=== PATIENT | male | born 1970 | race Caucasian/White ===

== ENCOUNTER 2016-06-19 17:59 | Inpatient (IN) | payer OTHER ==
[~2016-06-19] VITALS: Ht 188 cm; Wt 123.0 kg
[2016-06-19] MEDS ORDERED: METF750T2 PO (19:15)
[2016-06-19] MEDS ORDERED: LISI10TA2 PO (19:15)
[2016-06-19] MEDS ORDERED: INSU200I SQ (19:15)
[2016-06-19] MEDS ORDERED: SULF1TAB35 PO (19:15)
[2016-06-19] MEDS ORDERED: ATOR20TA66 PO (19:15)
[2016-06-19] MEDS ORDERED: CLIN300C11 PO (19:15)
[2016-06-19] MEDS ORDERED: MULT-35 PO (19:15)
[2016-06-19] MEDS ORDERED: HYDROcodone/APAP 7.5 MG/325 MG (LORTAB, LORCET PLUS) TABLET PO STA (19:33)
--- NOTE | 2016-06-19 19:41 | ED Lower Extremity ---
General Chief Complaint: Lower Extremity Stated Complaint: RT FOOT SWELLING,PAIN Nursing Triage Note: PT REPORTS HE SAW DR MCDONALD LAST , STARTED ON CLINDAMYCIN FOR RIGHT GREAT TOE ABSCESS. PAIN, REDNESS, SWELLING WORSENING. ADD'L ABX TODAY, BACTRIM. PT REPORTS PAIN IS UNBEARABLE. APPT WITH WOUND CARE SE[facility]. Nursing Sepsis Screen: Possible Sepsis Risk History of Present Illness Time seen by provider: 19:25 Initial Comments concerns about skin ulcer right great toe, started with blister to medial aspect at IP joint 2 weeks ago[address] Tre[address] by Dr. Mcdonald, starting with Clindamycin. Was told the culture grew 2-3 different bacteria. Called clinic today for increased pain, was not evaluated, started on Bactrim. Here for uncontrolled pain. Saw his Surveillance Manager 2 weeks ago, wound was not this progressed at that time. Patient went into DKA October 2015, no longer able to take Invokana. Has appt in wound care tomorrow. Severity: moderate (7/10) Pain/Injury Location: right 1st toe Method of Injury: other (Ulcer) Modifying Factors: Improves With Rest Allergies and Home Medications Allergies Coded Allergies: canagliflozin (Unverified Adverse Reaction, Unknown, 06/19/16) Home Medications Atorvastatin Calcium 20 Mg Tablet #30 20 MG PO DAILY (Reported) Clindamycin HCl 300 Mg Capsule #21 300 MG PO TID (Reported) Insulin Lispro 200 Unit/1 Ml Insuln.pen #12 42-46 UNITS SC TID (Reported) Lisinopril 10 Mg Tablet #30 10 MG PO DAILY (Reported) Metformin HCl 750 Mg Tab.er.24h #30 750 MG PO DAILY (Reported) Multivitamin 1 Each Tablet 1 EACH PO DAILY (Reported) Sulfamethoxazole/Trimethoprim 1 Each Tablet 1 EACH PO BID (Reported) Constitutional: no symptoms reported see HPI EENTM: no symptoms reported see HPI Respiratory: no symptoms reported see HPI Cardiovascular: no symptoms reported see HPI Gastrointestinal: no symptoms reported see HPI Genitourinary: no symptoms reported see HPI Musculoskeletal: see HPI joint pain (Right great toe) joint swelling muscle pain Skin: see HPI change in color (Right foot and great toe) lesions (Ulcer right great toe, IP joint laterally) Psychiatric/Neurological: No Symptoms Reported See HPI All Other Systems Reviewed Negative Unless Noted: Yes Past Bujvbxr-Csbmpo-Oediaj Hx Patient Social History Alcohol Use: Denies Use Recreational Drug Use: No Smoking Status: Never a Smoker Recent Foreign Travel: No Contact w/Someone Who Travel: No Recent Infectious Disease Expo: No Recent Hopitalizations: No (10/2015 DKA ([facility])) Physical Abuse Screen: No Sexual Abuse: No Seasonal Allergies Seasonal Allergies: No Surgeries HX Surgeries: Yes (LEFT FOOT BONE BIOPSY) Respiratory Hx Respiratory Disorders: No Cardiovascular Hx Cardiac Disorders: No Neurological Hx Neurological Disorders: No Genitourinary Hx Genitourinary Disorders: No Endocrine Hx Endocrine Disorders: Yes Endocrine Disorders: Diabetes, Non-Insulin dep Reviewed Nursing Assessment Reviewed/Agree w Nursing PMH: Yes Physical Exam Vital Signs Vital Sign - Last 12Hours 06/19/16 19:04 Temp 99.1 Pulse 114 Resp 20 B/P 175/85 Capillary Refill : Less Than 3 Seconds General Appearance: WD/WN HEENT: PERRL/EOMI normal ENT inspection TMs normal pharynx normal Neck: non-tender full range of motion supple Cardiovascular: normal peripheral pulses regular rate, rhythm no edema no murmur Respiratory: chest non-tender lungs clear normal breath sounds no respiratory distress no accessory muscle use Gastrointestinal: normal bowel sounds non tender soft Hips: bilateral hip non-tender, bilateral hip normal inspection, bilateral hip normal range of motion Knees: bilateral knee non-tender, bilateral knee normal inspection, bilateral knee normal range of motion, bilateral knee no evidence of injury Ankles: bilateral ankle non-tender, bilateral ankle normal inspection, bilateral ankle normal range of motion, bilateral ankle no evidence of injury Feet: left foot non-tender, left foot normal inspection, left foot normal range of motion, left foot no evidence of injury, right foot abrasions/ lacerations, right foot bone tenderness, right foot deformity, right foot infection, bilateral foot limited range of motion, right foot pain, right foot soft tissue tenderness, right foot swelling Reflexes: 2+ knee (R), 2+ knee (L), 2+ ankle (R), 2+ ankle (L) Neurologic/Tendon: normal sensation normal motor functions normal tendon functions Neurologic/Psychiatric: no motor/sensory deficits alert normal mood/affect oriented x 3 Skin: normal color warm/dry Lymphatic: No inguinal node tender (R), No inguinal node tender (L) Comments Right foot, erythema midfoot over 1st and 2nd metatarsals to MTP joints. Great toe, hung in color from MTP distally. Unable to shahbaz. Cap refill < 3 sec to 2nd-5th toes. Stage 2 ulcer to lateral aspect of IP joint with eschar noted, serosanguineous drainage noted. Progress/Results/Core Measures Results/Orders Lab Results Laboratory Tests Test 06/19/16 19:49 06/19/16 20:16 06/19/16 21:00 06/19/16 21:14 Range/Units Alanine Aminotransferase (ALT/SGPT) 12 0-55 U/L Albumin 3.9 3.2-4.5 G/DL Alkaline Phosphatase 92 40-136 U/L Anion Gap 12 5-14 MMOL/L Aspartate Amino Transf (AST/SGOT) 14 5-34 U/L BUN/Creatinine Ratio 18 Band Neutrophils 22 % Basophils # (Auto) 0.0 0.0-0.1 10^3/uL Basophils % (Manual) 0 % Basophils (%) (Auto) 0 0-10 % Blood Morphology Comment NORMAL Blood Urea Nitrogen 17 7-18 MG/DL C-Reactive Protein High Sensitivity 15.15 H 0.00-0.50 MG/DL Calcium Level 9.4 8.5-10.1 MG/DL Carbon Dioxide Level 19 L 21-32 MMOL/L Chloride Level 98 98-107 MMOL/L Creatinine 0.93 0.60-1.30 MG/DL Eosinophils # (Auto) 0.0 0.0-0.3 10^3/uL Eosinophils % (Manual) 0 % Eosinophils (%) (Auto) 0 0-10 % Erythrocyte Sedimentation Rate 7 0-15 MM/HR Estimat Glomerular Filtration Rate > 60 Glucose Level 266 H 70-105 MG/DL Hematocrit 39 L 40-54 % Hemoglobin 13.7 13.3-17.7 G/DL Lymphocytes # (Auto) 1.1 1.0-4.0 X 10^3 Lymphocytes % (Manual) 18 % Lymphocytes (%) (Auto) 7 L 12-44 % Mean Corpuscular Hemoglobin 31 25-34 PG Mean Corpuscular Hemoglobin Concent 35 32-36 G/DL Mean Corpuscular Volume 87 80-99 FL Mean Platelet Volume 9.7 7.4-10.4 FL Monocytes # (Auto) 1.9 H 0.0-1.0 X 10^3 Monocytes % (Manual) 7 % Monocytes (%) (Auto) 13 H 0-12 % Neutrophils # (Auto) 11.6 H 1.8-7.8 X 10^3 Neutrophils % (Manual) 53 % Neutrophils (%) (Auto) 80 H 42-75 % Platelet Count 280 130-400 10^3/uL Potassium Level 4.2 3.6-5.0 MMOL/L Red Blood Count 4.47 4.35-5.85 10^6/uL Red Cell Distribution Width 11.7 10.0-14.5 % Sodium Level 129 L 135-145 MMOL/L Total Bilirubin 1.1 H 0.1-1.0 MG/DL Total Protein 7.7 6.4-8.2 G/DL White Blood Count 14.6 H 4.3-11.0 10^3/uL Lactic Acid Level 1.0 1.3 0.5-2.0 MMOL/L Urine Bacteria NONE /HPF Urine Bilirubin NEGATIVE NEGATIVE Urine Casts NONE /LPF Urine Clarity CLEAR Urine Color YELLOW Urine Crystals NONE /LPF Urine Culture Indicated NO Urine Glucose (UA) 4+ H NEGATIVE Urine Ketones 4+ H NEGATIVE Urine Leukocyte Esterase NEGATIVE NEGATIVE Urine Mucus NEGATIVE /LPF Urine Nitrite NEGATIVE NEGATIVE Urine Protein 2+ H NEGATIVE Urine RBC 0-2 /HPF Urine RBC (Auto) 1+ H NEGATIVE Urine Specific [place] 1.015 L 1.016-1.022 Urine Squamous Epithelial Cells 2-5 /HPF Urine Urobilinogen 4 H NORMAL MG/DL Urine WBC NONE /HPF Urine pH 6 5-9 My Orders Orders-RAJIV MOREIRA Cbc With Automated Diff (06/19/16 19:33) Comprehensive Metabolic Panel (06/19/16 19:33) Hs C Reactive Protein (06/19/16 19:33) Erythrocyte Sedimentation Rate (06/19/16 19:33) Lactic Acid Analyzer (06/19/16 19:33) Ua Culture If Indicated (06/19/16 19:33) Foot, Right, 3 View (06/19/16 19:33) Hydrocodone/Apap 7.5/325 Tab (Lortab 7. (06/19/16 19:33) Saline Lock/Iv-Start (06/19/16 19:35) Manual Differential (06/19/16 19:49) Saline Lock/Iv-Start (06/19/16 20:44) Ns Iv 1000 Ml (Sodium Chloride 0.9%) (06/19/16 20:44) Ns Iv 1000 Ml (Sodium Chloride 0.9%) (06/19/16 20:39) Blood Culture (06/19/16 20:51) Lactic Acid Analyzer (06/19/16 20:51) Ibuprofen Tablet (Motrin Tablet) (06/19/16 21:38) Medications Given in ED Current Medications Medications Dose Ordered Sig/Elida Route Start Time Stop Time Status Last Admin Dose Admin Sodium Chloride 1,000 ml @ 0 mls/hr Q0M ONCE IV 06/19/16 20:44 06/19/16 20:45 DC 06/19/16 20:30 1,000 MLS/HR Vital Signs/I&O Vital Sign - Last 12Hours 06/19/16 19:04 Temp 99.1 Pulse 114 Resp 20 B/P 175/85 Blood Pressure Mean: 115 Progress Note : Time: 19:25 Progress Note Initial evaluation completed. Concerns over osteomyelitis. From MTP distally, on right great toe, the skin is nonblanchable and hung. Labs, x-rays and analgesics ordered. 1999 Reviewed x-ray findings with patient, concerns of osteomyelitis to distal phalanx right great toe. 2029 WBC 14.6; Lactic Acid 1.0; ESR 7, CRP 15.15; Na 129, Glucose 266. IV 1Liter NS started. [address] Barton, will admit for observation, start Vancomycin 1 gram IV in ED, Insulin [address] Chang will adjust the antibiotic orders tomorrow, based on cultures Dr. Mcdonald obtained last week. Admission bridge orders completed. Diagnostic Imaging Diagonstic Imaging: Xray Plain Films/CT/US/NM/MRI: other (right foot) Comments NAME: STEVEN CARBAJAL [facility] REC#: [id number] PT STATUS: REG ER : 1970 PHYSICIAN: RAJIV MOREIRA ADMIT DATE: 06/19/16/ER Draft Date of Exam:06/19/16 FOOT, RIGHT, 3 VIEW INDICATION: Blister along the medial side of the great toe for approximately 3-4 weeks. Blister has popped, now with swelling and discoloration to the toe radiating into the right toes. TECHNIQUE: 3 views of the right foot CORRELATION STUDY: None FINDINGS: There is a large amount of soft tissue gas over the region of the great toe and interposed between the first and second digits. There is fracture or destructive type change involving the of base of the distal phalanx of the great toe, extending into the interphalangeal joint. The proximal phalanx has a more normal appearance. The remaining osseous structures overall appear to be intact. Mild degenerative changes with mild osteophyte formation at the first MTP joint. Vascular calcifications are present. Prominent calcaneal spurring. IMPRESSION: 1. Soft tissue gas collections and swelling centered at the level of the great toe and interposed between the first and second digits. 2. There is a multipart fracture or perhaps destructive changes involving the base of the distal phalanx of the great toe. Given history, the possibility of osteomyelitis is not excluded. This could also be perhaps posttraumatic. Dictated on workstation # [id number] Dict: 06/19/161945 Trans: 06/19/161956 [facility] [id number] Interpreted by: CARLY BLISS DO Electronically signed by: Reviewed: Reviewed by Me Departure Impression Impression: Primary Impression: Ulcer Additional Impression: Osteomyelitis of ankle or foot, right, acute Disposition: 09 ADMITTED INPATIENT Condition: Stable Decision to Admit Reason: Admit from ER (General) Time/Decision to Admit Time: 21:30 Departure-Patient Inst. Referrals: JANUARY MCDONALD MD (PCP/Family) Primary Care Physician Copy Copies To 1: JANUARY MCDONALD MD Copies To 2: TITA SOTELO MD, AMY ARNP Jun 19, 2016 19:41 Copy Copies To 1: JANUARY MCDONALD MD Copies To 2: TITA SOTELO MD, AMY ARNP Jun 19, 2016 19:41
--- NOTE | 2016-06-19 19:57 | Diagnostic Imaging Report ---
INDICATION: Blister along the medial side of the great toe for approximately 3-4 weeks. Blister has popped, now with swelling and discoloration to the toe radiating into the right toes. TECHNIQUE: 3 views of the right foot CORRELATION STUDY: None FINDINGS: There is a large amount of soft tissue gas over the region of the great toe and interposed between the first and second digits. There is fracture or destructive type change involving the of base of the distal phalanx of the great toe, extending into the interphalangeal joint. The proximal phalanx has a more normal appearance. The remaining osseous structures overall appear to be intact. Mild degenerative changes with mild osteophyte formation at the first MTP joint. Vascular calcifications are present. Prominent calcaneal spurring. IMPRESSION: 1. Soft tissue gas collections and swelling centered at the level of the great toe and interposed between the first and second digits. 2. There is a multipart fracture or perhaps destructive changes involving the base of the distal phalanx of the great toe. Given history, the possibility of osteomyelitis is not excluded. This could also be perhaps posttraumatic. Dictated by: Dictated on workstation # [id number]
[2016-06-19 20:02] LABS: BASOPHILS % (AUTO) 0 % (0-10); EOSINOPHILS % (AUTO) 0 % (0-10); LYMPHOCYTES # (AUTO) 1.1 X 10^3 (1.0-4.0); LYMPHOCYTES % (AUTO) 7 % (12-44); MEAN CORPUSCULAR HEMOGLOBIN 31 PG (25-34); MEAN CORPUSCULAR HGB CONC 35 G/DL (32-36); MEAN CORPUSCULAR VOLUME 87 FL (80-99); MEAN PLATELET VOLUME 9.7 FL (7.4-10.4); MONOCYTES # (AUTO) 1.9 X 10^3 (0.0-1.0); MONOCYTES % (AUTO) 13 % (0-12); NEUTROPHILS # (AUTO) 11.6 X 10^3 (1.8-7.8); NEUTROPHILS % (AUTO) 80 % (42-75); PLATELET COUNT 280 10^3/uL (130-400); RED BLOOD COUNT 4.47 10^6/uL (4.35-5.85); RED CELL DISTRIBUTION WIDTH 11.7 % (10.0-14.5); WHITE BLOOD COUNT 14.6 10^3/uL (4.3-11.0)
[2016-06-19 20:17] LABS: BAND NEUTROPHILS 22 %; BASOPHILS % (MANUAL) 0 %; EOSINOPHILS % (MANUAL) 0 %; LYMPHOCYTES % (MANUAL) 18 %; NEUTROPHILS % (MANUAL) 53 %
[2016-06-19 20:23] LABS: ALANINE AMINOTRANSFERASE 12 U/L (0-55); ALBUMIN 3.9 G/DL (3.2-4.5); ANION GAP 12 MMOL/L (5-14); ASPARTATE AMINO TRANSFERASE 14 U/L (5-34); BILIRUBIN,TOTAL 1.1 MG/DL (0.1-1.0); BLOOD UREA NITROGEN 17 MG/DL (7-18); BUN/CREATININE RATIO 18; CALCIUM 9.4 MG/DL (8.5-10.1); CARBON DIOXIDE 19 MMOL/L (21-32); CHLORIDE 98 MMOL/L (98-107); CREATININE SERUM 0.93 MG/DL (0.60-1.30); GFR ESTIMATED > 60; GLUCOSE 266 MG/DL (70-105); POTASSIUM 4.2 MMOL/L (3.6-5.0); SODIUM 129 MMOL/L (135-145); TOTAL PROTEIN 7.7 G/DL (6.4-8.2); hs C REACTIVE PROTEIN 15.15 MG/DL (0.00-0.50)
[2016-06-19 20:27] LABS: ERYTHROCYTE SEDIMENTATION RATE 7 MM/HR (0-15)
[2016-06-19] MEDS ORDERED: NS IV 1000 ML 1,000 ML ONE (20:39)
[2016-06-19] MEDS ORDERED: NS IV 1000 ML 1,000 ML IV ONE (20:44)
[2016-06-19 21:07] LABS: BILIRUBIN,URINE NEGATIVE (NEGATIVE); KETONES,URINE 4+ (NEGATIVE); LEUKOCYTE ESTERASE ,URINE NEGATIVE (NEGATIVE); NITRITE,URINE NEGATIVE (NEGATIVE); PH,URINE 6 (5-9); PROTEIN,URINE 2+ (NEGATIVE); UROBILINOGEN,URINE 4 MG/DL (NORMAL)
[2016-06-19] MEDS ORDERED: IBUPROFEN 800 MG (MOTRIN) TAB PO STA (21:38)
[2016-06-19] MEDS ORDERED: inSUlin (REGULAR) HUMAN 1 UNIT/0.01 ML (CHARGE PER UNIT) SC STA (21:53)
[2016-06-19] MEDS ORDERED: SODIUM CHLORIDE (ADD-VANTAGE) 250 ML ONE (21:57)
[2016-06-19] MEDS ORDERED: VANCOMYCIN 1 GM ADD-VANTAGE VIAL IV ONE (21:57)
[2016-06-19] MEDS ORDERED: VANCOMYCIN IV ADD-VANTAGE 1,000 MG in SODIUM CHLORIDE (ADD-VANTAGE) 250 ML IV ONE (22:00)
[2016-06-19 22:45] VITALS: BP 140/78
[2016-06-19] MEDS ORDERED: IBUPROFEN 800 MG (MOTRIN) TAB PO PRN (23:30)
[2016-06-19] MEDS ORDERED: ONDANSETRON 4 MG/2 ML (SDV) Z0FRAN IV PRN (23:30)
[2016-06-19] MEDS ORDERED: HYDROcodone/APAP 5 MG/325 MG (LORTAB) TAB PO PRN (23:30)
[2016-06-20] VITALS: BP 128/65
[2016-06-20] MEDS ORDERED: NS IV 1000 ML 1,000 ML ONE (00:32)
[2016-06-20] MEDS: NS IV 1000 ML 1,000 ML IV SCH (00:53)
[2016-06-20 04:00] VITALS: BP 150/80
[2016-06-20 05:35] LABS: BASOPHILS % (AUTO) 0 % (0-10); EOSINOPHILS # (AUTO) 0.1 10^3/uL (0.0-0.3); EOSINOPHILS % (AUTO) 1 % (0-10); LYMPHOCYTES # (AUTO) 1.4 X 10^3 (1.0-4.0); LYMPHOCYTES % (AUTO) 13 % (12-44); MEAN CORPUSCULAR HEMOGLOBIN 30 PG (25-34); MEAN CORPUSCULAR HGB CONC 34 G/DL (32-36); MEAN CORPUSCULAR VOLUME 88 FL (80-99); MEAN PLATELET VOLUME 9.7 FL (7.4-10.4); MONOCYTES # (AUTO) 1.4 X 10^3 (0.0-1.0); MONOCYTES % (AUTO) 13 % (0-12); NEUTROPHILS # (AUTO) 7.8 X 10^3 (1.8-7.8); NEUTROPHILS % (AUTO) 74 % (42-75); PLATELET COUNT 226 10^3/uL (130-400); RED BLOOD COUNT 4.04 10^6/uL (4.35-5.85); RED CELL DISTRIBUTION WIDTH 11.8 % (10.0-14.5); WHITE BLOOD COUNT 10.6 10^3/uL (4.3-11.0)
[2016-06-20] MEDS: inSUlin (REGULAR) HUMAN 1 UNIT/0.01 ML (CHARGE PER UNIT) SC SCH ×4 (05:52→21:31)
[2016-06-20 05:54] LABS: ALANINE AMINOTRANSFERASE 10 U/L (0-55); ALBUMIN 3.2 G/DL (3.2-4.5); ANION GAP 11 MMOL/L (5-14); ASPARTATE AMINO TRANSFERASE 11 U/L (5-34); BILIRUBIN,TOTAL 0.9 MG/DL (0.1-1.0); BLOOD UREA NITROGEN 14 MG/DL (7-18); BUN/CREATININE RATIO 16; CALCIUM 8.6 MG/DL (8.5-10.1); CARBON DIOXIDE 18 MMOL/L (21-32); CHLORIDE 104 MMOL/L (98-107); CREATININE SERUM 0.85 MG/DL (0.60-1.30); GFR ESTIMATED > 60; GLUCOSE 300 MG/DL (70-105); POTASSIUM 4.5 MMOL/L (3.6-5.0); SODIUM 133 MMOL/L (135-145); TOTAL PROTEIN 6.3 G/DL (6.4-8.2)
[2016-06-20 08:00] VITALS: BP 167/90
[2016-06-20] MEDS ORDERED: INSU100V6 SC (08:08)
[2016-06-20] MEDS ORDERED: IBUP-30 PO (08:11)
[2016-06-20] MEDS ORDERED: FLU TRIvalent (5 YOA+) 2016-17 (AFLURIA) 0.5 ML IM ONE (10:00)
[2016-06-20 12:00] VITALS: BP 128/76
[2016-06-20] MEDS ORDERED: IBUPROFEN TABLET 200 MG TAB PO PRN (12:00)
[2016-06-20] MEDS ORDERED: VANCOMYCIN INJECTION 0.1 MG in NS (IVPB) 250 ML IV SCH (12:00)
[2016-06-20] MEDS ORDERED: VANCOMYCIN 2000 MG/NS 500 ML IVPB IV NR ×2 (12:00)
[2016-06-20] MEDS: lisINopril 10 MG (PRINIVIL) TAB PO SCH (13:05)
[2016-06-20] MEDS: ATORVASTATIN 20 MG (LIPITOR) TABLET PO SCH (13:06)
[2016-06-20] MEDS: inSUlin ASPART (NovoLOG) 1 UNIT/0.01 ML (CHARGE PER UNIT) SC SCH ×2 (13:42→19:13)
[2016-06-20 16:00] VITALS: BP 155/84
[2016-06-20] MEDS ORDERED: inSUlin ASPART (NovoLOG) 1 UNIT/0.01 ML (CHARGE PER UNIT) SC SCH (16:00)
--- NOTE | 2016-06-20 17:56 | Wound Care Progress Note ---
Subjective Subjective Subjective/Events-last exam 45 year old male diabetic with poor control of glucoe levels and history of blister of great toe for ~ two weeks. Admitted with cellulitis. On exam, the patient noted to have gangrene of toe. Surgical consultation recommended, accepted and called. Review of Systems General: Chills Fatigue HEENT: Head Aches Pulmonary: No Dyspnea Cardiovascular: No: Chest Pain Gastrointestinal: : Nausea Neurological: : Numbness Objective Exam Last Set of Vital Signs Vital Signs Date Time Temp Pulse Resp B/P Pulse Ox O2 Delivery O2 Flow Rate FiO2 06/20/16 16:00 98.9 109 20 155/84 98 Room Air Capillary Refill : Less Than 3 Seconds I&O Bad tableGeneral: Mild Distress HEENT: Atraumatic Lungs: Normal Air Movement Extremities: Other (Red streaking of ankle.) Skin: Other (R great toe, 11.0 x 10.0 x 0.3 cm, 25% eschar, 75% cyanotic mottled skin, periwound erythema.) Results Lab Laboratory Tests 06/19/16 19:49: Alanine Aminotransferase (ALT/SGPT) 12, Albumin 3.9, Alkaline Phosphatase 92, Anion Gap 12, Aspartate Amino Transf (AST/SGOT) 14, BUN/Creatinine Ratio 18, Band Neutrophils 22, Basophils # (Auto) 0.0, Basophils % (Manual) 0, Basophils ( %) (Auto) 0, Blood Morphology Comment NORMAL, Blood Urea Nitrogen 17, C- Reactive Protein High Sensitivity 15.15H, Calcium Level 9.4, Carbon Dioxide Level 19L, Chloride Level 98, Creatinine 0.93, Eosinophils # (Auto) 0.0, Eosinophils % (Manual) 0, Eosinophils (%) (Auto) 0, Erythrocyte Sedimentation Rate 7, Estimat Glomerular Filtration Rate > 60, Glucose Level 266H, Hematocrit 39L, Hemoglobin 13.7, Lymphocytes # (Auto) 1.1, Lymphocytes % (Manual) 18, Lymphocytes (%) (Auto) 7L, Mean Corpuscular Hemoglobin 31, Mean Corpuscular Hemoglobin Concent 35, Mean Corpuscular Volume 87, Mean Platelet Volume 9.7, Monocytes # (Auto) 1.9H, Monocytes % (Manual) 7, Monocytes (%) (Auto) 13H, Neutrophils # (Auto) 11.6H, Neutrophils % (Manual) 53, Neutrophils (%) (Auto) 80H, Platelet Count 280, Potassium Level 4.2, Red Blood Count 4.47, Red Cell Distribution Width 11.7, Sodium Level 129L, Total Bilirubin 1.1H, Total Protein 7.7, White Blood Count 14.6H 06/19/16 20:16: Lactic Acid Level 1.0 06/19/16 21:00: Urine Bacteria NONE, Urine Bilirubin NEGATIVE, Urine Casts NONE, Urine Clarity CLEAR, Urine Color YELLOW, Urine Crystals NONE, Urine Culture Indicated NO, Urine Glucose (UA) 4+H, Urine Ketones 4+H, Urine Leukocyte Esterase NEGATIVE, Urine Mucus NEGATIVE, Urine Nitrite NEGATIVE, Urine Protein 2+H, Urine RBC 0-2, Urine RBC (Auto) 1+H, Urine Specific [place] 1.015L, Urine Squamous Epithelial Cells 2-5, Urine Urobilinogen 4H, Urine WBC NONE, Urine pH 6 06/19/16 21:14: Lactic Acid Level 1.3 06/20/16 05:20: Alanine Aminotransferase (ALT/SGPT) 10, Albumin 3.2, Alkaline Phosphatase 75, Anion Gap 11, Aspartate Amino Transf (AST/SGOT) 11, BUN/Creatinine Ratio 16, Basophils # (Auto) 0.0, Basophils (%) (Auto) 0, Blood Urea Nitrogen 14, Calcium Level 8.6, Carbon Dioxide Level 18L, Chloride Level 104, Creatinine 0.85, Eosinophils # (Auto) 0.1, Eosinophils (%) (Auto) 1, Estimat Glomerular Filtration Rate > 60, Glucose Level 300H, Hematocrit 36L, Hemoglobin 12.2L, Lymphocytes # (Auto) 1.4, Lymphocytes (%) (Auto) 13, Mean Corpuscular Hemoglobin 30, Mean Corpuscular Hemoglobin Concent 34, Mean Corpuscular Volume 88, Mean Platelet Volume 9.7, Monocytes # (Auto) 1.4H, Monocytes (%) (Auto) 13H , Neutrophils # (Auto) 7.8, Neutrophils (%) (Auto) 74, Platelet Count 226, Potassium Level 4.5, Red Blood Count 4.04L, Red Cell Distribution Width 11.8, Sodium Level 133L, Total Bilirubin 0.9, Total Protein 6.3L, White Blood Count 10.6 06/20/16 05:41: Glucometer 277H 06/20/16 09:32: Glucometer 301H 06/20/16 11:22: Glucometer 296H Microbiology 06/19/16 Blood Culture - Preliminary, Resulted No growth 06/19/16 Gram Stain - Final, Resulted 06/19/16 Anaerobic Culture, Resulted Pending 06/19/16 Wound Culture - Preliminary, Resulted Escherichia Coli Probable Enterococcus Species Assessment/Plan Assessment/Plan Assessment/Plan 1. Diabetic ulcer, R great toe, Grade 4. 2. Cellulitis of R foot. Plan: Podiatric consultation. TITA SOTELO MD Jun 20, 2016 17:56
--- NOTE | 2016-06-20 17:58 | History & Physicial ([facility]) ---
HPI History of Present Illness: 45 yo M with IDDM that noticed a blister on his R foot a couple weeks ago. Seen in clinic and started on clindamycin. Yesterday called the clinic with increased pain and drainage and was started on Bactrim. Patient then went to ER because the pain increased. He has had similar wound on his other foot. Other then the pain he has been feeling well. No recent trauma to food. Source: patient, RN/MD, old records Exam Limitations: no limitations Date seen by provider: Jun 20, 2016 Attending Physician Nay Barton MD PCP Anjel Mcdonald MD Consult Date of Admission Jun 19, 2016 at 21:50 Home Medications Home Medications Reviewed patient Home Medication Reconciliation Form Allergies Coded Allergies: canagliflozin (Unverified Adverse Reaction, Unknown, 06/19/16) APE-Dogdbw-Opurep Hx Patient Social History Living Status: Lives with Alcohol Use: Denies Use Recreational Drug Use: No Smoking Status: Never a Smoker Recent Foreign Travel: No Contact w/other who traveled: No Recent Hopitalizations: No (10/2015 DKA ([facility])) Recent Infectious Disease Expo: No Physical Abuse Screen: No Sexual Abuse: No Past Medical History IDDM II HTN Family Medical History Family History: Diabetes mellitus 19 FATHER G8 SISTER FH: pulmonary embolism 19 FATHER Myocardial infarction 19 FATHER Review of Systems ([facility]) Constitutional: no symptoms reportedNo chills, No fever, No malaise, No weakness EENTM: no symptoms reported Respiratory: no symptoms reportedNo cough, No dyspnea on exertion, No short of breath Cardiovascular: no symptoms reportedNo chest pain, No edema Gastrointestinal: no symptoms reportedNo constipation, No diarrhea, No nausea , No vomiting Genitourinary: no symptoms reportedNo dysuria, No frequency, No hematuria Musculoskeletal: joint pain (right foot) Skin: other (No other ulcers present) Psychiatric/Neurological: No Symptoms Reported Reviewed Test Results Reviewed Test Results Lab Laboratory Tests Test 06/19/16 19:49 06/19/16 20:16 06/19/16 21:00 06/19/16 21:14 Range/Units Alanine Aminotransferase (ALT/SGPT) 12 0-55 U/L Albumin 3.9 3.2-4.5 G/DL Alkaline Phosphatase 92 40-136 U/L Anion Gap 12 5-14 MMOL/L Aspartate Amino Transf (AST/SGOT) 14 5-34 U/L BUN/Creatinine Ratio 18 Band Neutrophils 22 % Basophils # (Auto) 0.0 0.0-0.1 10^3/uL Basophils % (Manual) 0 % Basophils (%) (Auto) 0 0-10 % Blood Morphology Comment NORMAL Blood Urea Nitrogen 17 7-18 MG/DL C-Reactive Protein High Sensitivity 15.15 H 0.00-0.50 MG/DL Calcium Level 9.4 8.5-10.1 MG/DL Carbon Dioxide Level 19 L 21-32 MMOL/L Chloride Level 98 98-107 MMOL/L Creatinine 0.93 0.60-1.30 MG/DL Eosinophils # (Auto) 0.0 0.0-0.3 10^3/uL Eosinophils % (Manual) 0 % Eosinophils (%) (Auto) 0 0-10 % Erythrocyte Sedimentation Rate 7 0-15 MM/HR Estimat Glomerular Filtration Rate > 60 Glucose Level 266 H 70-105 MG/DL Hematocrit 39 L 40-54 % Hemoglobin 13.7 13.3-17.7 G/DL Lymphocytes # (Auto) 1.1 1.0-4.0 X 10^3 Lymphocytes % (Manual) 18 % Lymphocytes (%) (Auto) 7 L 12-44 % Mean Corpuscular Hemoglobin 31 25-34 PG Mean Corpuscular Hemoglobin Concent 35 32-36 G/DL Mean Corpuscular Volume 87 80-99 FL Mean Platelet Volume 9.7 7.4-10.4 FL Monocytes # (Auto) 1.9 H 0.0-1.0 X 10^3 Monocytes % (Manual) 7 % Monocytes (%) (Auto) 13 H 0-12 % Neutrophils # (Auto) 11.6 H 1.8-7.8 X 10^3 Neutrophils % (Manual) 53 % Neutrophils (%) (Auto) 80 H 42-75 % Platelet Count 280 130-400 10^3/uL Potassium Level 4.2 3.6-5.0 MMOL/L Red Blood Count 4.47 4.35-5.85 10^6/uL Red Cell Distribution Width 11.7 10.0-14.5 % Sodium Level 129 L 135-145 MMOL/L Total Bilirubin 1.1 H 0.1-1.0 MG/DL Total Protein 7.7 6.4-8.2 G/DL White Blood Count 14.6 H 4.3-11.0 10^3/uL Lactic Acid Level 1.0 1.3 0.5-2.0 MMOL/L Urine Bacteria NONE /HPF Urine Bilirubin NEGATIVE NEGATIVE Urine Casts NONE /LPF Urine Clarity CLEAR Urine Color YELLOW Urine Crystals NONE /LPF Urine Culture Indicated NO Urine Glucose (UA) 4+ H NEGATIVE Urine Ketones 4+ H NEGATIVE Urine Leukocyte Esterase NEGATIVE NEGATIVE Urine Mucus NEGATIVE /LPF Urine Nitrite NEGATIVE NEGATIVE Urine Protein 2+ H NEGATIVE Urine RBC 0-2 /HPF Urine RBC (Auto) 1+ H NEGATIVE Urine Specific [place] 1.015 L 1.016-1.022 Urine Squamous Epithelial Cells 2-5 /HPF Urine Urobilinogen 4 H NORMAL MG/DL Urine WBC NONE /HPF Urine pH 6 5-9 Test 06/20/16 05:20 06/20/16 05:41 06/20/16 09:32 06/20/16 11:22 Range/Units Alanine Aminotransferase (ALT/SGPT) 10 0-55 U/L Albumin 3.2 3.2-4.5 G/DL Alkaline Phosphatase 75 40-136 U/L Anion Gap 11 5-14 MMOL/L Aspartate Amino Transf (AST/SGOT) 11 5-34 U/L BUN/Creatinine Ratio 16 Basophils # (Auto) 0.0 0.0-0.1 10^3/uL Basophils (%) (Auto) 0 0-10 % Blood Urea Nitrogen 14 7-18 MG/DL Calcium Level 8.6 8.5-10.1 MG/DL Carbon Dioxide Level 18 L 21-32 MMOL/L Chloride Level 104 98-107 MMOL/L Creatinine 0.85 0.60-1.30 MG/DL Eosinophils # (Auto) 0.1 0.0-0.3 10^3/uL Eosinophils (%) (Auto) 1 0-10 % Estimat Glomerular Filtration Rate > 60 Glucose Level 300 H 70-105 MG/DL Hematocrit 36 L 40-54 % Hemoglobin 12.2 L 13.3-17.7 G/DL Lymphocytes # (Auto) 1.4 1.0-4.0 X 10^3 Lymphocytes (%) (Auto) 13 12-44 % Mean Corpuscular Hemoglobin 30 25-34 PG Mean Corpuscular Hemoglobin Concent 34 32-36 G/DL Mean Corpuscular Volume 88 80-99 FL Mean Platelet Volume 9.7 7.4-10.4 FL Monocytes # (Auto) 1.4 H 0.0-1.0 X 10^3 Monocytes (%) (Auto) 13 H 0-12 % Neutrophils # (Auto) 7.8 1.8-7.8 X 10^3 Neutrophils (%) (Auto) 74 42-75 % Platelet Count 226 130-400 10^3/uL Potassium Level 4.5 3.6-5.0 MMOL/L Red Blood Count 4.04 L 4.35-5.85 10^6/uL Red Cell Distribution Width 11.8 10.0-14.5 % Sodium Level 133 L 135-145 MMOL/L Total Bilirubin 0.9 0.1-1.0 MG/DL Total Protein 6.3 L 6.4-8.2 G/DL White Blood Count 10.6 4.3-11.0 10^3/uL Glucometer 277 H 301 H 296 H 70-110 MG/DL Radiology Date of Exam:06/19/16 FOOT, RIGHT, 3 VIEW INDICATION: Blister along the medial side of the great toe for approximately 3-4 weeks. Blister has popped, now with swelling and discoloration to the toe radiating into the right toes. TECHNIQUE: 3 views of the right foot CORRELATION STUDY: None FINDINGS: There is a large amount of soft tissue gas over the region of the great toe and interposed between the first and second digits. There is fracture or destructive type change involving the of base of the distal phalanx of the great toe, extending into the interphalangeal joint. The proximal phalanx has a more normal appearance. The remaining osseous structures overall appear to be intact. Mild degenerative changes with mild osteophyte formation at the first MTP joint. Vascular calcifications are present. Prominent calcaneal spurring. IMPRESSION: 1. Soft tissue gas collections and swelling centered at the level of the great toe and interposed between the first and second digits. 2. There is a multipart fracture or perhaps destructive changes involving the base of the distal phalanx of the great toe. Given history, the possibility of osteomyelitis is not excluded. This could also be perhaps posttraumatic. Physical Exam-([facility]) Physical Exam Vital Signs VS - Last 72 Hours, by Label 06/19/16 06/19/16 06/19/16 06/19/16 19:04 22:34 22:45 23:00 Temp 99.1 100.5 97.8 Pulse 114 119 117 Resp 20 20 18 B/P 175/85 140/78 Pulse Ox 99 96 O2 Delivery Room Air Room Air Room Air 06/19/16 06/20/16 06/20/16 06/20/16 23:09 00:00 04:00 08:00 Temp 97.5 96.0 99.3 Pulse 110 104 114 Resp 18 18 20 B/P 128/65 150/80 167/90 Pulse Ox 96 97 98 99 O2 Delivery Room Air Room Air Room Air 06/20/16 06/20/16 12:00 16:00 Temp 97.4 98.9 Pulse 112 109 Resp 20 20 B/P 128/76 155/84 Pulse Ox 97 98 O2 Delivery Room Air Room Air Capillary Refill : Less Than 3 Seconds General Appearance: WD/WN no apparent distress HEENT: PERRL/EOMI Neck: non-tender full range of motion supple normal inspection Respiratory: chest non-tender lungs clear normal breath sounds no respiratory distress no accessory muscle use Cardiovascular: regular rate, rhythm no edema no gallop no JVD no murmur Gastrointestinal: normal bowel sounds non tender soft no organomegaly no pulsatile mass Back: normal inspection no CVA tenderness no vertebral tenderness Extremities: no calf tenderness other (Ulcer present on Right great toe. Erythema on top of foot (marked with marker), seems to have receeded some with the antibiotics, Purulent drainage, probe to bone) Neurologic/Psychiatric: sales technician II-XII nml as tested alert normal mood/affect oriented x 3 sensory deficit (present on feet bilaterally) Assessment/Plan Assessment/Plan Admission Dx Diabetic foot ulcer Osteomyelitis Insulin Dependent DM II HTN Plan 45 yo M with known IDDM II admitted for Right foot wound Diabetic foot ulcer Right great toe - Dr Benavidez consulted for wound care and management - Cultures pending, Currently on Vancomycin - Concerned for need of amputation Osteomyelitis: See above Insulin Dependent DM II - Will start home insulin - A1c pending HTN: Controlled, continue home medications Dispo: Likely home tomorrow if surgery is not going to happen during this admission DVT PPX: Lovenox FEN: CHO diet Diagnosis/Problems: Clinical Quality Measures DVT/VTE Risk/Contraindication: Risk Factor Score Per Nursin RFS Level Per Nursing on Admit: 4+=Very High Copy Copies To 1: ANJEL MCDONALD MD, HOLLY R MD Jun 20, 2016 17:58
[2016-06-20] MEDS: IBUPROFEN 600 MG (MOTRIN) TAB PO PRN (19:15)
[2016-06-20 20:00] VITALS: BP 145/77
[2016-06-20] MEDS: VANCOMYCIN 1500 MG/NS 500 ML IVPB IV SCH ×2 (20:09)
[2016-06-20] MEDS ORDERED: IBUPROFEN 800 MG (MOTRIN) TAB PO PRN (23:30)
[2016-06-21] VITALS: BP 115/67
[2016-06-21] MEDS: NS IV 1000 ML 1,000 ML IV SCH ×2 (01:54→18:33)
[2016-06-21] MEDS: VANCOMYCIN 1500 MG/NS 500 ML IVPB IV SCH ×6 (04:57→21:08)
[2016-06-21 05:21] LABS: BASOPHILS % (AUTO) 0 % (0-10); EOSINOPHILS # (AUTO) 0.1 10^3/uL (0.0-0.3); EOSINOPHILS % (AUTO) 0 % (0-10); LYMPHOCYTES # (AUTO) 1.4 X 10^3 (1.0-4.0); LYMPHOCYTES % (AUTO) 12 % (12-44); MEAN CORPUSCULAR HEMOGLOBIN 31 PG (25-34); MEAN CORPUSCULAR HGB CONC 34 G/DL (32-36); MEAN CORPUSCULAR VOLUME 89 FL (80-99); MONOCYTES % (AUTO) 8 % (0-12); NEUTROPHILS # (AUTO) 9.8 X 10^3 (1.8-7.8); NEUTROPHILS % (AUTO) 80 % (42-75); PLATELET COUNT 269 10^3/uL (130-400); RED BLOOD COUNT 4.13 10^6/uL (4.35-5.85); RED CELL DISTRIBUTION WIDTH 11.8 % (10.0-14.5); WHITE BLOOD COUNT 12.4 10^3/uL (4.3-11.0)
[2016-06-21 05:39] LABS: ANION GAP 14 MMOL/L (5-14); BLOOD UREA NITROGEN 10 MG/DL (7-18); BUN/CREATININE RATIO 14; CALCIUM 8.7 MG/DL (8.5-10.1); CARBON DIOXIDE 15 MMOL/L (21-32); CHLORIDE 104 MMOL/L (98-107); CREATININE SERUM 0.74 MG/DL (0.60-1.30); GFR ESTIMATED > 60; GLUCOSE 242 MG/DL (70-105); POTASSIUM 4.2 MMOL/L (3.6-5.0); SODIUM 133 MMOL/L (135-145)
[2016-06-21] MEDS ORDERED: PIPERACILLIN SODIUM/TAZOBACTAM 4.5 GM in NS (BAXTER MINI) 100 ML IV NR (08:01)
[2016-06-21 08:20] VITALS: BP 118/56
[2016-06-21] MEDS ORDERED: lisINopril 10 MG (PRINIVIL) TAB PO SCH (09:00)
[2016-06-21] MEDS ORDERED: ATORVASTATIN 20 MG (LIPITOR) TABLET PO SCH (09:00)
[2016-06-21] MEDS ORDERED: LACTATED RINGERS 1,000 ML IV PRN (09:35)
--- NOTE | 2016-06-21 09:48 | CONSULTATION REPORT ---
DATE OF CONSULTATION: 06/21/2016 REFERRING PHYSICIAN: REASON FOR CONSULT: Diabetic foot ulceration. The patient developed a blister to the right great toe a little over week ago and was subsequently admitted through the ER, I believe a couple of days ago. The wound was evaluated by Dr. Cagle who suspected a deep abscess or osteomyelitis and consulted me for potential surgical intervention. The patient has had increased pain and discomfort with the toe over the last few days. He denies any trauma. He reports that it developed as a blister and then got progressively worse. PAST MEDICAL HISTORY: Includes: 1. IDDM type 2. 2. Hypertension. 3. He also has a recent hospitalization for DKA this last year at [place]. ALLERGIES: Canagliflozin. CURRENT MEDICATIONS: Listed on the patient's chart which includes: Vancomycin. SOCIAL HISTORY: The patient denies tobacco or alcohol or illicit drug use. He recently lost his employment. PHYSICAL EXAM: This is a well-developed male in no apparent distress. Current temperature is 99.2. White blood cell count is currently 12.4. The patient has palpable pedal pulses bilaterally. Capillary refill time is approximately 3 seconds to the left hallux. There is dusky discoloration to the right hallux with serous sanguinous drainage from the medial and dorsal aspect of the digit with edema present. There is proximal streaking demarcated previously with a pen which does not extend beyond the line of the medial aspect of the foot or the pen line. X-rays were reviewed which demonstrates gas within the right hallux and some fracture or disruption of bone to bone osteomyelitis. ASSESSMENT: Diabetic ulceration with cellulitis and likely osteomyelitis right hallux. PLAN: Various treatment options were discussed with the patient. We consented the patient for incision and drainage of the right hallux as well as a possible amputation of the digit today. He is to remain n.p.o. His antibiotics were changed to include Zosyn, as well as the vancomycin he is currently under. Job ID: [id number] Dictated Date: 06/21/2016 08:11:49 Sales Outfitter Date: 06/21/2016 09:20:18/jaki ROSENBAUM
[2016-06-21] MEDS: lisINopril 10 MG (PRINIVIL) TAB PO SCH ×2 (10:38→15:05)
[2016-06-21] MEDS: inSUlin (REGULAR) HUMAN 1 UNIT/0.01 ML (CHARGE PER UNIT) SC SCH ×4 (10:38→22:46)
[2016-06-21] MEDS: ATORVASTATIN 20 MG (LIPITOR) TABLET PO SCH ×2 (10:38→15:05)
[2016-06-21] MEDS: inSUlin ASPART (NovoLOG) 1 UNIT/0.01 ML (CHARGE PER UNIT) SC SCH ×3 (10:38→16:24)
[2016-06-21] MEDS ORDERED: FAMOTIDINE 20MG/2ML IV (PEPCID) ONE (11:24)
[2016-06-21] MEDS ORDERED: MIDAZOLAM 2 MG/2 ML (VERSED) VIAL ONE (11:24)
[2016-06-21] MEDS ORDERED: fentaNYL INJECTION 100 MCG/2 ML AMP ONE (11:24)
[2016-06-21] MEDS ORDERED: LACTATED RINGERS 1,000 ML IV ONE (11:24)
[2016-06-21] MEDS ORDERED: ONDANSETRON 4 MG/2 ML (SDV) Z0FRAN ONE ×3 (11:24→13:27)
[2016-06-21] MEDS ORDERED: SEVOFLURANE (ULTANE) 15 ML INHAL SOLN ONE ×3 (11:24→12:57)
[2016-06-21] MEDS ORDERED: LIDOCAINE PF 2% 10 ML (XYLOCAINE) AMP ONE (11:24)
[2016-06-21] MEDS ORDERED: proPOfol 200 MG/20 ML (DIPRIVAN) VIAL IV ONE (11:24)
[2016-06-21] MEDS: LACTATED RINGERS 1,000 ML IV SCH (12:38)
[2016-06-21] MEDS ORDERED: morphine INJ 10 MG/ML 1ML (SYR OR VIAL) ONE (12:46)
--- NOTE | 2016-06-21 12:50 | Progress Note-Pre Operative ---
Pre-Operative Progress Note H&P Reviewed The H&P was reviewed, patient examined and no changes noted. Date H&P Reviewed: Jun 21, 2016 Time H&P Reviewed: 11:58 Pre-Operative Diagnosis: Cellulitis, osteomyelitis, right hallux DALI MIRZA DPM Jun 21, 2016 12:49 pm
--- NOTE | 2016-06-21 12:51 | Progress Note-Post Operative ---
Post-Operative Progess Note Pre-Operative Diagnosis Cellulitis, osteomyelitis, right hallux Post-Operative Diagnosis Same Post-Op Procedure Note Date of Procedure: Jun 21, 2016 Name of Procedure: Amputation of the right hallux with incision and drainage of deep abscess Anesthesia Type General Estimated blood loss (mL): Minimal Packing: Iodoform Specimen(s) collected Right hallux DALI MIRZA DPM Jun 21, 2016 12:51 pm
[2016-06-21] MEDS ORDERED: TROUGH ORDER-PHARMACY XX NR (13:00)
[2016-06-21] MEDS ORDERED: HYDROcodone/APAP 5 MG/325 MG (LORTAB) TAB PO PRN (13:00)
[2016-06-21] MEDS ORDERED: ONDANSETRON 4 MG/2 ML (SDV) Z0FRAN IVP PRN ×2 (13:00→13:15)
[2016-06-21] MEDS ORDERED: HYDROmorphone (DILAUDID) 2 MG/ML VIAL IVP PRN (13:15)
[2016-06-21] MEDS ORDERED: morphine INJ 10 MG/ML 1ML (SYR OR VIAL) IVP PRN (13:15)
[2016-06-21] MEDS ORDERED: fentaNYL INJECTION 100 MCG/2 ML AMP IVP PRN (13:15)
[2016-06-21 14:24] VITALS: BP 138/83
--- NOTE | 2016-06-21 15:21 | Progress Note (SOAP) ---
Subjective Subjective/Events-last exam Saw patient after his operation. Patient had amputation of Right great toe. States that his pain is under control. Denies any N/V since surgery. Date seen by provider: Jun 21, 2016 Objective Exam Last Set of Vital Signs Vital Signs Date Time Temp Pulse Resp B/P Pulse Ox O2 Delivery O2 Flow Rate FiO2 06/21/16 14:24 97.9 106 22 138/83 93 2.00 06/21/16 08:20 Room Air Capillary Refill : Less Than 3 Seconds I&O Intake and Output 06/21/16 00:00 Intake Total 4391 ml Output Total 5250 ml Balance -859 ml Intake Oral 3106 ml IV Total 1285 ml Output Urine Total 5250 ml General: Alert, Oriented X3, Cooperative, No Acute Distress (sleepy) Lungs: Clear to Auscultation, Normal Air Movement Heart: Regular Rate, Normal S1, Normal S2, No Murmurs Abdomen: Normal Bowel Sounds, Soft, No Tenderness, No Hepatosplenomegaly, No Masses Extremities: Other (Right foot in bandage: mild swelling at the ankle level) Neuro: Normal Speech Psych/Mental Status: Mental Status NL, Mood NL Results/Procedures Lab Laboratory Tests 06/20/16 21:26: Glucometer 236H 06/21/16 05:00: Anion Gap 14, BUN/Creatinine Ratio 14, Basophils # (Auto) 0.0, Basophils (%) ( Auto) 0, Blood Urea Nitrogen 10, Calcium Level 8.7, Carbon Dioxide Level 15L, Chloride Level 104, Creatinine 0.74, Eosinophils # (Auto) 0.1, Eosinophils (%) ( Auto) 0, Estimat Glomerular Filtration Rate > 60, Glucose Level 242H, Hematocrit 37L, Hemoglobin 12.6L, Hemoglobin A1c 10.5H, Lymphocytes # (Auto) 1.4 , Lymphocytes (%) (Auto) 12, Mean Corpuscular Hemoglobin 31, Mean Corpuscular Hemoglobin Concent 34, Mean Corpuscular Volume 89, Mean Platelet Volume 10.0, Monocytes # (Auto) 1.0, Monocytes (%) (Auto) 8, Neutrophils # (Auto) 9.8H, Neutrophils (%) (Auto) 80H, Platelet Count 269, Potassium Level 4.2, Red Blood Count 4.13L, Red Cell Distribution Width 11.8, Sodium Level 133L, White Blood Count 12.4H 06/21/16 10:34: Glucometer 245H 06/21/16 13:51: Glucometer 247H 06/21/16 14:05: Vancomycin Level Trough 11.0 Microbiology 06/19/16 Blood Culture - Preliminary, Resulted No growth 06/19/16 Gram Stain - Final, Resulted 06/19/16 Anaerobic Culture - Preliminary, Resulted 06/19/16 Wound Culture - Preliminary, Resulted Escherichia Coli Enterococcus Faecalis Radiology Date of Exam:06/19/16 FOOT, RIGHT, 3 VIEW INDICATION: Blister along the medial side of the great toe for approximately 3-4 weeks. Blister has popped, now with swelling and discoloration to the toe radiating into the right toes. TECHNIQUE: 3 views of the right foot CORRELATION STUDY: None FINDINGS: There is a large amount of soft tissue gas over the region of the great toe and interposed between the first and second digits. There is fracture or destructive type change involving the of base of the distal phalanx of the great toe, extending into the interphalangeal joint. The proximal phalanx has a more normal appearance. The remaining osseous structures overall appear to be intact. Mild degenerative changes with mild osteophyte formation at the first MTP joint. Vascular calcifications are present. Prominent calcaneal spurring. IMPRESSION: 1. Soft tissue gas collections and swelling centered at the level of the great toe and interposed between the first and second digits. 2. There is a multipart fracture or perhaps destructive changes involving the base of the distal phalanx of the great toe. Given history, the possibility of osteomyelitis is not excluded. This could also be perhaps posttraumatic. Procedures Right Great toe amputation performed today but surgeon Assessment/Plan Assessment/Plan Admission Dx Diabetic foot ulcer Osteomyelitis Insulin Dependent DM II HTN Plan 45 yo M with known IDDM II admitted for Right foot wound Diabetic foot ulcer Right great toe s/p amputation POD #0 - Pain and wound management per surgery - Currently on Vancomycin/Zosyn D3 - PT to start tomorrow, weight bearing status per surgery Osteomyelitis: See above Insulin Dependent DM II: Uncontrolled - Will start home insulin - A1c 10.5, will need strict blood sugar control for wound healing - Will order DM education HTN: Controlled, continue home medications Dispo: continue admission for IV Antibiotics DVT PPX: Lovenox tomorrow if ok with surgery FEN: CHO diet Diagnosis/Problems: Clinical Quality Measures DVT/VTE Risk/Contraindication: Risk Factor Score Per Nursin RFS Level Per Nursing on Admit: 4+=Very High RUBIA PARRISH MD Jun 21, 2016 15:21
[2016-06-21] MEDS: PIPERACILLIN SODIUM/TAZOBACTAM 4.5 GM in NORMAL SALINE (BAXTER MINI) 100 ML IV SCH ×2 (15:23→22:46)
--- NOTE | 2016-06-21 15:35 | Physical Therapy Evaluation ---
PT Evaluation-General Medical Diagnosis Admission Date Jun 19, 2016 at 22:40 Medical Diagnosis: right great toe amputation Onset Date: Jun 21, 2016 Therapy Diagnosis Therapy Diagnosis: impaired mobility, balance, endurance Height/Weight Height (Feet): 6 Height (Inches): 2.00 Weight (Pounds): 271 Weight (Ounces): 1.0 Precautions Precautions/Isolations: Standard Precautions Weight Bear Status Weight Bearing Restriction: Non Weight Bearing Location Restriction: RT FOOT Referral Physician: Thierno Garcia DPM Reason for Referral: Evaluation/Treatment Medical History Pertinent Medical History: DM, HTN Current History Patient had a blister on his right foot and eventually went to ER. Social History Home: Single Level Current Living Status: Spouse Entry Into Home: Stairs With Railing PT Steps Into Home: 5 Prior/Core FIM Prior Level of Function Functional [place] Measure 0=Not Assessed/NA 4=Minimal Assistance 1=Total Assistance 5=Supervision or Setup 2=Maximal Assistance 6=Modified [place] 3=Moderate Assistance 7=Complete [place] Bed Mobility: 7 Transfers (B,C,W/C) (FIM): 7 Gait: 7 PT Evaluation-Current Subjective Patient in bed pre tx, agrees to PT but is still groggy. Would like to use crutches. Pain Numeric Pain Scale: 3 Location: Right Location Body Site: Foot Pt/Family Goals to be independent at home Objective Patient Orientation: Normal For Age Attachments: IV ROM/Strength ROM Lower Extremities WNL except for surgery site Strenght Lower Extremities 5/5 gross bilateral lower extremities, ankle not tested Integumentary/Posture Bowel Incontinence: No Bladder Incontinence: No Neuromuscular (Tone, Coordination, Reflexes) WNL Sensory Vision: Functional Hearing: Functional Sensation Right Lower Extremit: Intact Sensation Left Lower Extremity: Intact Transfers Functional [place] Measure 0=Not Assessed/NA 4=Minimal Assistance 1=Total Assistance 5=Supervision or Setup 2=Maximal Assistance 6=Modified [place] 3=Moderate Assistance 7=Complete [place] Transfers (B, C, W/C) (FIM): 4 Scootin Rollin Supine to/from Sit: 4 Sit to/from Stand: 4 Patient needed min assist for supine to sit and for sit to stand. He was fairly unsteady when standing and still groggy but no dizziness. Needs cues for safety and hand placement. Gait Mode of Locomotion: Walk Anticipated Mode of Locomotion: Walk Gait (FIM): 1 Distance: 10'x2 Gait Level of Assist: 4 Gait Persons Needed: 1 Gait Assistive Device: Crutches Comments/Gait Description Patient needs careful guarding due to unsteadiness. He became light headed and needed to sit but recovered quickly and went back to his bed. Balance Sitting Static: Normal Sitting Dynamic: Normal Standing Static: Fair Standing Dynamic: Fair Treatment RLE exercises x 20 (AP, QS, LAQ) Assessment/Needs Patient has impaired mobility, balance, and endurance. Rehab Potential: Fair PT Station Installation Supervisor Goals Station Installation Supervisor Goals PT Station Installation Supervisor Goals Time Frame: Jun 28, 2016 Transfers (B,C,W/C) (FIM): 5 Gait (FIM): 5 Distance: 150' Gait Level of Assist: 5 Gait Assistive Device: Crutches Stairs (FIM): 2 # of Steps: 4 Stairs Level Of Assist: 4 (CGA) PT Plan Problem List Problem List: Activity Tolerance, Functional Strength, Safety, Balance, Gait, Transfer, Bed Mobility Treatment/Plan Treatment Plan: Continue Plan of Care Treatment Plan: Bed Mobility, Education, Functional Activity Fritz, Functional Strength, Gait, Safety, Therapeutic Exercise, Transfers Treatment Duration: Jun 28, 2016 # of days/week 5-6 Visits Per Week: 10-11 Minutes/Day (M-F): 15-30 Minutes/Day (Sat/Chu): 15-30 Pt/Family Agrees w/Plan: Yes Safety Risks/Education Patient Education: Gait Training, Transfer Techniques, Safety Issues Teaching Recipient: Patient Teaching Methods: Demonstration, Discussion Response to Teaching: Reinforcement Needed Discharge Recommendations Plan Patient will perform bed mobility and transfer training, balance and endurance training, functional strengthening, stair training, gait training, education, to improve functional mobility and independence at home. Therapy D/C Recommendations: Home w/ Family Support Time/GCodes Time In: 1515 Time Out: 1530 Total Billed Treatment Time: 15 Total Billed Treatment 1 visit EVL 15 min JEFFREY CARTER PT Jun 21, 2016 15:35
[2016-06-21 16:00] VITALS: BP 121/77
[2016-06-21] MEDS: IBUPROFEN 600 MG (MOTRIN) TAB PO PRN (16:23)
[2016-06-22] VITALS: BP 138/81
[2016-06-22] MEDS: IBUPROFEN 600 MG (MOTRIN) TAB PO PRN ×2 (03:27→20:18)
[2016-06-22 04:00] VITALS: BP 154/93
[2016-06-22] MEDS: VANCOMYCIN 1500 MG/NS 500 ML IVPB IV SCH ×6 (05:04→22:08)
[2016-06-22] MEDS: PIPERACILLIN SODIUM/TAZOBACTAM 4.5 GM in NORMAL SALINE (BAXTER MINI) 100 ML IV SCH ×3 (06:40→22:08)
[2016-06-22] MEDS ORDERED: CATHETER FLUSH 10 ML SYR IV PRN (07:45)
[2016-06-22] MEDS: inSUlin (REGULAR) HUMAN 1 UNIT/0.01 ML (CHARGE PER UNIT) SC SCH ×3 (07:49→21:48)
[2016-06-22] MEDS: inSUlin ASPART (NovoLOG) 1 UNIT/0.01 ML (CHARGE PER UNIT) SC SCH ×3 (07:50→18:56)
[2016-06-22 08:00] VITALS: BP 146/84
[2016-06-22 09:20] LABS: BASOPHILS % (AUTO) 0 % (0-10); EOSINOPHILS # (AUTO) 0.1 10^3/uL (0.0-0.3); EOSINOPHILS % (AUTO) 1 % (0-10); LYMPHOCYTES # (AUTO) 1.3 X 10^3 (1.0-4.0); LYMPHOCYTES % (AUTO) 15 % (12-44); MEAN CORPUSCULAR HEMOGLOBIN 31 PG (25-34); MEAN CORPUSCULAR HGB CONC 34 G/DL (32-36); MEAN CORPUSCULAR VOLUME 90 FL (80-99); MEAN PLATELET VOLUME 9.6 FL (7.4-10.4); MONOCYTES # (AUTO) 0.5 X 10^3 (0.0-1.0); MONOCYTES % (AUTO) 6 % (0-12); NEUTROPHILS # (AUTO) 6.9 X 10^3 (1.8-7.8); NEUTROPHILS % (AUTO) 78 % (42-75); PLATELET COUNT 280 10^3/uL (130-400); RED BLOOD COUNT 3.97 10^6/uL (4.35-5.85); RED CELL DISTRIBUTION WIDTH 11.8 % (10.0-14.5); WHITE BLOOD COUNT 8.8 10^3/uL (4.3-11.0)
[2016-06-22 09:32] LABS: ANION GAP 10 MMOL/L (5-14); BLOOD UREA NITROGEN 10 MG/DL (7-18); BUN/CREATININE RATIO 12; CALCIUM 8.7 MG/DL (8.5-10.1); CARBON DIOXIDE 19 MMOL/L (21-32); CHLORIDE 107 MMOL/L (98-107); CREATININE SERUM 0.81 MG/DL (0.60-1.30); GFR ESTIMATED > 60; GLUCOSE 262 MG/DL (70-105); POTASSIUM 3.8 MMOL/L (3.6-5.0); SODIUM 136 MMOL/L (135-145)
--- NOTE | 2016-06-22 09:34 | Anesthesia-General Post-Op ---
General Patient Condition Mental Status/LOC: Same as Preop Cardiovascular: Satisfactory Nausea/Vomiting: Absent Respiratory: Satisfactory Pain: Controlled Complications: Absent Post Op Complications Complications None Follow Up Care/Instructions Patient Instructions None needed. Anesthesia/Patient Condition Patient Condition Patient is doing well, no complaints, stable vital signs, no apparent adverse anesthesia problems. No complications reported per nursing. LALI DENNIS CRNA Jun 22, 2016 09:34
[2016-06-22] MEDS: lisINopril 10 MG (PRINIVIL) TAB PO SCH (10:04)
[2016-06-22] MEDS: ATORVASTATIN 20 MG (LIPITOR) TABLET PO SCH (10:04)
--- NOTE | 2016-06-22 10:15 | Physical Therapy Daily Note ---
PT Daily Note-Current Subjective Patient is in bed and agrees to PT. Pain Numeric Pain Scale: 5-Moderate Pain Location: Right Location Body Site: Foot Pain Description: Acute Mental Status Patient Orientation: Normal For Age Attachments: IV Transfers Functional [place] Measure 0=Not Assessed/NA 4=Minimal Assistance 1=Total Assistance 5=Supervision or Setup 2=Maximal Assistance 6=Modified [place] 3=Moderate Assistance 7=Complete IndependenceIRFPAI Quality Coding Scale 6 Independent with activity with or without an assistive device 5 Patient requires set up or clean up by helper. Patient completes activity by themselves 4 Supervision or touching assist (CGA). [place] provide cues , steadying assist 3 The helper provides less than half the effort to complete the activity 2 The helper provides more than half the effort to complete the activity 1 Dependent. The helper does all the effort to complete an activity 7 Patient refused to complete or attempt activity 9 The patient did not perform the activity before the current illness or injury 88 Not attempted due to Medical conditions or safety concerns Transfers (B, C, W/C) (FIM): 6 Scootin Rollin Supine to/from Sit: 6 Sit to/from Stand: 6 Weight Bearing Weight Bearing Restriction: Non Weight Bearing Location Restriction: RT FOOT Gait Training Gait (FIM): 4 Distance (FIM): 3=150 ft Distance: 150' Gait Level of Assist: 4 Gait Persons Needed: 1 Gait Assistive Device: Crutches NWB right foot Assessment Patient educated on gait training with crutches. PT addressed knee scooter possibility for home use. Patient improve mobility. PT Skilled Nursing Goals Skilled Nursing Goals PT Swimming Pool Maintenance Supervisor Goals Time Frame: Jun 28, 2016 Transfers (B,C,W/C) (FIM): 5 Gait (FIM): 5 Distance: 150' Gait Level of Assist: 5 Gait Assistive Device: Crutches Stairs (FIM): 2 # of Steps: 4 Stairs Level Of Assist: 4 (CGA) PT Plan Treatment/Plan Treatment Plan: Continue Plan of Care Treatment Plan: Bed Mobility, Education, Functional Activity Fritz, Functional Strength, Gait, Safety, Therapeutic Exercise, Transfers Treatment Duration: Jun 28, 2016 Visits Per Week: 10-11 Minutes/Day (M-F): 15-30 Minutes/Day (Sat/Chu): 15-30 Safety Risks/Education Patient Education: Gait Training Teaching Recipient: Patient Teaching Methods: Demonstration, Discussion Response to Teaching: Verbalize Understanding, Return Demonstration Time/GCodes Time In: 925 Time Out: 940 Total Billed Treatment Time: 15 Total Billed Treatment 1 visit GT 15 min ARDEN ZAPIEN PT Jun 22, 2016 10:15
--- NOTE | 2016-06-22 11:28 | Podiatry Progress Note ---
Standard Progress Note Progress Notes/Assess & Plan Progress/Assessment & Plan Post op day #1. The patient reports some pain, no F/C/N/V. He "feels much better". Vital Signs Date Time Temp Pulse Resp B/P Pulse Ox O2 Delivery O2 Flow Rate FiO2 06/22/16 08:00 98.0 95 20 146/84 95 Room Air 06/22/16 04:00 97.5 97 20 154/93 96 Room Air 06/22/16 00:00 98.4 100 20 138/81 97 Room Air 06/21/16 19:30 95 Room Air 06/21/16 16:00 99.2 104 20 121/77 93 Room Air 06/21/16 14:24 97.9 106 22 138/83 93 2.00 I & O 06/22/16 07:00 Intake Total 4325 ml Output Total 3750 ml Balance 575 ml The wound to the right foot is improved with an increase of granular tissue. There is no necrosis of the wound or skin edges. No mal-odor, with decreased erythema to the dorsum of the right foot. A/P: S/P amputation of the right hallux with I&D of deep abscess Sterile dressing change to the right foot with dilute betadine wet-to-dry dressing. Continue with IV antibiotics. Will evaluate tomorrow morning and will likely perform delayed primary closure to the right foot tomorrow afternoon. NPO after midnight. He will likely go home 06-24-2016 on PO antibiotics and he is to follow up in the [facility] clinic on Jun 30 at 9am Final Diagnosis Osteomyelitis, cellulitis right foot DALI MIRZA DPM Jun 22, 2016 11:28
--- NOTE | 2016-06-22 12:29 | OPERATIVE REPORT ---
PROCEDURE PHYSICIAN: YELITZA MIRZA DATE OF PROCEDURE: 06/21/2016 SURGEON: Yelitza Mirza DPM. PREOPERATIVE DIAGNOSIS: Cellulitis and osteomyelitis of the right hallux. POSTOPERATIVE DIAGNOSIS: Cellulitis and osteomyelitis of the right hallux with deep abscess, right foot PROCEDURE: Amputation of right hallux with incision and drainage of deep abscess. WOUND CLASS: Contaminated. ANESTHESIA: General. HEMOSTASIS: Pneumatic thigh tourniquet at 300 mmHg. INDICATION: This 45-year-old male was admitted through the ER for care of the cellulitic right great toe. X-rays were taken which demonstrated degeneration of the bones of the right hallux. There are dusky progressive changes to the right great toe over the last several days. There is also an odor coming from the toes. X-rays also demonstrated gas in the soft tissues. Conservative and surgical options were discussed with the patient and it is evident to me that this certainly needed surgical debridement as soon as possible which the patient was consented for. He understands that that there may need to be further procedures and amputations if necessary. No guarantees were extended to the patient and informed consent was explained and signed. PROCEDURE: The patient was brought back to the operative table, placed in secure, supine position. General anesthetic was then induced. Appropriate timeout was performed. A thigh tourniquet was placed on the right lower extremity over several layers of padding. The right foot was then prepped and draped in a normal sterile manner. The right foot was then elevated, allowed to exsanguinate after which the tourniquet was inflated to 300 mmHg. Attention was then directed to the right hallux where a dark dusky discoloration was noted to the distal aspect of the toe. At the medial aspect of the interphalangeal joint of the hallux there is a full thickness wound which when probed with the 15 blade, extended directly down to bone where there was significant deterioration to the integrity of the adjacent bone consistent with osteomyelitis. A rongeur was used to retrieve some of this bone was sent for cultures and sensitivities. It was then decided that the hallux amputation would be appropriate for this patient and a racquet-type incision was made starting from the medial aspect of the first metatarsophalangeal joint, extending distally in a circumference fashion around the diaphysis of the proximal phalanx area. This also was consistent with dusky area of the right hallux. There is a disarticulation performed at the metatarsophalangeal joint and the hallux was then sent for gross and microscopic evaluation. The dark necrotic tissue was then debrided from the plantar and lateral aspect of the first metatarsal head. There was probing of purulent pocket to the first intermetatarsal space that extended approximately 3 cm. Once this was flushed, no other deep abscess was identified to the intermetatarsal space. The extensor tendon was identified to have a purulent tissue, which was explored dorsally. A dorsal incision was then created following the path of the deep abscess along the extensor hallucis longus tendon which extended approximately 2.5 cm. After all purulent and gangrenous tissue was removed, the wound had a swab culture taken of the deep abscess in the first intermetatarsal space after which pulse lavage was performed with 3 liters of normal saline. The tourniquet was released and no active bleeders were identified at this time. The wound was then was packed with half-inch Iodoform to the deep abscess and then Betadine wet to dry dressing with sterile gauze, Kerlix, and Coban wrap. The patient tolerated the anesthesia and procedure well and was transported to recovery with vital signs stable and vascular status intact to the remaining digits of the right foot. Postoperative instructions were given to stay nonweightbearing on the right foot. He will continue with Piperacillin as well as the vancomycin at this point IV and we will plan for a delayed primary closure once the wound is stabilized Job ID: [id number] Dictated Date: 06/21/2016 13:11:15 Order Takers Supervisor Date: 06/22/2016 12:17:43 / gamaliel
[2016-06-22] MEDS ORDERED: NORMAL SALINE (BAXTER MINI) 0 ML IV ONE (14:24)
[2016-06-22] MEDS ORDERED: PIPERACILLIN/TAZO 4.5 GM VIAL (ZOSYN) IV ONE (14:24)
[2016-06-22] MEDS: CATHETER FLUSH 10 ML SYR IV SCH ×2 (14:28→22:08)
--- NOTE | 2016-06-22 14:46 | Physical Therapy Daily Note ---
PT Daily Note-Current Subjective Patient just complete with shower and agrees to PT. Pain Numeric Pain Scale: 0-No Pain Location: No Pain Reported Mental Status Patient Orientation: Normal For Age Transfers Functional [place] Measure 0=Not Assessed/NA 4=Minimal Assistance 1=Total Assistance 5=Supervision or Setup 2=Maximal Assistance 6=Modified [place] 3=Moderate Assistance 7=Complete IndependenceIRFPAI Quality Coding Scale 6 Independent with activity with or without an assistive device 5 Patient requires set up or clean up by helper. Patient completes activity by themselves 4 Supervision or touching assist (CGA). [place] provide cues , steadying assist 3 The helper provides less than half the effort to complete the activity 2 The helper provides more than half the effort to complete the activity 1 Dependent. The helper does all the effort to complete an activity 7 Patient refused to complete or attempt activity 9 The patient did not perform the activity before the current illness or injury 88 Not attempted due to Medical conditions or safety concerns Transfers (B, C, W/C) (FIM): 5 Scootin Sit to/from Stand: 5 Weight Bearing Weight Bearing Restriction: Non Weight Bearing Location Restriction: RT FOOT Gait Training Gait (FIM): 4 Distance (FIM): 3=150 ft Distance: 150' x 2 Gait Level of Assist: 4 Gait Persons Needed: 1 Gait Assistive Device: Crutches requires 4 standing rest breaks due to fatigue Stair Training Stairs (FIM): 2 #of Steps: 3 Stairs: Pattern: Hops Level of Assist: 4 with crutches Assessment Patient tolerated treatment well. Patient is up in chair with needs met. PT Usp Goals Brass Reclaimer Goals PT Usp Goals Time Frame: Jun 28, 2016 Transfers (B,C,W/C) (FIM): 5 Gait (FIM): 5 Distance: 150' Gait Level of Assist: 5 Gait Assistive Device: Crutches Stairs (FIM): 2 # of Steps: 4 Stairs Level Of Assist: 4 (CGA) PT Plan Treatment/Plan Treatment Plan: Continue Plan of Care Treatment Plan: Bed Mobility, Education, Functional Activity Fritz, Functional Strength, Gait, Safety, Therapeutic Exercise, Transfers Treatment Duration: Jun 28, 2016 Visits Per Week: 10-11 Minutes/Day (M-F): 15-30 Minutes/Day (Sat/Chu): 15-30 Time/GCodes Time In: 1400 Time Out: 1425 Total Billed Treatment Time: 25 Total Billed Treatment 1 visit GT 15 min FA 10 min ARDEN ZAPIEN PT Jun 22, 2016 14:46
--- NOTE | 2016-06-22 15:47 | Progress Note (SOAP) ---
Subjective Subjective/Events-last exam Patient states that pain is well controlled. Comfortable today. BM x 2 in the last 24 hrs. Tolerating PO. Date seen by provider: Jun 22, 2016 Objective Exam Last Set of Vital Signs Vital Signs Date Time Temp Pulse Resp B/P Pulse Ox O2 Delivery O2 Flow Rate FiO2 06/22/16 11:38 98 06/22/16 08:00 98.0 95 20 146/84 Room Air 06/21/16 14:24 2.00 Capillary Refill : Less Than 3 SecondsLess Than 3 Seconds I&O Intake and Output 06/22/16 00:00 Intake Total 5020 ml Output Total 4450 ml Balance 570 ml Intake Oral 840 ml IV Total 4180 ml Output Urine Total 4450 ml # Bowel Movements 1 General: Alert, Oriented X3, Cooperative, No Acute Distress Lungs: Clear to Auscultation, Normal Air Movement Heart: Regular Rate, Normal S1, Normal S2, No Murmurs Abdomen: Normal Bowel Sounds, Soft, No Tenderness, No Hepatosplenomegaly, No Masses Extremities: Other (Bandage on R foot, min swelling) Neuro: Strength at 5/5 X4 Ext, Cranial Nerves 3-12 NL Psych/Mental Status: Mental Status NL, Mood NL Results/Procedures Lab Laboratory Tests 06/21/16 16:11: Glucometer 261H 06/21/16 19:32: Glucometer 164H 06/21/16 22:06: Glucometer 256H 06/22/16 04:59: Glucometer 207H 06/22/16 09:09: Anion Gap 10, BUN/Creatinine Ratio 12, Basophils # (Auto) 0.0, Basophils (%) ( Auto) 0, Blood Urea Nitrogen 10, Calcium Level 8.7, Carbon Dioxide Level 19L, Chloride Level 107, Creatinine 0.81, Eosinophils # (Auto) 0.1, Eosinophils (%) ( Auto) 1, Estimat Glomerular Filtration Rate > 60, Glucose Level 262H, Hematocrit 36L, Hemoglobin 12.1L, Lymphocytes # (Auto) 1.3, Lymphocytes (%) ( Auto) 15, Mean Corpuscular Hemoglobin 31, Mean Corpuscular Hemoglobin Concent 34 , Mean Corpuscular Volume 90, Mean Platelet Volume 9.6, Monocytes # (Auto) 0.5, Monocytes (%) (Auto) 6, Neutrophils # (Auto) 6.9, Neutrophils (%) (Auto) 78H, Platelet Count 280, Potassium Level 3.8, Red Blood Count 3.97L, Red Cell Distribution Width 11.8, Sodium Level 136, White Blood Count 8.8 06/22/16 11:53: Glucometer 254H Microbiology 06/19/16 Blood Culture - Preliminary, Resulted No growth 06/21/16 MRSA Screen - Final, Complete MRSA not isolated 06/21/16 Gram Stain - Final, Resulted 06/21/16 Anaerobic Culture, Resulted Pending 06/21/16 Surgical Culture - Preliminary, Resulted Enterococcus Species Escherichia Coli Radiology Date of Exam:06/19/16 FOOT, RIGHT, 3 VIEW INDICATION: Blister along the medial side of the great toe for approximately 3-4 weeks. Blister has popped, now with swelling and discoloration to the toe radiating into the right toes. TECHNIQUE: 3 views of the right foot CORRELATION STUDY: None FINDINGS: There is a large amount of soft tissue gas over the region of the great toe and interposed between the first and second digits. There is fracture or destructive type change involving the of base of the distal phalanx of the great toe, extending into the interphalangeal joint. The proximal phalanx has a more normal appearance. The remaining osseous structures overall appear to be intact. Mild degenerative changes with mild osteophyte formation at the first MTP joint. Vascular calcifications are present. Prominent calcaneal spurring. IMPRESSION: 1. Soft tissue gas collections and swelling centered at the level of the great toe and interposed between the first and second digits. 2. There is a multipart fracture or perhaps destructive changes involving the base of the distal phalanx of the great toe. Given history, the possibility of osteomyelitis is not excluded. This could also be perhaps posttraumatic. Procedures Right Great toe amputation performed Assessment/Plan Assessment/Plan Admission Dx Diabetic foot ulcer Osteomyelitis Insulin Dependent DM II HTN Plan 45 yo M with known IDDM II admitted for Right foot wound Diabetic foot ulcer Right great toe s/p amputation POD #1 - Pain and wound management per surgery - Currently on Vancomycin/Zosyn D4, will transition to PO at discharge - PT to started, non weight bearing Osteomyelitis: See above Insulin Dependent DM II: Uncontrolled - Will start home insulin - A1c 10.5, will need strict blood sugar control for wound healing - Will order DM education - Discussed the need to add long acting insulin HTN: Elevated - Increased lisinopril to 20 mg daily, continue to monitor Dispo: continue admission for IV Antibiotics, plan for surgery tomorrow for delayed closure, d/c sat DVT PPX: SCDs, hold lovenox for surgery tomorrow FEN: CHO diet, NPO at midnight Diagnosis/Problems: Clinical Quality Measures DVT/VTE Risk/Contraindication: Risk Factor Score Per Nursin RFS Level Per Nursing on Admit: 4+=Very High RUBIA PARRISH MD Jun 22, 2016 15:47
[2016-06-22 16:27] VITALS: BP 134/85
[2016-06-22 20:30] VITALS: BP 131/72
[2016-06-23] VITALS: BP 147/88
[2016-06-23] MEDS: CATHETER FLUSH 10 ML SYR IV SCH ×3 (05:37→22:05)
[2016-06-23] MEDS: VANCOMYCIN 1500 MG/NS 500 ML IVPB IV SCH ×6 (05:37→22:03)
[2016-06-23] MEDS: PIPERACILLIN SODIUM/TAZOBACTAM 4.5 GM in NORMAL SALINE (BAXTER MINI) 100 ML IV SCH ×3 (05:37→22:03)
[2016-06-23] MEDS: inSUlin (REGULAR) HUMAN 1 UNIT/0.01 ML (CHARGE PER UNIT) SC SCH ×4 (05:42→22:11)
[2016-06-23] MEDS: inSUlin ASPART (NovoLOG) 1 UNIT/0.01 ML (CHARGE PER UNIT) SC SCH ×4 (05:42→19:15)
[2016-06-23 06:37] LABS: BASOPHILS # (AUTO) 0.1 10^3/uL (0.0-0.1); BASOPHILS % (AUTO) 1 % (0-10); EOSINOPHILS # (AUTO) 0.2 10^3/uL (0.0-0.3); EOSINOPHILS % (AUTO) 3 % (0-10); LYMPHOCYTES # (AUTO) 1.7 X 10^3 (1.0-4.0); LYMPHOCYTES % (AUTO) 22 % (12-44); MEAN CORPUSCULAR HEMOGLOBIN 31 PG (25-34); MEAN CORPUSCULAR HGB CONC 33 G/DL (32-36); MEAN CORPUSCULAR VOLUME 94 FL (80-99); MEAN PLATELET VOLUME 9.9 FL (7.4-10.4); MONOCYTES # (AUTO) 0.7 X 10^3 (0.0-1.0); MONOCYTES % (AUTO) 9 % (0-12); NEUTROPHILS # (AUTO) 4.7 X 10^3 (1.8-7.8); NEUTROPHILS % (AUTO) 64 % (42-75); PLATELET COUNT 272 10^3/uL (130-400); RED BLOOD COUNT 4.01 10^6/uL (4.35-5.85); WHITE BLOOD COUNT 7.4 10^3/uL (4.3-11.0)
[2016-06-23 07:05] LABS: ANION GAP 12 MMOL/L (5-14); BLOOD UREA NITROGEN 12 MG/DL (7-18); BUN/CREATININE RATIO 16; CALCIUM 8.7 MG/DL (8.5-10.1); CARBON DIOXIDE 20 MMOL/L (21-32); CHLORIDE 106 MMOL/L (98-107); CREATININE SERUM 0.77 MG/DL (0.60-1.30); GFR ESTIMATED > 60; GLUCOSE 222 MG/DL (70-105); POTASSIUM 4.1 MMOL/L (3.6-5.0); SODIUM 138 MMOL/L (135-145)
--- NOTE | 2016-06-23 07:55 | Podiatry Progress Note ---
Standard Progress Note Progress Notes/Assess & Plan Progress/Assessment & Plan Post op day #2. The patient continues to improve, no F/C/N/V. Vital Signs Date Time Temp Pulse Resp B/P Pulse Ox O2 Delivery O2 Flow Rate FiO2 06/22/16 08:00 98.0 95 20 146/84 95 Room Air 06/22/16 04:00 97.5 97 20 154/93 96 Room Air 06/22/16 00:00 98.4 100 20 138/81 97 Room Air 06/21/16 19:30 95 Room Air 06/21/16 16:00 99.2 104 20 121/77 93 Room Air 06/21/16 14:24 97.9 106 22 138/83 93 2.00 I & O 06/22/16 07:00 Intake Total 4325 ml Output Total 3750 ml Balance 575 ml The wound to the right foot has increase granular tissue. There is no necrosis of the wound or skin edges. No mal-odor with no erythema to the dorsum of the right foot. A/P: S/P amputation of the right hallux with I&D of deep abscess Sterile dressing change to the right foot with wet-to-dry dressing. Continue with IV antibiotics. Consent for reduction of bone delayed primary closure to the right foot today. He will likely go home 06-24-2016 on PO antibiotics and he is to follow up in the [facility] clinic on Jun 30 at 9am Final Diagnosis Osteomyelitis right foot with I&D DALI MIRZA DPM Jun 23, 2016 07:55
[2016-06-23 08:15] VITALS: BP 161/85
[2016-06-23] MEDS: lisINopril 20 MG (ZESTRIL) TAB PO SCH (08:36)
[2016-06-23] MEDS: ATORVASTATIN 20 MG (LIPITOR) TABLET PO SCH (08:36)
[2016-06-23] MEDS ORDERED: lisINopril 10 MG (PRINIVIL) TAB PO SCH (09:00)
--- NOTE | 2016-06-23 09:44 | Physical Therapy Progress Note ---
Therapy Progress Note Patient states he is up ad radha with crutches and feels comfortable with all mobility. Patient to dismiss to home tomorrow. PT to dismiss patient from services on this date. ARDEN ZAPIEN PT Jun 23, 2016 09:44
[2016-06-23 09:47] VITALS: BP 147/86
--- NOTE | 2016-06-23 10:58 | Progress Note (SOAP) ---
Subjective Subjective/Events-last exam Patient doing well today. States that he is alittle depressed today because he looked at his foot this AM during the bandage change. States that his pain is well controlled. He is getting stressed out about going home tomorrow. States that he has good family support. Back to OR this afternoon for delayed closure Date seen by provider: Jun 23, 2016 Objective Exam Last Set of Vital Signs Vital Signs Date Time Temp Pulse Resp B/P Pulse Ox O2 Delivery O2 Flow Rate FiO2 06/23/16 09:47 99 147/86 06/23/16 09:13 97 Room Air 06/23/16 00:00 98.6 20 06/21/16 14:24 2.00 Capillary Refill : Less Than 3 SecondsLess Than 3 Seconds I&O Intake and Output 06/23/16 00:00 Intake Total 3940 ml Output Total 3451 ml Balance 489 ml Intake Oral 2710 ml IV Total 1230 ml Output Urine Total 3450 ml Stool Total 1 ml General: Alert, Oriented X3, Cooperative, No Acute Distress Lungs: Clear to Auscultation, Normal Air Movement Heart: Regular Rate, Normal S1, Normal S2, No Murmurs Abdomen: Normal Bowel Sounds, Soft, No Tenderness, No Hepatosplenomegaly, No Masses Extremities: Other (Bandage present on R foot) Psych/Mental Status: Mental Status NL, Other (Depressed mood) Results/Procedures Lab Laboratory Tests 06/22/16 11:53: Glucometer 254H 06/22/16 21:44: Glucometer 142H 06/23/16 06:31: Anion Gap 12, BUN/Creatinine Ratio 16, Basophils # (Auto) 0.1, Basophils (%) ( Auto) 1, Blood Urea Nitrogen 12, Calcium Level 8.7, Carbon Dioxide Level 20L, Chloride Level 106, Creatinine 0.77, Eosinophils # (Auto) 0.2, Eosinophils (%) ( Auto) 3, Estimat Glomerular Filtration Rate > 60, Glucose Level 222H, Hematocrit 38L, Hemoglobin 12.4L, Lymphocytes # (Auto) 1.7, Lymphocytes (%) ( Auto) 22, Mean Corpuscular Hemoglobin 31, Mean Corpuscular Hemoglobin Concent 33 , Mean Corpuscular Volume 94, Mean Platelet Volume 9.9, Monocytes # (Auto) 0.7, Monocytes (%) (Auto) 9, Neutrophils # (Auto) 4.7, Neutrophils (%) (Auto) 64, Platelet Count 272, Potassium Level 4.1, Red Blood Count 4.01L, Red Cell Distribution Width 12.0, Sodium Level 138, White Blood Count 7.4 06/23/16 09:41: Glucometer 252H Microbiology 06/19/16 Blood Culture - Preliminary, Resulted No growth 06/21/16 MRSA Screen - Final, Complete MRSA not isolated 06/21/16 Gram Stain - Final, Resulted 06/21/16 Anaerobic Culture - Preliminary, Resulted Anaerobic Gram Negative Cipriano 06/21/16 Surgical Culture - Preliminary, Resulted Enterococcus Species Gram Negative Cipriano Radiology Date of Exam:06/19/16 FOOT, RIGHT, 3 VIEW INDICATION: Blister along the medial side of the great toe for approximately 3-4 weeks. Blister has popped, now with swelling and discoloration to the toe radiating into the right toes. TECHNIQUE: 3 views of the right foot CORRELATION STUDY: None FINDINGS: There is a large amount of soft tissue gas over the region of the great toe and interposed between the first and second digits. There is fracture or destructive type change involving the of base of the distal phalanx of the great toe, extending into the interphalangeal joint. The proximal phalanx has a more normal appearance. The remaining osseous structures overall appear to be intact. Mild degenerative changes with mild osteophyte formation at the first MTP joint. Vascular calcifications are present. Prominent calcaneal spurring. IMPRESSION: 1. Soft tissue gas collections and swelling centered at the level of the great toe and interposed between the first and second digits. 2. There is a multipart fracture or perhaps destructive changes involving the base of the distal phalanx of the great toe. Given history, the possibility of osteomyelitis is not excluded. This could also be perhaps posttraumatic. Procedures Right Great toe amputation performed Assessment/Plan Assessment/Plan Admission Dx Diabetic foot ulcer Osteomyelitis Insulin Dependent DM II HTN Plan 45 yo M with known IDDM II admitted for Right foot wound Diabetic foot ulcer Right great toe s/p amputation POD #2 - Pain and wound management per surgery - Currently on Vancomycin/Zosyn D5, will transition to PO at discharge - Continue PT with crutches, non weight bearing Osteomyelitis: See above Insulin Dependent DM II: Uncontrolled - Will start home insulin - A1c 10.5, will need strict blood sugar control for wound healing - Will order DM education - Discussed the need to add long acting insulin HTN: Elevated - Continue lisinopril to 20 mg daily, continue to monitor Dispo: OR today for closure, plan for home tomorrow morning DVT PPX: SCDs FEN: Advance to CHO diet after surgery Diagnosis/Problems: Clinical Quality Measures DVT/VTE Risk/Contraindication: Risk Factor Score Per Nursin RFS Level Per Nursing on Admit: 4+=Very High RUBIA PARRISH MD Jun 23, 2016 10:58
[2016-06-23] MEDS ORDERED: LIDOCAINE 1% INJ 20 ML (XYLOCAINE) VIAL ONE (11:08)
[2016-06-23] MEDS ORDERED: BUPIVACAINE 0.5% 30 ML (SENSORCAINE) VIAL ONE (11:08)
[2016-06-23] MEDS ORDERED: LACTATED RINGERS 0 ML IV ONE (11:10)
[2016-06-23] MEDS ORDERED: LIDOCAINE PF 2% 10 ML (XYLOCAINE) AMP ONE (11:10)
[2016-06-23] MEDS ORDERED: proPOfol 200 MG/20 ML (DIPRIVAN) VIAL IV ONE (11:10)
[2016-06-23] MEDS ORDERED: SEVOFLURANE (ULTANE) 15 ML INHAL SOLN ONE (11:10)
[2016-06-23] MEDS ORDERED: MIDAZOLAM 2 MG/2 ML (VERSED) VIAL ONE (11:11)
[2016-06-23] MEDS ORDERED: fentaNYL INJECTION 100 MCG/2 ML AMP ONE (11:11)
[2016-06-23] MEDS ORDERED: FAMOTIDINE 20MG/2ML IV (PEPCID) ONE (11:31)
[2016-06-23] MEDS: LACTATED RINGERS 1,000 ML IV SCH ×4 (11:35→22:11)
--- NOTE | 2016-06-23 11:53 | Progress Note-Pre Operative ---
Pre-Operative Progress Note H&P Reviewed The H&P was reviewed, patient examined and no changes noted. Date H&P Reviewed: Jun 21, 2016 Time H&P Reviewed: 11:58 Pre-Operative Diagnosis: History of Osteomyelitis right hallux DALI MIRZA DPTania Jun 23, 2016 11:53
[2016-06-23] MEDS ORDERED: VANCOMYCIN 1000 MG/VIAL ONE (11:57)
--- NOTE | 2016-06-23 12:57 | Progress Note-Post Operative ---
Post-Operative Progess Note Pre-Operative Diagnosis History of Osteomyelitis right hallux Post-Operative Diagnosis Same Post-Op Procedure Note Date of Procedure: Jun 23, 2016 Name of Procedure: Sharp debridement of right foot ulceration with delayed primary closure Estimated blood loss (mL): Minimal Packing: None Specimen(s) collected right 1st metatarsal head DALI MIRZA DPM Jun 23, 2016 12:57 pm
[2016-06-23] MEDS ORDERED: HYDROcodone/APAP 5 MG/325 MG (LORTAB) TAB PO PRN (13:00)
[2016-06-23 14:36] VITALS: BP 143/84
--- NOTE | 2016-06-23 15:02 | Diagnostic Imaging Report ---
Indication: Postop delayed wound closure. Comparison: 06/19/2015. Findings: Status post grade 2 amputation and partial amputation of the distal first metatarsal. There is mild ill-definition of the distal aspect of the first metatarsal stump, which is only seen on the AP projection. The remainder of the osseous structures demonstrate normal bone mineral density without cortical destruction. Impression: Status post great toe amputation. Subtle hypodensity and ill-definition of the medial margin of the first metatarsal stump on the AP view is likely projectional. However, if there is high clinical suspicion for persistent osteomyelitis, it may also have this appearance. Dictated by: Dictated on workstation # [id number]
[2016-06-23 16:15] VITALS: BP 95/66
[2016-06-23 19:55] VITALS: BP 148/82
[2016-06-23] MEDS: IBUPROFEN 600 MG (MOTRIN) TAB PO PRN (22:05)
[2016-06-24] VITALS: BP 132/76
[2016-06-24] MEDS: LACTATED RINGERS 1,000 ML IV SCH (04:16)
[2016-06-24 05:33] LABS: BASOPHILS % (AUTO) 0 % (0-10); EOSINOPHILS # (AUTO) 0.2 10^3/uL (0.0-0.3); EOSINOPHILS % (AUTO) 2 % (0-10); LYMPHOCYTES # (AUTO) 1.9 X 10^3 (1.0-4.0); LYMPHOCYTES % (AUTO) 25 % (12-44); MEAN CORPUSCULAR HEMOGLOBIN 31 PG (25-34); MEAN CORPUSCULAR HGB CONC 34 G/DL (32-36); MEAN CORPUSCULAR VOLUME 91 FL (80-99); MEAN PLATELET VOLUME 9.7 FL (7.4-10.4); MONOCYTES # (AUTO) 0.6 X 10^3 (0.0-1.0); MONOCYTES % (AUTO) 8 % (0-12); NEUTROPHILS # (AUTO) 4.9 X 10^3 (1.8-7.8); NEUTROPHILS % (AUTO) 65 % (42-75); PLATELET COUNT 288 10^3/uL (130-400); RED BLOOD COUNT 3.83 10^6/uL (4.35-5.85); RED CELL DISTRIBUTION WIDTH 11.7 % (10.0-14.5); WHITE BLOOD COUNT 7.5 10^3/uL (4.3-11.0)
[2016-06-24 05:48] LABS: ANION GAP 12 MMOL/L (5-14); BLOOD UREA NITROGEN 12 MG/DL (7-18); BUN/CREATININE RATIO 17; CALCIUM 8.6 MG/DL (8.5-10.1); CARBON DIOXIDE 19 MMOL/L (21-32); CHLORIDE 108 MMOL/L (98-107); GFR ESTIMATED > 60; GLUCOSE 159 MG/DL (70-105); POTASSIUM 4.1 MMOL/L (3.6-5.0); SODIUM 139 MMOL/L (135-145)
[2016-06-24] MEDS ORDERED: VANCOMYCIN 750 MG ADD-VANTAGE VIAL IV ONE (05:48)
[2016-06-24] MEDS ORDERED: NS IV 500 ML 500 ML ONE (05:49)
[2016-06-24] MEDS: VANCOMYCIN 1500 MG/NS 500 ML IVPB IV SCH ×2 (06:19)
[2016-06-24] MEDS: PIPERACILLIN SODIUM/TAZOBACTAM 4.5 GM in NORMAL SALINE (BAXTER MINI) 100 ML IV SCH (06:19)
[2016-06-24] MEDS: CATHETER FLUSH 10 ML SYR IV SCH (06:26)
[2016-06-24 08:00] VITALS: BP 145/79
[2016-06-24] MEDS: lisINopril 20 MG (ZESTRIL) TAB PO SCH (09:06)
[2016-06-24] MEDS: ATORVASTATIN 20 MG (LIPITOR) TABLET PO SCH (09:06)
[2016-06-24] MEDS: inSUlin (REGULAR) HUMAN 1 UNIT/0.01 ML (CHARGE PER UNIT) SC SCH (09:07)
--- NOTE | 2016-06-24 09:13 | Anesthesia-General Post-Op ---
General Patient Condition Mental Status/LOC: Same as Preop Cardiovascular: Satisfactory Nausea/Vomiting: Absent Respiratory: Satisfactory Pain: Controlled Complications: Absent Post Op Complications Complications None Follow Up Care/Instructions Patient Instructions None needed. Anesthesia/Patient Condition Patient Condition Patient is doing well, no complaints, stable vital signs, no apparent adverse anesthesia problems. No complications reported per nursing. LALI DENNIS CRNA Jun 24, 2016 09:13
[2016-06-24] MEDS: inSUlin ASPART (NovoLOG) 1 UNIT/0.01 ML (CHARGE PER UNIT) SC SCH (09:21)
[2016-06-24] MEDS ORDERED: AMOX-358 PO (09:42)
[2016-06-24] MEDS ORDERED: CIPR-225 PO (09:42)
[2016-06-24] MEDS ORDERED: LISI-552 PO (09:42)
--- NOTE | 2016-06-24 09:45 | Discharge Instructions ---
Discharge [facility] Discharge Medications New, Converted or Re-Newed RX: Transmitted to Pharmacy ([facility]) New Medications: Amoxicillin/Potassium Clav (Augmentin 875-125 Tablet) 1 Each Tablet 1 EACH PO BID #20 TAB Ciprofloxacin HCl (Cipro) 500 Mg Tablet 500 MG PO BID #20 TAB Lisinopril (Lisinopril) 20 Mg Tablet 20 MG PO DAILY@0900 #30 TAB Continued Medications: Atorvastatin Calcium (Atorvastatin Calcium) 20 Mg Tablet 20 MG PO DAILY TAB Ibuprofen (Advil) 200 Mg Tablet 400 MG PO TID TAKES 2 (200MG) TABLETS PRN PAIN TAB Insulin Glargine,Hum.rec.anlog (Lantus) 100 Unit/1 Ml Vial 20 UNITS SC DAILY PRN BS EA Insulin Lispro (Humalog Kwikpen) 200 Unit/1 Ml Insuln.pen 43 UNITS SC AC EA Metformin HCl (Metformin HCl ER) 750 Mg Tab.er.24h 750 MG PO DAILY TAB Multivitamin (Daily Multiple Vitamin) 1 Each Tablet 1 TAB PO DAILY TAB Discontinued Medications: Lisinopril (Lisinopril) 10 Mg Tablet 10 MG PO DAILY TAB Patient Instructions Goal/Follow Up Appt: You have a follow up appt with Dr Barton at [facility] on Jul 05@1020 AM Make sure to keep your appts with Dr Garcia Patient Instructions: - Wound care per Dr Garcia - Non Weight bearing Status Return to The Hospital For: Fever Unable to tolerate antibioitics Chest pain Shortness of breath Activity & Diet Discharge Diet: ADA Diet Activity as Tolerated: Yes Orders-Post D/C & Referrals Pneu Vac Indicated: Yes Copy Copies To 1: RUBIA BARTON MD, HOLLY R MD Jun 24, 2016 9:45 am
--- NOTE | 2016-06-24 09:46 | Discharge Summary ---
Diagnosis/Chief Complaint Date of Admission Jun 19, 2016 at 10:40 pm Date of Discharge Jun 24, 2016 Admission Diagnosis Admission Diagnosis Diabetic foot ulcer Osteomyelitis Insulin Dependent DM II HTN Discharge Diagnosis See Above Chief Complaint/HPI Chief Complaint/HPI 45 yo M with IDDM that noticed a blister on his R foot a couple weeks ago. Seen in clinic and started on clindamycin. Yesterday called the clinic with increased pain and drainage and was started on Bactrim. Patient then went to ER because the pain increased. He has had similar wound on his other foot. Other then the pain he has been feeling well. No recent trauma to food. Discharge Summary-Simple/Stand Procedures Right Great toe amputation performed Consultations Podiatry Dr Garcia Discharge Physical Examination Allergies: Coded Allergies: canagliflozin (Unverified Adverse Reaction, Unknown, 06/19/16) Vitals & I&Os Vital Sign - Last 12Hours Date Time Temp Pulse Resp B/P Pulse Ox O2 Delivery O2 Flow Rate FiO2 06/24/16 08:00 98.2 86 16 145/79 98 Room Air 06/21/16 14:24 2.00 Intake and Output 06/24/16 00:00 Intake Total 2860 ml Output Total 3050 ml Balance -190 ml General Appearance: Alert, Oriented X3, Cooperative, No Acute Distress HEENT: Atraumatic, PERRLA, EOMI, Mucous Memb Moist/[place] Respiratory: Clear to Auscultation, Normal Air Movement Cardiovascular: Regular Rate, Normal S1, Normal S2, No Murmurs Abdominal: Normal Bowel Sounds, Soft, No Tenderness, No Masses Extremities: Other (R Bandage, mild edema on RLE) Neuro: Normal Speech, Strength at 5/5 X4 Ext, Cranial Nerves 3-12 NL Psych/Mental Status: Mental Status NL, Other (Depressed Mood) Hospital Course See final discharge diagnosis. Labs A1c: 12.0 Radiology Reviewed Date of Exam:06/19/16 FOOT, RIGHT, 3 VIEW INDICATION: Blister along the medial side of the great toe for approximately 3-4 weeks. Blister has popped, now with swelling and discoloration to the toe radiating into the right toes. TECHNIQUE: 3 views of the right foot CORRELATION STUDY: None FINDINGS: There is a large amount of soft tissue gas over the region of the great toe and interposed between the first and second digits. There is fracture or destructive type change involving the of base of the distal phalanx of the great toe, extending into the interphalangeal joint. The proximal phalanx has a more normal appearance. The remaining osseous structures overall appear to be intact. Mild degenerative changes with mild osteophyte formation at the first MTP joint. Vascular calcifications are present. Prominent calcaneal spurring. IMPRESSION: 1. Soft tissue gas collections and swelling centered at the level of the great toe and interposed between the first and second digits. 2. There is a multipart fracture or perhaps destructive changes involving the base of the distal phalanx of the great toe. Given history, the possibility of osteomyelitis is not excluded. This could also be perhaps posttraumatic. Discussion & Recommendations 45 yo M with worsening of diabetic foot wound admitted with signs of osteomyelitis. Podiatry was consulted and recommended amputation of R great toe. Patient underwent delay primary closure of wound. Has close follow up with Dr Garcia for wound management. Diabetes is uncontrolled with A1c 12. Pain was well controlled at time of discharge. Patient is non weight bearing at discharge until released to do so per Dr Garcia. f/u needs - Maximization of DM management - appt with [facility] for DM education Discharge Condition at discharge stable Instructions to patient/family Please see electonic discharge instructions given to patient. Discharge Medications Reviewed and agree with Discharge Medication list on patient's Discharge Instruction sheet Clinical Quality Measures DVT/VTE Risk/Contraindication: Risk Factor Score Per Nursin RFS Level Per Nursing on Admit: 4+=Very High Copy Copies To 1: RUBIA PARRISH MD, HOLLY R MD Jun 24, 2016 09:46
[2016-06-24 11:40] VITALS: BP 145/79
--- NOTE | 2016-06-26 07:16 | OPERATIVE REPORT ---
PROCEDURE PHYSICIAN: YELITZA MIRZA DATE OF PROCEDURE: 06/23/2016 SURGEON: Yelitza Mirza DPM. PREOPERATIVE DIAGNOSIS: history of osteomyelitis, right hallux with I&D. POSTOPERATIVE DIAGNOSIS: History of osteomyelitis, right hallux with I&D. PROCEDURE: Revision of amputation, right first ray with delayed primary closure, right foot. WOUND CLASS: Contaminated. ANESTHESIA: General. HEMOSTASIS: Pneumatic thigh tourniquet at 300 mmHg. INDICATION: This 45-year-old male presents with an ulceration to the right foot with previous osteomyelitis to the hallux as well as deep abscess. The wound has improved over the last couple of days and I believe it is in the patient's best interest to have a delayed primary closure at this time. The patient is agreeable to this after risk and complications were discussed at length. No guarantees were extended to the patient and he is willing to proceed. PROCEDURE: The patient was brought back to the operative table, placed in a secure, supine position. Appropriate timeout was performed. A pneumatic thigh tourniquet was placed on the right lower extremity over several layers of padding. The right foot was then elevated and allowed to exsanguinate after which the tourniquet was inflated to 300 mmHg. Attention was then directed to the right first metatarsal where utilizing a power sagittal saw, the head of the first metatarsal was resected at an angle from distal dorsal to plantar proximal and there was removal of the sesamoidal apparatus as well. The flexor tendon was also identified and cut as proximally as possible. There is no purulent tissue. There is increasing granular tissue since his previous surgery couple days ago and minimal necrosis to the distal aspect of the previous surgical site adjacent to the second digit, which was resected sharply. Sharp debridement was performed to the first intermetatarsal area, as well as to the wound base after which it was power irrigated with 1 liter of normal saline with 1 gram of vancomycin. Once the wound was irrigated, a swab culture was taken. The wound was closed with 4-0 and 3-0 Prolene in a simple interrupted type stitch. The wound came together without significant tension to the proximal aspect of the incision but there was some tension noted to the distal aspect of closure just adjacent to the second digit. Postoperative injection consisted of 8 mL of 0.5% Marcaine followed by dressings of Betadine soaked Adaptic, sterile 4 x 4, sterile Kerlix, all secured with an Joey wrap. The patient is to be readmitted to the 4th floor for IV antibiotics and will likely be discharged tomorrow with p.o. antibiotics. He is to be absolutely nonweightbearing on the right foot with crutches. He is to follow-up in my office in 4 days period of time or sooner if necessary. Job ID: [id number] Dictated Date: 06/23/2016 13:11:59 Tractor Distributor Date: 06/26/2016 07:10:56 / jaki
== END 2016-06-24 11:40 | disposition home or self-care (01) | DRG 617 ==
LOC: UNDOADMOB → INTOOBSV → EDUNIT# 17:59 → ER 18:03 → OBSVTOIN 21:50 → 4TH 21:50 → UNDOADMOB 21:50 → 4TH 22:40 → OBSVTOIN 22:40 → INTOOBSV 22:40 → UNDOADMIN 22:40
PROVIDERS: ADMIT Family Medicine; ATTEND Family Medicine
PROC: 0Y6P0Z0 Detachment at Right 1st Toe, Complete, Open Approach (ICD-10-PCS; principal; 2016-06-21 11:46)
PROC: 0Y6M0Z9 Detachment at Right Foot, Partial 1st Ray, Open Approach (ICD-10-PCS; 2016-06-23)
DX: E11.621 Type 2 diabetes mellitus with foot ulcer (principal); L97.519 Non-pressure chronic ulcer of other part of right foot with unspecified severity; E11.69 Type 2 diabetes mellitus with other specified complication; M86.171 Other acute osteomyelitis, right ankle and foot; E11.65 Type 2 diabetes mellitus with hyperglycemia; I10 Essential (primary) hypertension; Z79.4 Long term (current) use of insulin
CPT/HCPCS: 36415; 73620; 73630; 80048; 80053; 80202; 81000; 82962; 83036; 83605; 85007; 85025; 85027; 85652; 86141; 87040; 87070; 87075; 87077; 87081; 87186; 87205; 94664; 94760; 96361; 96374

== ENCOUNTER → 2016-07-17 | Outpatient (CLI) | payer OTHER ==
[~2016-07-17] MED LIST: ACET-93 PO; AMOX-358 PO; ATOR20TA66 PO; CIPR-225 PO; CLIN300C11 PO; CLOP75TA28 PO; IBUP-30 PO; INSU100V6 SC; INSU200I SQ; LISI-552 PO; LISI10TA2 PO; METF1000 PO; METF750T2 PO; MULT-35 PO; SULF1TAB35 PO
--- OUTSIDE RECORDS SUMMARY | 2016-07-17 12:17 | XMS REPORT | Continuity of Care Document ---
Author Author [facility] Organization [facility] Address Unknown Phone Unavailable Care Team Providers Care Discount Clerk Name Role Phone JANUARY MCDONALD MD PCP [...] Converted or Re-Newed RX: Transmitted to Pharmacy ([facility]) Goal/Follow Up Appt: You have a follow up appt with Dr Parrish at [facility] on Jul 05@1020 AM Make sure to [...] follow up appt with Dr Parrish at [facility] on Jul 05@1020AMMake sure to keep your [...] Type Severity Reaction Status Last Updated deepak ([id number]) Adverse Reaction Unknown Active 06/19/16 Immunizations Name Given Type FLU TRIvalent 5 years - Adult 06/20/16 Administered Vital Signs Acute Vital Signs Vital Response Date/Time Temperature (Fahrenheit) 98.2 degrees F (97.6 - 99.5) 06/24/2016 11:40am Temperature (Calculated Celsius) 36.20085 degrees C (36.4 - 37.5) 06/24/2016 8:00am [...] 2.00 inches 06/19/2016 10:45pm Height (Calculated Centimeters) 187.219702 cm 06/19/2016 10:45pm Weight (Pounds) 271 pounds 06/19/2016 10:45pm Weight (Ounces) 1.0 oz 06/19/2016 10:45pm Weight (Calculated Grams) 261711.88 gm 06/19/2016 10:45pm Weight (Calculated Kilograms) 122.695307 kilograms 06/19/2016 10:45pm Calculated BMI 34.8 06/19/2016 [...] 5-9 06/19/2016 9:00pm 06/19/2016 9:14pm Urine Specific [place] 1.015 * 1.016-1.022 06/19/2016 9:00pm 2016 9:14pm [...] 06/19/2016 10:10pm 06/23/2016 7:32am STAPH, COAG NEG (POULTRY KILLER) 06/19/2016 10:10pm 06/23/2016 7:32am MRSA Screen Nasal [...] Discharge/Depart Date Attending Provider Admitted Inpatient [facility] 06/19/16 10:40pm RUBIA PARRISH MD Recent Diagnosis 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
--- NOTE | 2016-07-17 13:45 | Diagnostic Imaging Report ---
INDICATION: Nonhealing ulcer of the right foot. EXAMINATION: Three views of the right foot were obtained. FINDINGS: There are postop changes from amputation of the right toe. There is demineralization of the head of the first metatarsal, suspicious for osteomyelitis. IMPRESSION: Demineralization of the head of the first metatarsal, suspicious for osteomyelitis. Dictated by: Dictated on workstation # [id number]
== END ==
LOC: RAD 12:13
PROVIDERS: ATTEND Surgery
DX: E11.621 Type 2 diabetes mellitus with foot ulcer (principal); E11.52 Type 2 diabetes mellitus with diabetic peripheral angiopathy with gangrene; L97.513 Non-pressure chronic ulcer of other part of right foot with necrosis of muscle; I70.235 Atherosclerosis of native arteries of right leg with ulceration of other part of foot; T87.81 Dehiscence of amputation stump; Z89.411 Acquired absence of right great toe
CPT/HCPCS: 73630

== ENCOUNTER → 2016-07-19 | Outpatient (CLI) | payer OTHER ==
--- OUTSIDE RECORDS SUMMARY | 2016-07-19 16:07 | XMS REPORT | Continuity of Care Document ---
Author Author [facility] Organization [facility] Address Unknown Phone Unavailable Care Team Providers Care Parts Cataloguer Name Role Phone JANUARY MCDONALD MD PCP [...] 06/19/2016 11:00pm Recent Hopitalizations N 10/2015 DKA (DLEEON) 06/19/2016 11:00pm Query Response Start Date Stop Date Smoking Status Never a Smoker Hospital Discharge Instructions Patient Instructions Physician Instructions New, Converted or Re-Newed RX: Transmitted to Pharmacy ([email or web address]) Goal/Follow Up Appt: You have a follow up appt with Dr Parrish at [facility] on Jul 05@1020 AM Make sure [...] follow up appt with Dr Parrish at [facility] on Jul 05@1020AMMake sure to keep [...] Type Severity Reaction Status Last Updated deepak ([id number]) Adverse Reaction Unknown Active 06/19/16 Immunizations Name Given Type FLU TRIvalent 5 years - Adult 06/20/16 Administered Vital Signs Acute Vital Signs Vital Response Date/Time Temperature (Fahrenheit) 98.2 degrees F (97.6 - 99.5) 06/24/2016 11:40am Temperature (Calculated Celsius) 36.14723 degrees C (36.4 - 37.5) 06/24/2016 8:00am [...] 2.00 inches 06/19/2016 10:45pm Height (Calculated Centimeters) 187.610269 cm 06/19/2016 10:45pm Weight (Pounds) 271 pounds 06/19/2016 10:45pm Weight (Ounces) 1.0 oz 06/19/2016 10:45pm Weight (Calculated Grams) 358443.88 gm 06/19/2016 10:45pm Weight (Calculated Kilograms) 122.099204 kilograms 06/19/2016 10:45pm Calculated BMI 34.8 06/19/2016 [...] 5-9 06/19/2016 9:00pm 06/19/2016 9:14pm Urine Specific [place] 1.015 * 1.016-1.022 06/19/2016 9:00pm 2016 9:14pm [...] 06/19/2016 10:10pm 06/23/2016 7:32am STAPH, COAG NEG (DISPLAY MAKER) 06/19/2016 10:10pm 06/23/2016 7:32am MRSA Screen Nasal [...] Discharge/Depart Date Attending Provider Admitted Inpatient [facility] 06/19/16 10:40pm RUBIA PARRISH MD Recent Diagnosis 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
--- NOTE | 2016-07-19 16:53 | Diagnostic Imaging Report ---
CLINICAL INDICATION: Patient with no chest complaints. Patient has diabetic foot wound and osteomyelitis. EXAM: Chest x-ray PA and lateral views. COMPARISONS: Chest x-ray dated 03/04/2008. FINDINGS: Lungs/pleura: Lungs are clear. There is no pneumothorax. There is no pleural effusion. Mediastinum: Unremarkable. Pulmonary vasculature: Unremarkable. Heart: Unremarkable. Bones/extrathoracic soft tissue: There are mildly hypertrophic degenerative osteophytes scattered throughout the thoracic spine. Chronic compression deformity versus physiological wedging involving a lower thoracic vertebrae. IMPRESSION: There is no radiographic evidence of acute cardiopulmonary process. Dictated by: Dictated on workstation # [id number]
== END ==
LOC: RAD 16:02
PROVIDERS: ATTEND Surgery
DX: E11.621 Type 2 diabetes mellitus with foot ulcer (principal); E11.52 Type 2 diabetes mellitus with diabetic peripheral angiopathy with gangrene; L97.513 Non-pressure chronic ulcer of other part of right foot with necrosis of muscle; I70.235 Atherosclerosis of native arteries of right leg with ulceration of other part of foot; Z89.411 Acquired absence of right great toe; T87.81 Dehiscence of amputation stump
CPT/HCPCS: 71020

== ENCOUNTER → 2016-07-21 | Outpatient (CLI) | payer OTHER ==
--- OUTSIDE RECORDS SUMMARY | 2016-07-21 08:38 | XMS REPORT | Continuity of Care Document ---
Author Author [facility] Organization [facility] Address Unknown Phone Unavailable Care Team Providers Care Hitting Coach Name Role Phone JANUARY MCDONALD MD PCP [...] Converted or Re-Newed RX: Transmitted to Pharmacy ([email or web address]) Goal/Follow Up Appt: You have a follow up appt with Dr Parrish at [facility] on Jul 05@1020 AM Make sure to [...] follow up appt with Dr Parrish at [facility] on Jul 05@1020AMMake sure to keep your [...] Type Severity Reaction Status Last Updated deepak ([id number]) Adverse Reaction Unknown Active 06/19/16 Immunizations Name Given Type FLU TRIvalent 5 years - Adult 06/20/16 Administered Vital Signs Acute Vital Signs Vital Response Date/Time Temperature (Fahrenheit) 98.2 degrees F (97.6 - 99.5) 06/24/2016 11:40am Temperature (Calculated Celsius) 36.68068 degrees C (36.4 - 37.5) 06/24/2016 8:00am [...] 2.00 inches 06/19/2016 10:45pm Height (Calculated Centimeters) 187.701820 cm 06/19/2016 10:45pm Weight (Pounds) 271 pounds 06/19/2016 10:45pm Weight (Ounces) 1.0 oz 06/19/2016 10:45pm Weight (Calculated Grams) 793588.88 gm 06/19/2016 10:45pm Weight (Calculated Kilograms) 122.557428 kilograms 06/19/2016 10:45pm Calculated BMI 34.8 06/19/2016 [...] 5-9 06/19/2016 9:00pm 06/19/2016 9:14pm Urine Specific [place] 1.015 * 1.016-1.022 06/19/2016 9:00pm 2016 9:14pm [...] 06/19/2016 10:10pm 06/23/2016 7:32am STAPH, COAG NEG (BLOW TORCH OPERATOR) 06/19/2016 10:10pm 06/23/2016 7:32am MRSA Screen Nasal [...] Discharge/Depart Date Attending Provider Admitted Inpatient [facility] 06/19/16 10:40pm RUBIA PARRISH MD Recent Diagnosis 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
== END ==
LOC: CARD 08:35
PROVIDERS: ATTEND Surgery
DX: E11.621 Type 2 diabetes mellitus with foot ulcer (principal); E11.52 Type 2 diabetes mellitus with diabetic peripheral angiopathy with gangrene; L97.513 Non-pressure chronic ulcer of other part of right foot with necrosis of muscle; I70.235 Atherosclerosis of native arteries of right leg with ulceration of other part of foot; T87.81 Dehiscence of amputation stump; Z89.411 Acquired absence of right great toe
CPT/HCPCS: 93005

== ENCOUNTER 2016-07-24 12:34 | Day surgery (SDC) | payer OTHER ==
[2016-07-24] VITALS (12 sets, daily range): BP systolic 105–143; BP diastolic 75–96
[~2016-07-24] VITALS: Ht 188 cm; Wt 122.7 kg
[~2016-07-24 12:34] MED LIST changes: -ACET-93 PO; -CLOP75TA28 PO; -METF1000 PO
--- OUTSIDE RECORDS SUMMARY | 2016-07-24 12:38 | XMS REPORT | Continuity of Care Document ---
Author Author [facility] Organization [facility] Address Unknown Phone Unavailable Care Team Providers Care Copy Worker Name Role Phone JANUARY MCDONALD MD PCP [...] Converted or Re-Newed RX: Transmitted to Pharmacy ([email or web address]) Goal/Follow Up Appt: You have a follow up appt with Dr Parrish at [facility] on Jul 05@1020 AM Make sure [...] follow up appt with Dr Parrish at [facility] on Jul 05@1020AMMake sure to keep [...] Type Severity Reaction Status Last Updated deepak ([id number]) Adverse Reaction Unknown Active 06/19/16 Immunizations Name Given Type FLU TRIvalent 5 years - Adult 06/20/16 Administered Vital Signs Acute Vital Signs Vital Response Date/Time Temperature (Fahrenheit) 98.2 degrees F (97.6 - 99.5) 06/24/2016 11:40am Temperature (Calculated Celsius) 36.58948 degrees C (36.4 - 37.5) 06/24/2016 8:00am [...] 2.00 inches 06/19/2016 10:45pm Height (Calculated Centimeters) 187.453130 cm 06/19/2016 10:45pm Weight (Pounds) 271 pounds 06/19/2016 10:45pm Weight (Ounces) 1.0 oz 06/19/2016 10:45pm Weight (Calculated Grams) 789010.88 gm 06/19/2016 10:45pm Weight (Calculated Kilograms) 122.684672 kilograms 06/19/2016 10:45pm Calculated BMI 34.8 06/19/2016 [...] 5-9 06/19/2016 9:00pm 06/19/2016 9:14pm Urine Specific [place] 1.015 * 1.016-1.022 06/19/2016 9:00pm 2016 9:14pm [...] 06/19/2016 10:10pm 06/23/2016 7:32am STAPH, COAG NEG (SANDER OPERATOR) 06/19/2016 10:10pm 06/23/2016 7:32am MRSA Screen [...] Discharge/Depart Date Attending Provider Admitted Inpatient 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
--- OUTSIDE RECORDS SUMMARY | 2016-07-24 12:39 | XMS REPORT | Continuity of Care Document ---
Author Author [facility] Organization [facility] Address Unknown Phone Unavailable Care Team Providers Care Electrocardiograph Repairer Name Role Phone JANUARY MCDONALD MD PCP [...] Converted or Re-Newed RX: Transmitted to [facility]acy ([email or web address]) Goal/Follow Up Appt: You have a follow up appt with Dr Parrish at [facility] on Jul 05@1020 AM Make [...] follow up appt with Dr Parrish at [facility] on Jul 05@1020AMMake sure to [...] Type Severity Reaction Status Last Updated deepak ([id number]) Adverse Reaction Unknown Active 06/19/16 Immunizations Name Given Type FLU TRIvalent 5 years - Adult 06/20/16 Administered Vital Signs Acute Vital Signs Vital Response Date/Time Temperature (Fahrenheit) 98.2 degrees F (97.6 - 99.5) 06/24/2016 11:40am Temperature (Calculated Celsius) 36.54580 degrees C (36.4 - 37.5) 06/24/2016 8:00am [...] 2.00 inches 06/19/2016 10:45pm Height (Calculated Centimeters) 187.193138 cm 06/19/2016 10:45pm Weight (Pounds) 271 pounds 06/19/2016 10:45pm Weight (Ounces) 1.0 oz 06/19/2016 10:45pm Weight (Calculated Grams) 137262.88 gm 06/19/2016 10:45pm Weight (Calculated Kilograms) 122.200462 kilograms 06/19/2016 10:45pm Calculated BMI 34.8 06/19/2016 [...] 5-9 06/19/2016 9:00pm 06/19/2016 9:14pm Urine Specific [place] 1.015 * 1.016-1.022 06/19/2016 9:00pm 2016 9:14pm [...] 06/19/2016 10:10pm 06/23/2016 7:32am STAPH, COAG NEG ([employer]) 06/19/2016 10:10pm 06/23/2016 7:32am MRSA Screen Nasal [...] Discharge/Depart Date Attending Provider Admitted Inpatient [facility] 06/19/16 10:40pm RUBIA PARRISH MD Recent Diagnosis 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
[2016-07-24] MEDS ORDERED: HEParin (CATH LAB) 2,000 ML IV ONE (12:48)
[2016-07-24] MEDS ORDERED: NS IV 1000 ML 1,000 ML ONE (12:48)
[2016-07-24] MEDS ORDERED: LIDOCAINE 1% INJ 20 ML (XYLOCAINE) VIAL ONE (12:48)
[2016-07-24] MEDS ORDERED: NS IV 1000 ML 1,000 ML IV SCH (12:52)
[2016-07-24 13:22] LABS: MEAN PLATELET VOLUME 11.2 FL (7.4-10.4); RED BLOOD COUNT 4.85 10^6/uL (4.35-5.85); RED CELL DISTRIBUTION WIDTH 12.7 % (10.0-14.5); WHITE BLOOD COUNT 4.2 10^3/uL (4.3-11.0)
[2016-07-24 13:37] LABS: PROTHROMBIN TIME PATIENT 12.6 SEC (12.2-14.7)
[2016-07-24 13:42] LABS: ALANINE AMINOTRANSFERASE 24 U/L (0-55); ALBUMIN 4.2 G/DL (3.2-4.5); ANION GAP 9 MMOL/L (5-14); ASPARTATE AMINO TRANSFERASE 18 U/L (5-34); BILIRUBIN,TOTAL 1.6 MG/DL (0.1-1.0); BLOOD UREA NITROGEN 13 MG/DL (7-18); BUN/CREATININE RATIO 15; CARBON DIOXIDE 23 MMOL/L (21-32); CHLORIDE 105 MMOL/L (98-107); CREATININE SERUM 0.84 MG/DL (0.60-1.30); GFR ESTIMATED > 60; GLUCOSE 259 MG/DL (70-105); POTASSIUM 4.1 MMOL/L (3.6-5.0); SODIUM 137 MMOL/L (135-145); TOTAL PROTEIN 7.1 G/DL (6.4-8.2)
[2016-07-24] MEDS ORDERED: METF1000 PO (13:42)
[2016-07-24] MEDS ORDERED: ACET-93 PO (13:42)
[2016-07-24] MEDS ORDERED: LISI-552 PO (13:42)
[2016-07-24] MEDS ORDERED: CLOP75TA28 PO (13:42)
[2016-07-24] MEDS ORDERED: FLU TRIvalent (5 YOA+) 2016-17 (AFLURIA) 0.5 ML IM ONE (14:00)
[2016-07-24] MEDS ORDERED: MIDAZOLAM 5 MG/5 ML (VERSED) VIAL ONE ×2 (14:19→15:35)
[2016-07-24] MEDS ORDERED: fentaNYL INJECTION 100 MCG/2 ML AMP ONE ×2 (14:19→15:35)
[2016-07-24] MEDS ORDERED: HEParin 1000 UNIT/ML (10ML VIAL) FOR BOLUS ONE (15:35)
[2016-07-24] MEDS ORDERED: diphenhydrAMINE 50 MG/ML INJ (BENADRYL) ONE (15:55)
[2016-07-24] MEDS ORDERED: NS IV 1000 ML 0 ML ONE (16:29)
--- NOTE | 2016-07-24 17:56 | Cardiac Procedure Note-CS/ASA ---
Pre-Procedure Note Pre-Op Procedure Note H&P Reviewed The H&P was reviewed, patient examined and no changes noted. Date H&P Reviewed: Jul 24, 2016 Time H&P Reviewed: 15:00 Conscious Sedation Pre-Proced Time Reviewed: 15:00 ASA Class: 3 Airway Mallampati Classification: ([place] appropriate class) I. II. III, IV Lungs Heart ASA score ASA 1: a normal healthy patient ASA 2: a patient with a mild systemic disease (mid diabetes, controlled hypertension, obesity ASA 3: a patient with a severe systemic disease that limits activity (angina , COPD, prior Myocardial infarction) ASA 4: a patient with an incapacitating disease that is a constant threat to life (CHF, renal failure) ASA 5: a moribund patient not expected to survive 24 hrs. (ruptured aneurysm) ASA 6: a declared brain patient whose organs are being harvested. For emergent operations, add the letter E after the classification Grade 1 Sedation Plan: Analgesia, Amnesia, Plan communicated to team members, Discussed options with patient/fam, Discussed risks with patient/fam Note The patient is an appropriate candidate to undergo the planned procedure, sedation, and anesthesia. The patient immediately re-assessed prior to indication. Tania BANUELOS MD Jul 24, 2016 5:55 pm
--- NOTE | 2016-07-24 17:58 | Progress Note-Post Operative ---
Post-Operative Progess Note Pre-Operative Diagnosis Right lower extremity Critical limb ischemia Post-Operative Diagnosis Successful angioplasty to the right AT, TP trunk, Deep peroneal artery Post-Op Procedure Note Date of Procedure: Jul 24, 2016 Name of Procedure: Peripheral angiography and angioplasty Procedure Note/Findings Severe right AT, PT, Tibioperoneal trunk and deep peroneal stenosis. Right AT, TP trunk and DP artery treated successfully with balloon angioplasty. Anesthesia Type local anesthesia, conscious sedation. Estimated blood loss (mL): 20 cc Packing: none Specimen(s) collected none Tania BANUELOS MD Jul 24, 2016 5:58 pm
[2016-07-24] MEDS ORDERED: PATIENT MAY USE OWN MEDS, ALL PO SCH (18:00)
--- NOTE | 2016-07-24 18:00 | Discharge Inst-Post CATH ---
Discharge Inst-CATH Post Cardiac Cath D/C Inst Follow Up/Plan Dr Cagle. Dr Alcala in three-four weeks CARDIAC CATH DISCHARGE INSTRUCTIONS *Hold Metformin for 48 hours post heart cath. ACTIVITY * Go Home directly and rest. * Limit activity of the leg (or wrist if it was used) for 7 days including aerobics, swimming, jogging, bicycling, etc. * Restrict stair-climbing for 7 days if possible, if not, climb up with your non -cath leg, then bring together on the same step. * Avoid lifting, pushing, pulling or excessive movement of the affected extremity for 7 days. * Customary sexual activity may be resumed after 2 days-use caution not to use a position that strains or causes pain to the affected extremity. * No driving for 24 hours. * NO SMOKING. * Avoid straining for bowel movements for 7 days. * Gentle walking on level ground is allowed. * Returning to work will depend on the type of procedure and the results. Your doctor will discuss this with you. CALL YOUR DOCTOR FOR ANY OF THE FOLLOWING: *If bleeding from the puncture site occurs- Apply gentle pressure to site with clean cloth and call your doctor or EMS. * If a knot or lump forms under the skin, increases in size, or causes pain. * If bruising appears to be worsening or moving further down your leg instead of disappearing. * Temperature above 101 F. CARE OF YOUR GROIN INCISION; * Bruising or purple discoloration of the skin near the puncture site is common. * You may shower only, no bathtub bathing for 5 days. Be careful to avoid slipping as your leg may feel stiff. * If a closure device was used on your femoral artery, please see the attached guide regarding care of the device and your leg. * REMOVE the dressing from your groin the next day after your procedure in the shower. CARE OF YOUR WRIST INCISION; * Bruising or purple discoloration of the skin near the puncture site is common. * You may shower. * DO NOT submerge wrist. * Remove dressing in 24 hours. Tania ALCALA MD Jul 24, 2016 6:00 pm
--- NOTE | 2016-07-24 18:04 | Cardiology Discharge Summary ---
Diagnosis/Chief Complaint Date of Admission 07/24/2016 Date of Discharge 07/25/2016 Admission Diagnosis right lower extremity critical limb ischemia Final/Discharge Diagnosis successful balloon angioplasty to the right anterior tibial, tibial peroneal trunk, deep peroneal artery. Chief Complaint/HPI Chief Complaint/HPI critical limb ischemia right lower extremity. Amputated right big toe. Nonhealing ulcer. Discharge Summary Procedures peripheral angiogram and angioplasty Discharge Physical Examination stable Hospital Course stable Pending Labs Laboratory Tests 07/24/16 13:10: Activated Partial Thromboplast Time 24, Alanine Aminotransferase (ALT/SGPT) 24, Albumin 4.2, Alkaline Phosphatase 71, Anion Gap 9, Aspartate Amino Transf (AST/ SGOT) 18, BUN/Creatinine Ratio 15, Blood Urea Nitrogen 13, Calcium Level 9.0, Carbon Dioxide Level 23, Chloride Level 105, Creatinine 0.84, Estimat Glomerular Filtration Rate > 60, Glucose Level 259, Hematocrit 43, Hemoglobin 14.9, INR Comment 1.0, Mean Corpuscular Hemoglobin 31, Mean Corpuscular Hemoglobin Concent 35, Mean Corpuscular Volume 88, Mean Platelet Volume 11.2, Platelet Count 138, Potassium Level 4.1, Prothrombin Time 12.6, Red Blood Count 4.85, Red Cell Distribution Width 12.7, Sodium Level 137, Total Bilirubin 1.6, Total Protein 7.1, White Blood Count 4.2 Discussion & Recommendations Discussion follow-up with Dr. Cagle and Dr. Alcala. Follow up appt.: Dr. Benavidez, Dr. Alcala Dicharge Diet: Cardiac Diet Activity as Tolerated: Yes Home Medications Reviewed patient Home Medication Reconciliation Form Discharge Home Medications: Reviewed and agree with Discharge Medication list on patient's Discharge Instruction sheet Condition at discharge stable Instructions to patient/family Dr Cagle. Dr Alcala in three-four weeks Tania ALCALA MD Jul 24, 2016 6:04 pm
[2016-07-24] MEDS ORDERED: ACETAMINOPHEN 500 MG TAB (TYLENOL) PO PRN (18:45)
[2016-07-24] MEDS: NS IV 1000 ML 1,000 ML IV SCH (18:50)
[2016-07-24] MEDS ORDERED: inSUlin ASPART (NovoLOG) 1 UNIT/0.01 ML (CHARGE PER UNIT) ONE (19:51)
[2016-07-24] MEDS: inSUlin ASPART (NovoLOG) 1 UNIT/0.01 ML (CHARGE PER UNIT) SC SCH (19:59)
[2016-07-25] VITALS: BP 132/81
[2016-07-25] MEDS: NS IV 1000 ML 1,000 ML IV SCH ×2 (00:30→07:18)
[2016-07-25 01:00] VITALS: BP 136/88
[2016-07-25 04:00] VITALS: BP 125/80
[2016-07-25 06:23] LABS: MEAN PLATELET VOLUME 11.5 FL (7.4-10.4); RED BLOOD COUNT 4.45 10^6/uL (4.35-5.85); RED CELL DISTRIBUTION WIDTH 12.6 % (10.0-14.5); WHITE BLOOD COUNT 5.2 10^3/uL (4.3-11.0)
[2016-07-25 06:43] LABS: ANION GAP 10 MMOL/L (5-14); BLOOD UREA NITROGEN 12 MG/DL (7-18); BUN/CREATININE RATIO 16; CALCIUM 8.7 MG/DL (8.5-10.1); CARBON DIOXIDE 20 MMOL/L (21-32); CHLORIDE 107 MMOL/L (98-107); CREATININE SERUM 0.76 MG/DL (0.60-1.30); GFR ESTIMATED > 60; GLUCOSE 216 MG/DL (70-105); POTASSIUM 3.9 MMOL/L (3.6-5.0); SODIUM 137 MMOL/L (135-145)
[2016-07-25 07:55] VITALS: BP 136/91
[2016-07-25] MEDS: inSUlin ASPART (NovoLOG) 1 UNIT/0.01 ML (CHARGE PER UNIT) SC SCH (08:09)
[2016-07-25 08:55] VITALS: BP 136/91
[2016-07-25] MEDS ORDERED: ASPIRIN E.C. 81 MG (ECOTRIN) TAB PO SCH (09:00)
[2016-07-25] MEDS ORDERED: CLOPIDOGREL 75 MG (PLAVIX) TABLET PO SCH (09:00)
[2016-07-25] MEDS ORDERED: ATORVASTATIN 20 MG (LIPITOR) TABLET PO SCH (09:00)
[2016-07-25] MEDS ORDERED: lisINopril 20 MG (ZESTRIL) TAB PO SCH (09:00)
--- NOTE | 2016-07-26 08:12 | CARDIAC CATHETERIZATION ---
PROCEDURE PHYSICIAN: TWIN ALCALA DATE OF PROCEDURE: 07/24/2016 REFERRING PHYSICIAN: Dr. Cagle PERFORMING PHYSICIAN: Dr. Selena Alcala. INDICATION: Critical limb ischemia, right lower extremity. PREOPERATIVE DIAGNOSIS: Critical limb ischemia, right lower extremity. POSTOPERATIVE DIAGNOSES: Successful angioplasty to the right anterior tibial, tibioperoneal trunk and deep peroneal artery. HISTORY: Mr. Car is a 45-year-old gentleman with history of significant history of diabetes. He has had right great-toe amputation 3 weeks ago. He has a nonhealing ulcer around the site of the amputation. This requires further advanced wound care therapy such as hyperbaric therapy. This is critical limb ischemia of the right lower extremity. Therefore, peripheral angiography and possible intervention is recommended. He was started on aspirin, Plavix and high-dose statin. PROCEDURES PERFORMED: 1. Abdominal aortogram with bilateral lower extremity runoff. 2. Selective angiography of the right lower extremity. 3. SECTION CHIEF to the right anterior tibial artery. 4. SECTION CHIEF to the right tibioperoneal trunk. 5. SECTION CHIEF to the right deep peroneal artery. 6. Mynx closure to the left CUSTOMER SERVICE SALES ASSOCIATE. SPECIMENS: None. COMPLICATIONS: None. ESTIMATED BLOOD LOSS: 20 mL. CONTRAST: 275 mL of Omnipaque. FLUOROSCOPY TIME: 22.5 minutes. FLUOROSCOPY DOSE: 594 mGy. MATERIALS USED: 1. 5-Niuean x 11 sheath. 2. Pigtail catheter. 3. 0.035, standard angle Glidewire to 60 cm. 4. 0.035 Storq 300 cm. 5. 6-Niuean x 90 cm flexor sheath. 6. 0.014 Grand slam 300 cm. 7. Second 0.014 Grand slam 300 cm. 8. [employer] 4-Niuean 2 x 150 x 150cm balloon. 9. [place] 14, 2.5 x 60 x 90 cm. 10. 6-Niuean x 11 sheath. PROCEDURE DETAILS: The patient was brought to the Coat Examiner after informed consent was taken. The patient was draped and prepped in the usual sterile fashion. Access was gained in the left femoral artery with a 5-Niuean sheath. We advanced a pigtail catheter on a regular 0.035 J-wire into the distal abdominal aorta. We then performed bilateral lower extremity runoff. There is no significant disease in the distal abdominal aorta. LEFT LOWER EXTREMITY: Patent left common iliac artery, internal iliac artery, external iliac artery, common femoral artery, superficial femoral artery, popliteal artery. Severe diffuse disease is noted in the anterior tibial artery, which forms the dorsalis pedis artery. The left tibioperoneal trunk does not have significant disease and then divides into posterior tibia as well as the deep peroneal artery. Difficult visualization of the mid and distal segments of the deep peroneal as well as the posterior tibial arteries during runoff due to non-optimal contrast filling. RIGHT LOWER EXTREMITY: Patent right common iliac artery, internal iliac artery, external iliac artery, common femoral artery, superficial femoral popliteal artery, popliteal artery. Severe disease is noted in the proximal, mid and distal segment of the right anterior tibial artery. The right tibioperoneal trunk has severe disease. The tibioperoneal trunk divides up into posterior tibial artery, which is a small vessel and then totally occludes. The deep peroneal artery supplies to the foot and has severe ostial mid and distal disease. RECOMMENDATIONS: 1. Intervention is recommended to the right anterior tibial artery. 2. Intervention is recommended to the right tibioperoneal trunk. 3. Intervention is recommended to the right deep peroneal artery. INTERVENTION DETAILS: After the bilateral lower extremity runoff was performed, crossover was performed with pigtail catheter as well as a standard angle glide wire. The glide wire was placed in the distal superficial femoral artery and the pigtail catheter was placed in the SFA and the guidewire was taken out. We then took a 0.035 Storq 300 cm wire and then we took we took out the pigtail catheter and put in a 6-Niuean x 90 cm flexor sheath. The tip of the 6-Niuean sheath was placed in the distal left SFA. We then performed selective right lower extremity angiography which showed no significant disease in the distal SFA and the popliteal artery. The popliteal artery bifurcates into the tibioperoneal trunk which has severe disease as well as the anterior tibial artery which has severe diffuse disease in the proximal mid and distal segments. The posterior tibial artery is a very small blood vessel. The deep peroneal artery also has significant ostium mid and distal disease. We then took a 0.014 grand slam wire and placed it into the distal anterior tibial artery. Also heparin was given for anticoagulation. We then took a [place] 2 x 150 x 150 balloon and performed 2 inflations in the entire segment of the anterior tibial artery. The distal inflation was performed at 12 atmospheres for 117 seconds and then the proximal and mid segment of the anterior tibial artery, angioplasty was performed at 16 atmospheres for 120 seconds. Satisfactory results were noted; however, there was mild residual stenosis around 20% in the mid and distal segment. We then took the same guide wire and balloon and pulled it back into the sheath. We then advanced the same grand slam wire into the tibioperoneal trunk and the deep peroneal artery. However, there was significant possible damage to the tip of the guidewire; therefore, we took that guidewire out and took a brand-new grand slam guidewire and placed it into the distal deep peroneal artery. We then took the same coyote 2 balloon and performed inflation in the distal deep peroneal artery for 6 atmospheres for 12 seconds. We then pulled it a little bit back and performed another inflation at 12 atmospheres for 124 seconds. We then pulled the balloon back and did inflation which covered the tibioperoneal trunk as well as the ostium of the deep peroneal artery. This inflation was done at 14 atmospheres at 120 seconds. We took the balloon out and took pictures and the mid and distal deep peroneal artery had mild residual stenosis; however, the ostium of the deep peroneal artery as well as tibioperoneal trunk still had significant residual stenosis. We then took an [place] 2.5 x 60 x 90 balloon and performed 2 inflations in the tibioperoneal trunk as well as the ostium of the deep peroneal artery at 14 and 16 atmospheres respectively for 2 minutes each. Good results were noted. The guidewire as well as the balloon were taken out and post pictures showed mild residual stenosis in the right anterior tibial, tibioperoneal trunk as well as the right deep peroneal artery. Flow had significantly improved. We then pulled back the sheath into the bifurcation of the aorta and took another angiogram at the bifurcation to show that there was no vascular complication. We then performed Mynx closure to the left CUSTOMER SERVICE SALES ASSOCIATE after the long sheath was exchanged for a short sheath. The patient tolerated the procedure well and did not have any complication. IMPRESSION/CONCLUSION: 1. Critical limb ischemia in the right lower extremity with severe three-vessel disease below the knee. 2. Successful balloon angioplasty to the right anterior tibial, tibioperoneal trunk as well as the deep peroneal artery. Mild residual stenosis is still noted; however, significant improvement in flow is noted. 3. The patient will continue aspirin, Plavix and high-dose statin. 4. The patient will be kept overnight with IV hydration. 5. CBC and BMP will be done in the morning and hopefully he will be discharged in the morning to follow-up with Dr. Cagle and myself in the office. Job ID: [id number] Dictated Date: 07/24/2016 17:40:22 Branch Chief Date: 07/26/2016 07:43:21 / jaki ROSENBAUM
== END 2016-07-25 08:55 | disposition home or self-care (01) ==
LOC: CATH 12:34 → ICU 17:45 → CATH 07-25 08:55
PROVIDERS: ATTEND Internal Medicine Interventional Cardiology
DX: L97.519 Non-pressure chronic ulcer of other part of right foot with unspecified severity (principal); I70.203 Unspecified atherosclerosis of native arteries of extremities, bilateral legs; I70.92 Chronic total occlusion of artery of the extremities; E11.621 Type 2 diabetes mellitus with foot ulcer; Z89.411 Acquired absence of right great toe; Z79.4 Long term (current) use of insulin; Z79.899 Other long term (current) drug therapy
CPT/HCPCS: 36247; 36415; 37228; 37232; 75630; 75774; 80048; 80053; 82962; 85027; 85347; 85610; 85730; 87081

== ENCOUNTER → 2016-08-16 | Outpatient (CLI) | payer OTHER ==
[~2016-08-16] MED LIST changes: +ACET-93 PO; +CLOP75TA28 PO; +METF1000 PO
--- OUTSIDE RECORDS SUMMARY | 2016-08-16 12:02 | XMS REPORT | Continuity of Care Document ---
Author Author [facility] Organization [facility] Address Unknown Phone Unavailable Care Team Providers Care Medical Physiologist Name Role Phone JANUARY MCDONALD MD PCP [...] Converted or Re-Newed RX: Transmitted to Pharmacy ([facility]) Goal/Follow Up Appt: You have a follow up appt with Dr Parrish at [facility] on Jul 05@1020 AM Make sure to [...] follow up appt with Dr Parrish at [facility] on Jul 05@1020AMMake sure to keep your [...] Type Severity Reaction Status Last Updated deepak ([id number]) Adverse Reaction Unknown Active 06/19/16 Immunizations Name Given Type FLU TRIvalent 5 years - Adult 06/20/16 Administered Vital Signs Acute Vital Signs Vital Response Date/Time Temperature (Fahrenheit) 98.2 degrees F (97.6 - 99.5) 06/24/2016 11:40am Temperature (Calculated Celsius) 36.70077 degrees C (36.4 - 37.5) 06/24/2016 8:00am [...] 2.00 inches 06/19/2016 10:45pm Height (Calculated Centimeters) 187.110542 cm 06/19/2016 10:45pm Weight (Pounds) 271 pounds 06/19/2016 10:45pm Weight (Ounces) 1.0 oz 06/19/2016 10:45pm Weight (Calculated Grams) 612668.88 gm 06/19/2016 10:45pm Weight (Calculated Kilograms) 122.605034 kilograms 06/19/2016 10:45pm Calculated BMI 34.8 06/19/2016 [...] 5-9 06/19/2016 9:00pm 06/19/2016 9:14pm Urine Specific [place] 1.015 * 1.016-1.022 06/19/2016 9:00pm 2016 9:14pm [...] 06/19/2016 10:10pm 06/23/2016 7:32am STAPH, COAG NEG (TENTMAKER) 06/19/2016 10:10pm 06/23/2016 7:32am MRSA Screen Nasal [...] Discharge/Depart Date Attending Provider Admitted Inpatient [facility] 06/19/16 10:40pm RUBIA PARRISH MD Recent Diagnosis 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
--- NOTE | 2016-08-16 19:46 | Diagnostic Imaging Report ---
Three views of the right foot. INDICATION: Dehiscence of the amputation stump. FINDINGS: There is amputation of the metatarsophalangeal joint level with amputation stump demonstrating lucency, may relate to air insinuating between the flaps or within the soft tissues. When compared to 07/17/2016 exam, there is no significant change in mild subcortical lucency in the distal aspect of the first metatarsal head which is involved with an oblique plane osteotomy better seen on the lateral projection. The lucency could also be contributed to by the oblique plane of the osteotomy. The findings do not appear changed from the prior exam. No definite new erosion, periosteal reaction or fracture. No dislocation. There is a valgus deformity at the second to the fourth toes. IMPRESSION: Mild apparent lucency in the head of the first metatarsal unchanged from with no evidence of active erosion or periosteal reaction seen. Dictated by: Dictated on workstation # [id number]
== END ==
LOC: RAD 11:58
PROVIDERS: ATTEND Surgery
DX: T87.81 Dehiscence of amputation stump (principal); E11.621 Type 2 diabetes mellitus with foot ulcer; E11.52 Type 2 diabetes mellitus with diabetic peripheral angiopathy with gangrene; L97.513 Non-pressure chronic ulcer of other part of right foot with necrosis of muscle; Z89.411 Acquired absence of right great toe
CPT/HCPCS: 73630

== ENCOUNTER → 2016-10-10 | Outpatient (RCR) | payer OTHER ==
--- OUTSIDE RECORDS SUMMARY | 2016-07-12 14:16 | XMS REPORT | Continuity of Care Document ---
Author Author [facility] Organization [facility] Address Unknown Phone Unavailable Care Team Providers Care Corrosion Control Technician Name Role Phone JANUARY MCDONALD MD PCP Insurance Providers Payer Name Policy Number Subscriber Name Relationship Self Pay Steven Car 18 Self / Same As Patient Advance Directives Directive Response Recorded Date/Time Advance Directives No 06/19/16 11:00pm Resuscitation Status Full Code 06/19/16 11:00pm Chief Complaint and Reason for Visit Chief Complaint OSTEOMYELITIS,PRESSURE ULCER R GREAT TOE Reason for Visit 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 Problems Active Problems Medical Problem Onset Date Status Amputated great toe of right foot Unknown Acute Insulin dependent diabetes mellitus with complications Unknown Acute Medications Current Home Medications Medication Dose Units Route Directions Days/Qty Instructions Start Date Atorvastatin Calcium 20 Mg 20 Mg Oral Daily 06/19/16 Metformin Hcl 750 Mg 750 Mg Oral Daily 06/19/16 Insulin Lispro 200 Unit/1 Ml 43 Units Subcutaneously Before Meals Multivitamin 1 Each 1 Tab Oral Daily 06/19/16 Insulin Glargine,Hum.rec.anlog 100 Unit/1 Ml 20 Units Subcutaneously Daily as needed for Bs 06/20/16 Ibuprofen 200 Mg 400 Mg Oral Three Times A Day as needed for Pain TAKES 2 (200MG) TABLETS 06/20/16 Lisinopril 20 Mg 20 Mg Oral Daily@0900 30 06/24/16 Ciprofloxacin Hcl 500 Mg 500 Mg Oral Twice A Day 06/24/16 Amoxicillin/Potassium Clav 1 Each 1 Each Oral Twice A Day 06/24/16 Past Home Medications Medication Directions Ordered Status Clindamycin Hcl 300 Mg Capsule, 300 Mg Oral Every 8HRS 06/19/16 Discontinued Sulfamethoxazole/Trimethoprim 1 Each Tablet, 1 Tab Oral Twice A Day 06/19/16 Discontinued Lisinopril 10 Mg Tablet, 10 Mg Oral Daily 06/19/16 Discontinued Social History Social History Problem Response Recorded Date/Time Alcohol Use Denies Use 06/19/2016 11:00pm Recreational Drug Use No 06/19/2016 11:00pm Recent Foreign Travel No 06/19/2016 11:00pm Recent Infectious Disease Exposure No 06/19/2016 11:00pm Smoking Status Never a Smoker 06/19/2016 11:00pm Recent Hopitalizations N 10/2015 DKA ([facility]LEON) 06/19/2016 11:00pm Query Response Start Date Stop Date Smoking Status Never a Smoker Hospital Discharge Instructions Patient Instructions Physician Instructions New, Converted or Re-Newed RX: Transmitted to Pharmacy ([facility]) Goal/Follow Up Appt: You have a follow up appt with Dr Parrish at [facility] on Jul 05@1020 AM Make sure to keep your appts with Dr Mirza Patient Instructions: - Wound care per Dr Mirza - Non Weight bearing Status Return to The Hospital For: Fever Unable to tolerate antibioitics Chest pain Shortness of breath Discharge Diet: ADA Diet Activity as Tolerated: Yes Pneu Vac Indicated: Yes Care Plan Patient Instructions:: - Wound care per Dr Mirza- Non Weight bearing Status Goal:: You have a follow up appt with Dr Parrish at [facility] on Jul 05@1020AMMake sure to keep your appts with Dr Mirza Plan of Care Discharge Date 06/24/16 11:40am Disposition 01 HOME, SELF-CARE Instructions/Education Provided Foot Care for Diabetics Diabetic Meal Planning Prescriptions See Medication Section Referrals (Unspecified) - Today Reason(s) for Referral: Amputated great toe of right foot Care Plan and Goals See Discharge Instructions Section Functional Status Query Response Date Recorded Patient Orientation Normal For Age June 22, 2016 2:46pm Patient Orientation Person Place Time Situation Eyes Open June 24, 2016 2:38pm Comprehension Ability Understands Concepts June 24, 2016 8:45am Allergies, Adverse Reactions, Alerts Allergen Type Severity Reaction Status Last Updated deepak ([id number]) Adverse Reaction Unknown Active 06/19/16 Immunizations Name Given Type FLU TRIvalent 5 years - Adult 06/20/16 Administered Vital Signs Acute Vital Signs Vital Response Date/Time Temperature (Fahrenheit) 98.2 degrees F (97.6 - 99.5) 06/24/2016 11:40am Temperature (Calculated Celsius) 36.34350 degrees C (36.4 - 37.5) 06/24/2016 8:00am Temperature Source Tympanic 06/24/2016 11:40am Pulse Rate (adult) 86 bpm (60 - 90) 06/24/2016 11:40am Respiratory Rate 16 bpm (12 - 24) 06/24/2016 11:40am O2 Sat by Pulse Oximetry 98 % (88 - 100) 06/24/2016 11:40am Blood Pressure 145/79 mm Hg 06/24/2016 11:40am Blood Pressure Mean 101 mm Hg 06/24/2016 8:00am Pain Numeric Pain Scale 0-No Pain 06/24/2016 11:40am Pain Intensity 0 06/24/2016 12:11am Height (Feet) 6 feet 06/19/2016 10:45pm Height (Inches) 2.00 inches 06/19/2016 10:45pm Height (Calculated Centimeters) 187.645290 cm 06/19/2016 10:45pm Weight (Pounds) 271 pounds 06/19/2016 10:45pm Weight (Ounces) 1.0 oz 06/19/2016 10:45pm Weight (Calculated Grams) 097977.88 gm 06/19/2016 10:45pm Weight (Calculated Kilograms) 122.701389 kilograms 06/19/2016 10:45pm Calculated BMI 34.8 06/19/2016 10:45pm Capillary Refill Capillary Refill Less Than 3 Seconds 06/21/2016 9:00am Results Laboratory Results Test Name Result Units Flags Reference Collection Date/Time Result Date/ Time Comments White Blood Count 7.5 10^3/uL 4.3-11.0 06/24/2016 5:06/24/2016 5: 34am Red Blood Count 3.83 10^6/uL L 4.35-5.85 06/24/2016 5:06/24/2016 5: 34am Hemoglobin 11.7 G/DL L 13.3-17.7 06/24/2016 5:06/24/2016 5:34am Hematocrit 35 % L 40-54 06/24/2016 5:06/24/2016 5:34am Mean Corpuscular Volume 91 FL 80-99 06/24/2016 5:06/24/2016 5: 34am Mean Corpuscular Hemoglobin 31 PG 25-34 06/24/2016 5:06/24/2016 5: 34am Mean Corpuscular Hemoglobin Concent 34 G/DL 32-36 06/24/2016 5:12/2016 5:34am Red Cell Distribution Width 11.7 % 10.0-14.5 06/24/2016 5:2016 5:34am Platelet Count 288 10^3/uL 130-400 06/24/2016 5:06/24/2016 5:34am Mean Platelet Volume 9.7 FL 7.4-10.4 06/24/2016 5:06/24/2016 5: 34am Neutrophils (%) (Auto) 65 % 42-75 06/24/2016 5:06/24/2016 5:34am Lymphocytes (%) (Auto) 25 % 12-44 06/24/2016 5:06/24/2016 5:34am Monocytes (%) (Auto) 8 % 0-12 06/24/2016 5:06/24/2016 5:34am Eosinophils (%) (Auto) 2 % 0-10 06/24/2016 5:06/24/2016 5:34am Basophils (%) (Auto) 0 % 0-10 06/24/2016 5:06/24/2016 5:34am Neutrophils # (Auto) 4.9 X 10^3 1.8-7.8 06/24/2016 5:06/24/2016 5: 34am Lymphocytes # (Auto) 1.9 X 10^3 1.0-4.0 06/24/2016 5:10am 06/24/2016 5: 34am Monocytes # (Auto) 0.6 X 10^3 0.0-1.0 06/24/2016 5:10am 06/24/2016 5: 34am Eosinophils # (Auto) 0.2 10^3/uL 0.0-0.3 06/24/2016 5:10am 06/24/2016 5 :34am Basophils # (Auto) 0.0 10^3/uL 0.0-0.1 06/24/2016 5:10am 06/24/2016 5: 34am Neutrophils % (Manual) 53 % 06/19/2016 7:49pm 06/19/2016 8:17pm Band Neutrophils 22 % 06/19/2016 7:49pm 06/19/2016 8:17pm Lymphocytes % (Manual) 18 % 06/19/2016 7:49pm 06/19/2016 8:17pm Monocytes % (Manual) 7 % 06/19/2016 7:49pm 06/19/2016 8:17pm Eosinophils % (Manual) 0 % 06/19/2016 7:49pm 06/19/2016 8:17pm Basophils % (Manual) 0 % 06/19/2016 7:49pm 06/19/2016 8:17pm Blood Morphology Comment NORMAL 06/19/2016 7:49pm 06/19/2016 8: 17pm Erythrocyte Sedimentation Rate 7 MM/HR 0-15 06/19/2016 7:49pm 2016 8:27pm Urine Color YELLOW 06/19/2016 9:00pm 06/19/2016 9:14pm Urine Clarity CLEAR 06/19/2016 9:00pm 06/19/2016 9:14pm Urine pH 6 5-9 06/19/2016 9:00pm 06/19/2016 9:14pm Urine Specific [place] 1.015 * 1.016-1.022 06/19/2016 9:00pm 2016 9:14pm Urine Protein 2+ * NEGATIVE 06/19/2016 9:00pm 06/19/2016 9:14pm Urine Glucose (UA) 4+ * NEGATIVE 06/19/2016 9:00pm 06/19/2016 9:14pm Urine RBC (Auto) 1+ * NEGATIVE 06/19/2016 9:00pm 06/19/2016 9:14pm Urine Ketones 4+ * NEGATIVE 06/19/2016 9:00pm 06/19/2016 9:14pm Urine Nitrite NEGATIVE NEGATIVE 06/19/2016 9:00pm 06/19/2016 9:14pm Urine Bilirubin NEGATIVE NEGATIVE 06/19/2016 9:00pm 06/19/2016 9: 14pm Urine Urobilinogen 4 MG/DL * NORMAL 06/19/2016 9:00pm 06/19/2016 9:14pm Urine Leukocyte Esterase NEGATIVE NEGATIVE 06/19/2016 9:00pm 2016 9:14pm Urine RBC 0-2 /HPF 06/19/2016 9:00pm 06/19/2016 9:14pm Urine WBC NONE /HPF 06/19/2016 9:00pm 06/19/2016 9:14pm Urine Bacteria NONE /HPF 06/19/2016 9:00pm 06/19/2016 9:14pm Urine Squamous Epithelial Cells 2-5 /HPF 06/19/2016 9:00pm 2016 9:14pm Urine Crystals NONE /LPF 06/19/2016 9:00pm 06/19/2016 9:14pm Urine Casts NONE /LPF 06/19/2016 9:00pm 06/19/2016 9:14pm Urine Mucus NEGATIVE /LPF 06/19/2016 9:00pm 06/19/2016 9:14pm Urine Culture Indicated NO 06/19/2016 9:00pm 06/19/2016 9:14pm Sodium Level 139 MMOL/L 135-145 06/24/2016 5:10am 06/24/2016 5:51am Potassium Level 4.1 MMOL/L 3.6-5.0 06/24/2016 5:10am 06/24/2016 5:51am Chloride Level 108 MMOL/L H 98-107 06/24/2016 5:10am 06/24/2016 5:51am Carbon Dioxide Level 19 MMOL/L L 21-32 06/24/2016 5:10am 06/24/2016 5: 51am Anion Gap 12 MMOL/L 5-14 06/24/2016 5:10am 06/24/2016 5:51am Blood Urea Nitrogen 12 MG/DL 7-18 06/24/2016 5:10am 06/24/2016 5:51am Creatinine 0.70 MG/DL 0.60-1.30 06/24/2016 5:10am 06/24/2016 5:51am BUN/Creatinine Ratio 17 06/24/2016 5:10am 06/24/2016 5:51am Estimat Glomerular Filtration Rate > 60 06/24/2016 5:10am 2016 5:51am GFR INTERPRETIVE DATA UNITS FOR ESTIMATED GFR (eGFR): mL/min/1.73 M2 REFERENCE RANGE FOR ESTIMATED GFR (eGFR) eGFR NORMAL eGFR >60 MODERATELY DECREASED eGFR 30-59 SEVERLY DECREASED eGFR 15-29 KIDNEY FAILURE <15 (OR DIALYSIS) Glucose Level 159 MG/DL H 70-105 06/24/2016 5:10am 06/24/2016 5:51am Glucometer 122 MG/DL H 70-110 06/23/2016 9:39pm 06/24/2016 12:45am Calcium Level 8.6 MG/DL 8.5-10.1 06/24/2016 5:10am 06/24/2016 5:51am Total Bilirubin 0.9 MG/DL 0.1-1.0 06/20/2016 5:20am 06/20/2016 5:57am Alkaline Phosphatase 75 U/L 40-136 06/20/2016 5:20am 06/20/2016 5:57am Aspartate Amino Transf (AST/SGOT) 11 U/L 5-34 06/20/2016 5:20am 2016 5:57am Alanine Aminotransferase (ALT/SGPT) 10 U/L 0-55 06/20/2016 5:20am 06/20 5:57am Total Protein 6.3 G/DL L 6.4-8.2 06/20/2016 5:20am 06/20/2016 5:57am Albumin 3.2 G/DL 3.2-4.5 06/20/2016 5:20am 06/20/2016 5:57am Lactic Acid Level 1.3 MMOL/L 0.5-2.0 06/19/2016 9:14pm 06/19/2016 9: 53pm C-Reactive Protein High Sensitivity 15.15 MG/DL H 0.00-0.50 06/19/2016 7: 49pm 06/19/2016 8:24pm Vancomycin Level Trough 11.0 UG/ML 10.0-20.0 06/21/2016 2:05pm 2016 2:41pm Hemoglobin A1c 10.5 % H 4.5-6.2 06/21/2016 5:00am 06/21/2016 6:25am Microbiology Results Procedure Source Result Collection Date/Time Result Date/Time Blood Culture Peripheral, Lt Ac No growth 06/19/2016 9:21pm 06/20/2016 3: 44pm Blood Culture Peripheral, Rt Ac No growth 06/19/2016 9:14pm 06/20/2016 3: 44pm Anaerobic Culture Ulcer, Toe BACTEROIDES FRAGILIS GROUP 06/19/2016 10:10pm 06/22/2016 4:19pm Wound Culture Ulcer, Toe ENTEROCOCCUS FAECALIS 06/19/2016 10:10pm 2016 7:32am KLEBSIELLA OXYTOCA 06/19/2016 10:10pm 06/23/2016 7:32am STAPH, COAG NEG (CLINICAL RESEARCH PHYSICIAN) 06/19/2016 10:10pm 06/23/2016 7:32am MRSA Screen Nasal MRSA not isolated 06/21/2016 11:29am 06/22/2016 2:40pm Anaerobic Culture Bone, Metatarsal, Right ANAEROBIC GRAM NEGATIVE MJ 2016 1:00pm 06/23/2016 7:47am Surgical Culture Bone, Metatarsal, Right ENTEROCOCCUS SPECIES 06/21/2016 1: 00pm 06/23/2016 7:47am KLEBSIELLA OXYTOCA 06/21/2016 1:00pm 06/23/2016 7:47am Anaerobic Culture Wound, Toe ANAEROBIC GRAM NEGATIVE MJ 06/21/2016 1:00pm 06/23/2016 7:41am Surgical Culture Wound, Toe ENTEROCOCCUS SPECIES 06/21/2016 1:00pm 2016 7:41am GRAM NEGATIVE MJ 06/21/2016 1:00pm 06/23/2016 7:41am Surgical Culture Wound, Amputation No growth 06/23/2016 12:27pm 06/24/2016 11:07am Procedures Procedure Status Date Provider(s) Incision and drainage Completed 06/21/16 DALI MIRZA DPTania Closure of wound Completed 06/23/16 DALI MIRZA DPTania Encounters Encounter Location Arrival/Admit Date Discharge/Depart Date Attending Provider Admitted Inpatient [facility] 06/19/16 10:40pm RUBIA PARRISH MD Recent Diagnosis 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
== END | disposition home or self-care (01) ==
LOC: WOUNDCARE 07-12 14:13
PROVIDERS: ATTEND Surgery
DX: E11.621 Type 2 diabetes mellitus with foot ulcer (principal); E11.52 Type 2 diabetes mellitus with diabetic peripheral angiopathy with gangrene; L97.513 Non-pressure chronic ulcer of other part of right foot with necrosis of muscle; I70.235 Atherosclerosis of native arteries of right leg with ulceration of other part of foot; T87.81 Dehiscence of amputation stump; Z89.411 Acquired absence of right great toe
CPT/HCPCS: 11042; 11043; 15275; 82962; 87070; 87075; 87077; 87186; 87205; 99183; 99211; 99212

== ENCOUNTER 2016-10-17 10:28 | Outpatient (RCR) | payer OTHER | END 2016-10-17 16:00 | disposition home or self-care (01) | LOC: WOUNDCARE 10:28 | PROVIDERS: ATTEND Surgery | DX: E11.621 Type 2 diabetes mellitus with foot ulcer (principal); E11.52 Type 2 diabetes mellitus with diabetic peripheral angiopathy with gangrene; L97.513 Non-pressure chronic ulcer of other part of right foot with necrosis of muscle; I70.235 Atherosclerosis of native arteries of right leg with ulceration of other part of foot; T87.81 Dehiscence of amputation stump; Z89.411 Acquired absence of right great toe | CPT/HCPCS: 11042; 99212 ==

== ENCOUNTER 2017-01-01 15:37 | Observation (INO) | payer OTHER ==
[~2017-01-01] VITALS: Ht 188 cm; Wt 122.7 kg
[2017-01-01 15:30] VITALS: BP 136/91
[2017-01-01] MEDS ORDERED: PIPERACILLIN/TAZOBACTAM 4.5 GM/NS100 ML IVPB IV NR ×2 (17:15)
[2017-01-01] MEDS ORDERED: PIPERACILLIN SODIUM/TAZOBACTAM 4.5 GM in NS (IVPB) 100 ML IV SCH (17:15)
[2017-01-01 17:29] LABS: BASOPHILS % (AUTO) 0 % (0-10); EOSINOPHILS % (AUTO) 1 % (0-10); LYMPHOCYTES # (AUTO) 1.4 X 10^3 (1.0-4.0); LYMPHOCYTES % (AUTO) 17 % (12-44); MEAN CORPUSCULAR HEMOGLOBIN 31 PG (25-34); MEAN CORPUSCULAR HGB CONC 34 G/DL (32-36); MEAN CORPUSCULAR VOLUME 90 FL (80-99); MONOCYTES # (AUTO) 0.6 X 10^3 (0.0-1.0); MONOCYTES % (AUTO) 7 % (0-12); NEUTROPHILS # (AUTO) 6.3 X 10^3 (1.8-7.8); NEUTROPHILS % (AUTO) 76 % (42-75); PLATELET COUNT 309 10^3/uL (130-400); RED BLOOD COUNT 4.44 10^6/uL (4.35-5.85); RED CELL DISTRIBUTION WIDTH 11.6 % (10.0-14.5); WHITE BLOOD COUNT 8.4 10^3/uL (4.3-11.0)
[2017-01-01] MEDS ORDERED: VANCOMYCIN 2000 MG/NS 500 ML IVPB IV NR ×2 (17:30)
[2017-01-01] MEDS: ENOXAPARIN 40 MG/0.4 ML (LOVENOX) SYR SC SCH (17:46)
[2017-01-01 17:48] LABS: ALANINE AMINOTRANSFERASE 12 U/L (0-55); ALBUMIN 3.7 GM/DL (3.2-4.5); ANION GAP 9 MMOL/L (5-14); ASPARTATE AMINO TRANSFERASE 9 U/L (5-34); BILIRUBIN,TOTAL 0.7 MG/DL (0.1-1.0); BLOOD UREA NITROGEN 19 MG/DL (7-18); BUN/CREATININE RATIO 21; CALCIUM 9.4 MG/DL (8.5-10.1); CARBON DIOXIDE 24 MMOL/L (21-32); CHLORIDE 105 MMOL/L (98-107); CREATININE SERUM 0.91 MG/DL (0.60-1.30); GFR ESTIMATED > 60; GLUCOSE 233 MG/DL (70-105); POTASSIUM 4.6 MMOL/L (3.6-5.0); SODIUM 138 MMOL/L (135-145); TOTAL PROTEIN 7.6 GM/DL (6.4-8.2)
--- NOTE | 2017-01-01 18:01 | Diagnostic Imaging Report ---
PROCEDURE: CT right lower extremity without contrast. TECHNIQUE: Axially acquired CT was obtained through the right lower extremity without intravenous contrast. Coronal and sagittal reformations were also performed. INDICATION: Soft tissue swelling and ulcer of the forefoot. COMPARISON: Right foot radiographs of 08/16/2016. FINDINGS: Surgical changes from amputation of the great toe. No cortical destruction or osseous erosions to confirm osteomyelitis. There is soft tissue swelling and induration at the surgical site from great toe amputation. Metallic BB within the soft tissues of the amputation is unchanged from radiograph of 08/16/2016. There are mild degenerative changes at the tarsometatarsal articulations. No osseous destruction/fragmentation or disorganization to suggest neuropathic joint. Minimal fatty atrophy of the intrinsic musculature of the foot can be seen with diabetes. Extensive vascular calcifications are seen. IMPRESSION: 1. No CT confirmation of osteomyelitis. Please note that MRI is much more sensitive for early changes of osteomyelitis. If patient has an open dermal wound and no contraindication to MRI, MRI of the foot is suggested for more sensitive assessment. Dictated by: Dictated on workstation # [id number]
--- NOTE | 2017-01-01 18:57 | History & Physicial (CHS) ---
HPI History of Present Illness: 46 yo M with history of DM foot wound s/p R great toe amputation earlier this year that presented to [facility] same day for opening up of the incision and drainage. Patient states that it has been open for 2-3 days. + pus colored fluid coming from wound. He completed wound care clinic with hyperbaric treatments. States that he did not realize how bad it was getting because he has severe neuropathy of his foot. Denies any other wounds. No systemic signs of infection. Denies pain in foot. + swelling and redness that have been getting worse the last 2-3 days. Source: patient, old records Exam Limitations: no limitations Date seen by provider: Jan 01, 2017 Time Seen by Provider: 15:35 Attending Physician Rubia Parrish MD PCP Rubia Parrish MD Consult Date of Admission Jan 01, 2017 at 15:50 Home Medications Home Medications Reviewed patient Home Medication Reconciliation Form Allergies Coded Allergies: canagliflozin (Unverified Adverse Reaction, Unknown, 06/19/16) XPU-Gwvmxv-Elnxdi Hx Patient Social History Living Status: Lives at home with Recent Foreign Travel: No Contact w/other who traveled: No Recent Hopitalizations: No (10/2015 DKA ([facility])) Past Medical History IDDM II: Uncontrolled with neuropathy Osteomyelitis R great toe s/p amputation HTN PVD s/p ballooning by Dr Alcala 2016 Family Medical History Family History: Diabetes mellitus 19 FATHER G8 SISTER FH: pulmonary embolism 19 FATHER Myocardial infarction 19 FATHER Review of Systems ([facility]) Constitutional: no symptoms reported, No chills, No fever EENTM: no symptoms reported Respiratory: no symptoms reported, No cough, No dyspnea on exertion, No short of breath Cardiovascular: no symptoms reported, No chest pain, No palpitations Gastrointestinal: no symptoms reported, No abdominal pain, No constipation, No nausea, No vomiting Genitourinary: no symptoms reported, No dysuria, No frequency, No hematuria Musculoskeletal: joint swelling (Right foot) Skin: other (wound on R foot at closure site from amputation) Psychiatric/Neurological: Denies Anxiety, Denies Depressed, Numbness Reviewed Test Results Reviewed Test Results Lab Laboratory Tests Test 01/01/17 17:20 Range/Units White Blood Count 8.4 4.3-11.0 10^3/uL Red Blood Count 4.44 4.35-5.85 10^6/uL Hemoglobin 13.6 13.3-17.7 G/DL Hematocrit 40 40-54 % Mean Corpuscular Volume 90 80-99 FL Mean Corpuscular Hemoglobin 31 25-34 PG Mean Corpuscular Hemoglobin Concent 34 32-36 G/DL Red Cell Distribution Width 11.6 10.0-14.5 % Platelet Count 309 130-400 10^3/uL Mean Platelet Volume 10.0 7.4-10.4 FL Neutrophils (%) (Auto) 76 H 42-75 % Lymphocytes (%) (Auto) 17 12-44 % Monocytes (%) (Auto) 7 0-12 % Eosinophils (%) (Auto) 1 0-10 % Basophils (%) (Auto) 0 0-10 % Neutrophils # (Auto) 6.3 1.8-7.8 X 10^3 Lymphocytes # (Auto) 1.4 1.0-4.0 X 10^3 Monocytes # (Auto) 0.6 0.0-1.0 X 10^3 Eosinophils # (Auto) 0.0 0.0-0.3 10^3/uL Basophils # (Auto) 0.0 0.0-0.1 10^3/uL Sodium Level 138 135-145 MMOL/L Potassium Level 4.6 3.6-5.0 MMOL/L Chloride Level 105 98-107 MMOL/L Carbon Dioxide Level 24 21-32 MMOL/L Anion Gap 9 5-14 MMOL/L Blood Urea Nitrogen 19 H 7-18 MG/DL Creatinine 0.91 0.60-1.30 MG/DL Estimat Glomerular Filtration Rate > 60 BUN/Creatinine Ratio 21 Glucose Level 233 H 70-105 MG/DL Calcium Level 9.4 8.5-10.1 MG/DL Total Bilirubin 0.7 0.1-1.0 MG/DL Aspartate Amino Transf (AST/SGOT) 9 5-34 U/L Alanine Aminotransferase (ALT/SGPT) 12 0-55 U/L Alkaline Phosphatase 68 40-136 U/L Total Protein 7.6 6.4-8.2 GM/DL Albumin 3.7 3.2-4.5 GM/DL Radiology CT R foot pending Physical Exam-([facility]) Physical Exam Vital Signs Capillary Refill : General Appearance: WD/WN, no apparent distress HEENT: PERRL/EOMI Neck: non-tender, full range of motion, supple, normal inspection Respiratory: chest non-tender, lungs clear, normal breath sounds, no respiratory distress, no accessory muscle use Cardiovascular: normal peripheral pulses, regular rate, rhythm, no edema, no gallop, no JVD, no murmur Gastrointestinal: normal bowel sounds, non tender, soft, no organomegaly, no pulsatile mass Extremities: normal range of motion, non-tender, no calf tenderness, other ( Wound on Right Great toe with callaus formation on plantar surface, + erythema to midfoot, Purulent drainage from wound) 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, alert, normal mood/affect, oriented x 3, sensory deficit (Poor sensation on feet bilaterally, no ttp of wound) Lymphatic: no adenopathy Assessment/Plan Assessment/Plan Plan 46 yo M that presented to [facility] for concerns of Right foot wound infection admitted infected DM foot wound requiring IV antibiotics and debridement Plan Diabetic Foot Wound: Right Great toe - Dr Garcia and Wound care consulted - Started on broad spectrum antibiotics, Vanc/Zosyn D1 - Will get surgical wound culture - CT Right Foot pending - Will need debridement of wound - NPO at midnight Insulin Dependent DM with Neuropathy and PVD - Restarted home insulin - A1c pending - SSI HTN - Restarted home Lisinopril PVD - Restarted home Plavix FEN: ADA diet for dinner, NPO at midnight DVT PPX: Lovenox 40, GFR >40 Dispo: Admit to Obs for IV antibiotics and surgical consult Diagnosis/Problems: Copy Copies To 1: RUBIA PARRISH MD, HOLLY R MD Jan 01, 2017 18:57
[2017-01-01] MEDS ORDERED: CATHETER FLUSH 10 ML SYR IV PRN (19:30)
[2017-01-01] MEDS: inSUlin ASPART (NovoLOG) 1 UNIT/0.01 ML (CHARGE PER UNIT) SC SCH (20:23)
[2017-01-01 20:44] VITALS: BP 142/82
[2017-01-01] MEDS ORDERED: VANCOMYCIN INJECTION 1,500 MG in NS IV 500 ML 500 ML IV SCH (21:00)
[2017-01-01] MEDS: CATHETER FLUSH 10 ML SYR IV SCH (22:26)
[2017-01-01] MEDS: PIPERACILLIN/TAZOBACTAM 4.5 GM/NS 100 ML IVPB IV SCH ×2 (22:53)
[2017-01-02] VITALS: BP 121/65
[2017-01-02] MEDS: VANCOMYCIN 1500 MG/NS 500 ML IVPB IV SCH ×6 (03:48→19:31)
[2017-01-02 04:00] VITALS: BP 129/80
[2017-01-02] MEDS ORDERED: inSUlin ASPART (NovoLOG) 1 UNIT/0.01 ML (CHARGE PER UNIT) SC SCH ×3 (06:00→12:00)
[2017-01-02] MEDS: CATHETER FLUSH 10 ML SYR IV SCH ×2 (06:22→14:21)
[2017-01-02] MEDS: inSUlin ASPART (NovoLOG) 1 UNIT/0.01 ML (CHARGE PER UNIT) SC SCH ×4 (06:22→21:44)
[2017-01-02 06:45] LABS: BASOPHILS % (AUTO) 1 % (0-10); EOSINOPHILS # (AUTO) 0.1 10^3/uL (0.0-0.3); EOSINOPHILS % (AUTO) 2 % (0-10); LYMPHOCYTES # (AUTO) 1.8 X 10^3 (1.0-4.0); LYMPHOCYTES % (AUTO) 25 % (12-44); MEAN CORPUSCULAR HEMOGLOBIN 30 PG (25-34); MEAN CORPUSCULAR HGB CONC 33 G/DL (32-36); MEAN CORPUSCULAR VOLUME 91 FL (80-99); MEAN PLATELET VOLUME 10.1 FL (7.4-10.4); MONOCYTES # (AUTO) 0.6 X 10^3 (0.0-1.0); MONOCYTES % (AUTO) 8 % (0-12); NEUTROPHILS # (AUTO) 4.8 X 10^3 (1.8-7.8); NEUTROPHILS % (AUTO) 66 % (42-75); PLATELET COUNT 269 10^3/uL (130-400); RED BLOOD COUNT 4.18 10^6/uL (4.35-5.85); RED CELL DISTRIBUTION WIDTH 11.6 % (10.0-14.5); WHITE BLOOD COUNT 7.3 10^3/uL (4.3-11.0)
[2017-01-02] MEDS: PIPERACILLIN/TAZOBACTAM 4.5 GM/NS 100 ML IVPB IV SCH ×4 (06:46→14:21)
[2017-01-02] MEDS ORDERED: MULTIVIT W/MINERALS TAB (THERAGRAN M) PO SCH (07:00)
[2017-01-02 07:02] LABS: ANION GAP 9 MMOL/L (5-14); BLOOD UREA NITROGEN 16 MG/DL (7-18); BUN/CREATININE RATIO 18; CARBON DIOXIDE 24 MMOL/L (21-32); CHLORIDE 104 MMOL/L (98-107); CREATININE SERUM 0.88 MG/DL (0.60-1.30); GFR ESTIMATED > 60; GLUCOSE 269 MG/DL (70-105); POTASSIUM 4.4 MMOL/L (3.6-5.0); SODIUM 137 MMOL/L (135-145)
[2017-01-02 08:00] VITALS: BP 187/92
--- NOTE | 2017-01-02 08:09 | Podiatry Progress Note ---
Standard Progress Note Progress Notes/Assess & Plan Date Seen by Provider: Jan 02, 2017 Time Seen by Provider: 08:04 Progress/Assessment & Plan There is a deep wound to the right hallux amputation site with a contiguous ulceration to the plantar aspect of the foot, purulent discharge, some erythema , no proximal streaking. See dictation for more detail. A/P: Deep abscess/Cellulitis right foot. Diabetic Neuropathy. History of amputation of the right hallux. The wound was cleaned, deep swab culture taken. Bedside debridement performed, packed with iodoform. He is to be Non-Weight bearing right foot. Consider radiology advice for MRI. CT is not as sensitive as MRI but it didn't indicate any osteomyelitis at this time. The patient was taken off NPO status for now. Final Diagnosis Deep abscess/Cellulitis right foot. Diabetic Neuropathy. History of amputation of the right hallux. DALI MIRZA DPM Jan 02, 2017 08:09
[2017-01-02] MEDS ORDERED: NON-FORMULARY MEDICATION 1 EA EA (Multivitamin (Daily Multiple Vitamin) 1 TAB) PO SCH (09:00)
[2017-01-02] MEDS ORDERED: lisINopril 20 MG (ZESTRIL) TAB PO SCH (09:00)
[2017-01-02] MEDS ORDERED: ATORVASTATIN 20 MG (LIPITOR) TABLET PO SCH (09:00)
[2017-01-02] MEDS ORDERED: CLOPIDOGREL 75 MG (PLAVIX) TABLET PO SCH (09:00)
[2017-01-02 12:00] VITALS: BP 137/78
--- NOTE | 2017-01-02 12:31 | CONSULTATION REPORT ---
DATE OF CONSULTATION: 01/02/2017 REFERRING PHYSICIAN: REASON FOR CONSULT: Diabetic foot care. HISTORY OF PRESENT ILLNESS: This 46-year-old male was admitted secondary to an open wound of his right great toe amputation site. He indicates he has profound numbness to the foot. He said a few days ago he may have stepped on something but he was not sure. He noticed that there is some pus coming from the area and fluid from the amputation site that previously had been completely healed. He did not indicate any current fever or chills, nausea or vomiting. PAST MEDICAL HISTORY: Includes: 1. Insulin-dependent diabetes. 2. Hypertension. History. 3. Of peripheral vascular disease with ballooning by Dr. Alcala in 2017. 4. Earlier amputation of the right hallux secondary to osteomyelitis. CURRENT MEDICATIONS: Includes: 1. Insulin 2. Plavix 3. Zestril 4. multivitamin 5. vancomycin 6. Zosyn ALLERGIES: The patient is allergic to canagliflozin. SOCIAL HISTORY: The patient lives with his at home. No indication of tobacco, alcohol or illicit drug use. He was to return to the job market with a couple of interviews scheduled for this next couple of days. FAMILY HISTORY: Includes diabetes with his father and sister. PHYSICAL EXAMINATION: This is a well-developed male in no apparent distress. He is currently afebrile. The patient had palpable pedal pulses right, capillary refill time is less than 3 seconds to the lesser toes. Light touch sensation is diminished on the right lower extremity. DERMATOLOGICALLY: The patient has a full thickness wound to the incision site dorsal aspect of the right hallux metatarsal phalangeal joint area. There is a tunneling from this wound plantarly which is contiguous with purulence to the inferior aspect of this same area that measures approximately 1 cm in diameter with surrounding erythema. There does not appear to be any proximal streaking at this time. The probing through the dorsal aspect of the wound or the plantar, there does not appear to be any direct contact with bone; however, it does not feel like there is much in between the soft tissue and remaining bone. The CT that was taken yesterday was reviewed, at least the report was reviewed which indicated "no CT confirmation of osteomyelitis. Please MRI is not much more sensitive for early changes of osteomyelitis. If the patient has an open dermal wound and no contraindications to MRI, MRI of the foot is suggested for more sensitive assessment." MUSCULOSKELETAL FINDINGS: The patient has an amputation of the right hallux. ASSESSMENT: Deep abscess with cellulitis, right foot. PLAN: Various treatment options were discussed with the patient. A bedside debridement was performed to the loose skin of the plantar aspect of the foot. Irrigation with sterile fluids were performed to the plantar and dorsal wounds after which a swab culture was taken of the deep tissue and sent out for gross and microscopic evaluation, aerobic and anaerobic. The wound was then packed with 1/4 inch iodoform, sterile 4 x 4's, and a gauze dressing was applied. I discontinued the n.p.o. order and would anticipate that, we will wait for the cultures to come back and perform local wound care at this point until confirmation of osteomyelitis might be present. For this, I would recommend an MRI as the radiologist indicated. We will continue with broad-spectrum IV antibiotics for now. I recommend the patient be nonweightbearing right lower extremity. Job ID: [id number] Dictated Date: 01/02/2017 11:54:40 Drip Pumper Date: 01/02/2017 12:21:25/jaki
[2017-01-02] MEDS: inSUlin (REGULAR) HUMAN 1 UNIT/0.01 ML (CHARGE PER UNIT) SC SCH ×2 (13:31→19:30)
[2017-01-02 15:44] VITALS: BP 118/58
[2017-01-02] MEDS: ENOXAPARIN 40 MG/0.4 ML (LOVENOX) SYR SC SCH (16:56)
--- NOTE | 2017-01-02 17:49 | Diagnostic Imaging Report ---
EXAM: FOOT, RIGHT, 3 VIEW. INDICATION: Wound of the right foot. COMPARISON: CT of the right foot from yesterday. FINDINGS: Again noted is amputation of the right first phalanx and metatarsal head. No radiopaque foreign bodies. No suspicious osteoblastic or lytic osseous findings. No gas in the soft tissues. Ymae-rk-vgeoadxw degenerative changes involving the IP joints, mid foot, and ankle. No fractures. Achilles and plantar calcaneal heel spurs. Vascular calcifications. IMPRESSION: No change from yesterday. No radiopaque foreign bodies. No gas in the soft tissues. No suspicious osteolytic or blastic lesions. Dictated by: Dictated on workstation # [id number]
[2017-01-02] MEDS ORDERED: TROUGH ORDER-PHARMACY XX NR (18:00)
[2017-01-02] MEDS ORDERED: AMOX-358 PO (19:17)
--- NOTE | 2017-01-02 19:22 | Discharge Instructions ---
Discharge [facility] Discharge Medications New, Converted or Re-Newed RX: Transmitted to Pharmacy New Medications: Amoxicillin/Potassium Clav (Augmentin 875-125 Tablet) 1 Each Tablet 1 EACH PO BID for 10 Days, #20 TAB Continued Medications: Acetaminophen (Acetaminophen) 500 Mg Tablet 500-1000 MG PO Q6H PRN for PAIN-MILD, TAB TAKES 1-2 OF A (500 MG) TABLET / ALTERNATES WITH IBUPROFEN Atorvastatin Calcium (Atorvastatin Calcium) 20 Mg Tablet 20 MG PO DAILY, TAB Clopidogrel Bisulfate (Clopidogrel) 75 Mg Tablet 75 MG PO DAILY, TAB Ibuprofen (Advil) 200 Mg Tablet 400 MG PO TID PRN for PAIN-MILD, TAB TAKES 2 (200MG) TABLETS / ALTERNATES WITH ACETAMINOPHEN 500MG Insulin Lispro (Humalog Kwikpen) 200 Unit/1 Ml Insuln.pen 50 UNITS SQ AC, EA Lisinopril (Lisinopril) 20 Mg Tablet 20 MG PO DAILY, TAB LAST FILLED 09/11/16 #30 Metformin HCl (Metformin HCl) 1,000 Mg Tablet 1000 MG PO BID, TAB Multivitamin (Daily Multiple Vitamin) 1 Each Tablet 1 TAB PO DAILY, TAB Patient Instructions Goal/Follow Up Appt: You have a follow up appt with Wound care Tomorrow You have a follow up with Dr Barton on January 11 @ 340PM and at that time we will get you scheduled to see Dr Garcia at [facility] Patient Instructions: - Very important that you keep your wound care appts - Let you doctor know if wound opens up more or starts to have more drainage or you see red streaking up your leg - It is very important to check your blood sugars and get them at goal as this will affect you wound healing Return to The Hospital For: - Fever or Chills - Severe pain not relieved by pain medications - Chest pain - Shortness of breath Activity & Diet Discharge Diet: ADA Diet Activity as Tolerated: Yes Copy Copies To 1: RUBIA BARTON MD, HOLLY R MD Jan 02, 2017 19:22
--- NOTE | 2017-01-02 19:29 | Discharge Summary ---
Diagnosis/Chief Complaint Date of Admission Jan 01, 2017 at 15:50 Date of Discharge January 02, 2017 Admission Diagnosis Admission Diagnosis Diabetic foot wound Right foot Uncontrolled Type II DM: Insulin Dependent HTN Discharge Diagnosis Diabetic foot wound Right foot: Admitted for IV antibiotics and seen by Dr Gacria and Dr Chaidez during admission. Wound was debrided. Microbiology was reviewed from previous wound admission for antibiotic choice. He was sent home on PO antibiotics and has close follow up with wound care tomorrow. He will see Dr Garcia at [facility]. If wound does not seem to improve with antibiotics Dr Garcia recommends MRI of R foot to look for osteomyelitis. Uncontrolled Type II DM: Insulin Dependent: A1c 9.4 during this admission. Patient does not want to take long acting insulin as he states that it does not help his sugars. Continued on home insulin. Discussed with patient the importance of getting his A1c 6.5-7.0 which will allow for best wound healing. HTN: Controlled during admission. Continued home medications. Chief Complaint/HPI Chief Complaint/HPI 46 yo M with history of DM foot wound s/p R great toe amputation earlier this year that presented to [facility] same day for opening up of the incision and drainage. Patient states that it has been open for 2-3 days. + pus colored fluid coming from wound. He completed wound care clinic with hyperbaric treatments. States that he did not realize how bad it was getting because he has severe neuropathy of his foot. Denies any other wounds. No systemic signs of infection. Denies pain in foot. + swelling and redness that have been getting worse the last 2-3 days. Discharge Summary-Simple/Stand Consultations Dr Garcia: Podiatry Dr Chaidez: Wound Care Discharge Physical Examination Allergies: Coded Allergies: canagliflozin (Unverified Adverse Reaction, Unknown, 06/19/16) Vitals & I&Os Vital Sign - Last 12Hours Date Time Temp Pulse Resp B/P (MAP) Pulse Ox O2 Delivery O2 Flow Rate FiO2 01/02/17 15:44 98.0 94 20 118/58 95 Room Air Intake and Output 01/02/17 00:00 Intake Total 1180 ml Balance 1180 ml General Appearance: Alert, Oriented X3, Cooperative, No Acute Distress HEENT: PERRLA, Mucous Memb Moist/[place] Respiratory: Clear to Auscultation, Normal Air Movement Cardiovascular: Regular Rate, No Murmurs Abdominal: Normal Bowel Sounds, Soft, No Tenderness Extremities: Other (+ erythema around open wound, wound is packed and dressed this AM, no streaking in foot or leg) Neuro: Normal Gait, Normal Speech, Strength at 5/5 X4 Ext, Cranial Nerves 3-12 NL Psych/Mental Status: Mental Status NL, Mood NL Hospital Course See final discharge diagnosis. Radiology Reviewed CT R foot pending Discussion & Recommendations See D/c Diagnosis Discharge Condition at discharge stable Instructions to patient/family Please see electonic discharge instructions given to patient. Discharge Medications Reviewed and agree with Discharge Medication list on patient's Discharge Instruction sheet Clinical Quality Measures DVT/VTE Risk/Contraindication: Risk Factor Score Per Nursin RFS Level Per Nursing on Admit: 3=High RUBIA PARRISH MD Jan 02, 2017 19:29
[2017-01-02 21:54] VITALS: BP 118/58
[2017-01-03] MEDS ORDERED: TROUGH ORDER-PHARMACY XX NR (02:00)
[2017-03-30] MEDS ORDERED: ATOR20TA66 PO (15:42)
[2017-05-07] MEDS ORDERED: ATOR80TA76 PO (11:03)
[2017-05-09] MEDS ORDERED: HYDR-3812 PO (14:26)
== END 2017-01-02 19:17 | disposition home or self-care (01) ==
LOC: UNDOADMOB 15:50 → 4TH 15:50 → UNDODISOB 01-02 19:17
PROVIDERS: ADMIT Family Medicine; ATTEND Family Medicine
DX: L02.611 Cutaneous abscess of right foot (principal); E11.65 Type 2 diabetes mellitus with hyperglycemia; E11.40 Type 2 diabetes mellitus with diabetic neuropathy, unspecified; E08.59 Diabetes mellitus due to underlying condition with other circulatory complications; I10 Essential (primary) hypertension; I73.9 Peripheral vascular disease, unspecified; Z79.899 Other long term (current) drug therapy; Z79.02 Long term (current) use of antithrombotics/antiplatelets; Z79.4 Long term (current) use of insulin; Z89.411 Acquired absence of right great toe; Z98.62 Peripheral vascular angioplasty status
CPT/HCPCS: 36415; 73630; 73700; 80048; 80053; 80202; 82962; 83036; 85025; 87070; 87075; 87077; 87186; 87205; 99211; G0378

== ENCOUNTER 2017-01-10 08:03 | Outpatient (RCR) | payer OTHER | END 2017-01-15 16:00 | disposition home or self-care (01) | LOC: WOUNDCARE 08:03 | PROVIDERS: ATTEND Surgery | DX: E11.621 Type 2 diabetes mellitus with foot ulcer (principal); E11.42 Type 2 diabetes mellitus with diabetic polyneuropathy; E11.65 Type 2 diabetes mellitus with hyperglycemia; L97.513 Non-pressure chronic ulcer of other part of right foot with necrosis of muscle; L02.415 Cutaneous abscess of right lower limb | CPT/HCPCS: 11042; 11043; 87070; 87075; 87205 ==

== ENCOUNTER → 2017-01-17 | Outpatient (CLI) | payer OTHER ==
[~2017-01-17] MED LIST changes: +ASPI-983 PO; +ATOR80TA76 PO; +HYDR-3812 PO; +SODI473S7 TOP
== END ==
LOC: WOUNDCARE 07:55
PROVIDERS: ATTEND Surgery
DX: E11.621 Type 2 diabetes mellitus with foot ulcer (principal); E11.42 Type 2 diabetes mellitus with diabetic polyneuropathy; E11.65 Type 2 diabetes mellitus with hyperglycemia; L97.513 Non-pressure chronic ulcer of other part of right foot with necrosis of muscle
CPT/HCPCS: 11043

== ENCOUNTER → 2017-01-24 | Outpatient (CLI) | payer OTHER | LOC: WOUNDCARE 07:58 | PROVIDERS: ATTEND Surgery | DX: E11.621 Type 2 diabetes mellitus with foot ulcer (principal); L97.513 Non-pressure chronic ulcer of other part of right foot with necrosis of muscle; E11.42 Type 2 diabetes mellitus with diabetic polyneuropathy; E11.65 Type 2 diabetes mellitus with hyperglycemia | CPT/HCPCS: 11042; 87070; 87075; 87077; 87186; 87205 ==

== ENCOUNTER → 2017-01-31 | Outpatient (CLI) | payer OTHER ==
[2017-01-31 08:03] LABS: ANION GAP 12 MMOL/L (5-14); BLOOD UREA NITROGEN 16 MG/DL (7-18); BUN/CREATININE RATIO 15; CALCIUM 9.7 MG/DL (8.5-10.1); CARBON DIOXIDE 22 MMOL/L (21-32); CHLORIDE 101 MMOL/L (98-107); CREATININE SERUM 1.08 MG/DL (0.60-1.30); GFR ESTIMATED > 60; GLUCOSE 332 MG/DL (70-105); POTASSIUM 4.3 MMOL/L (3.6-5.0); SODIUM 135 MMOL/L (135-145)
== END ==
LOC: LAB 07:28
PROVIDERS: ATTEND Surgery
DX: E11.621 Type 2 diabetes mellitus with foot ulcer (principal); E11.42 Type 2 diabetes mellitus with diabetic polyneuropathy; E11.65 Type 2 diabetes mellitus with hyperglycemia; L97.513 Non-pressure chronic ulcer of other part of right foot with necrosis of muscle
CPT/HCPCS: 36415; 80048

== ENCOUNTER → 2017-01-31 | Outpatient (CLI) | payer OTHER ==
[~2017-01-31] MED LIST changes: -ASPI-983 PO; -ATOR80TA76 PO; -HYDR-3812 PO; -SODI473S7 TOP
== END ==
LOC: WOUNDCARE 07:57
PROVIDERS: ATTEND Surgery
DX: E11.621 Type 2 diabetes mellitus with foot ulcer (principal); L97.513 Non-pressure chronic ulcer of other part of right foot with necrosis of muscle; E11.42 Type 2 diabetes mellitus with diabetic polyneuropathy; E11.65 Type 2 diabetes mellitus with hyperglycemia
CPT/HCPCS: 11043

== ENCOUNTER → 2017-02-02 | Outpatient (CLI) | payer OTHER ==
[~2017-02-02] MED LIST changes: +ASPI-983 PO; +ATOR80TA76 PO; +HYDR-3812 PO; +SODI473S7 TOP
--- NOTE | 2017-02-02 17:22 | Diagnostic Imaging Report ---
EXAMINATION: Ulceration. COMPARISON: 01/02/2017. EXAMINATION: Three views of the right foot were obtained. FINDINGS: There are postoperative changes of prior amputation of the first toe at the level of the first metatarsal head. No radiopaque foreign bodies are seen. No new lytic or reactive changes are seen to suggest new/acute osteomyelitis. Degenerative changes at the first tarsometatarsal joint are again demonstrated. Overall there is been no significant interval change from the prior study. Plantar calcaneal spurring is again noted. No soft tissue gas is seen. IMPRESSION: Overall no interval change from the prior study. Amputation changes of the first toe are again demonstrated. No new or acute abnormality is suspected. Dictated by: Dictated on workstation # [id number]
== END ==
LOC: RAD 16:21
PROVIDERS: ATTEND Surgery
DX: Z89.411 Acquired absence of right great toe (principal); L97.513 Non-pressure chronic ulcer of other part of right foot with necrosis of muscle; E11.621 Type 2 diabetes mellitus with foot ulcer; E11.42 Type 2 diabetes mellitus with diabetic polyneuropathy; E11.65 Type 2 diabetes mellitus with hyperglycemia
CPT/HCPCS: 73630

== ENCOUNTER → 2017-02-14 | Outpatient (CLI) | payer OTHER | LOC: WOUNDCARE 07:58 | PROVIDERS: ATTEND Surgery | DX: I70.235 Atherosclerosis of native arteries of right leg with ulceration of other part of foot (principal); E11.621 Type 2 diabetes mellitus with foot ulcer; E11.42 Type 2 diabetes mellitus with diabetic polyneuropathy; E11.65 Type 2 diabetes mellitus with hyperglycemia; L97.513 Non-pressure chronic ulcer of other part of right foot with necrosis of muscle | CPT/HCPCS: 11042; 87070; 87075; 87077; 87186; 87205 ==

== ENCOUNTER → 2017-02-28 | Outpatient (CLI) | payer OTHER | LOC: WOUNDCARE 07:57 | PROVIDERS: ATTEND Surgery | DX: E11.621 Type 2 diabetes mellitus with foot ulcer (principal); L97.412 Non-pressure chronic ulcer of right heel and midfoot with fat layer exposed; I70.235 Atherosclerosis of native arteries of right leg with ulceration of other part of foot; E11.42 Type 2 diabetes mellitus with diabetic polyneuropathy; L97.513 Non-pressure chronic ulcer of other part of right foot with necrosis of muscle | CPT/HCPCS: 11042 ==

== ENCOUNTER → 2017-03-14 | Outpatient (CLI) | payer OTHER ==
[~2017-03-14] MED LIST changes: -ASPI-983 PO; -ATOR80TA76 PO; -HYDR-3812 PO; -SODI473S7 TOP
== END ==
LOC: WOUNDCARE 07:57
PROVIDERS: ATTEND Surgery
DX: E11.621 Type 2 diabetes mellitus with foot ulcer (principal); L97.412 Non-pressure chronic ulcer of right heel and midfoot with fat layer exposed; I70.235 Atherosclerosis of native arteries of right leg with ulceration of other part of foot; E11.42 Type 2 diabetes mellitus with diabetic polyneuropathy; L97.513 Non-pressure chronic ulcer of other part of right foot with necrosis of muscle
CPT/HCPCS: 11042; 11043; 87070; 87075; 87077; 87186; 87205

== ENCOUNTER → 2017-03-19 | Outpatient (CLI) | payer OTHER ==
--- NOTE | 2017-03-19 18:33 | Diagnostic Imaging Report ---
INDICATION: Chronic ulcer. TECHNIQUE: 3 views of the right foot. CORRELATION STUDY: 02/02/2017 FINDINGS: There is again noted amputation of the first toe at the level of the first metatarsal head. There has been development of significant erosive changes of the second metatarsal head and at the base of the proximal phalanx. Remaining osseous structures appear to be relatively stable and demonstrate no additional acute findings. Prominent calcaneal spur formation present. Vascular calcification is noted. IMPRESSION: 1. Development of erosive changes at the second metatarsal head and to a lesser degree base of the proximal phalanx. Given all findings, raised concern for osteomyelitis. Dictated by: Dictated on workstation # [id number]
== END ==
LOC: RAD 17:42
PROVIDERS: ATTEND Surgery
DX: M85.871 Other specified disorders of bone density and structure, right ankle and foot (principal); L97.413 Non-pressure chronic ulcer of right heel and midfoot with necrosis of muscle; E11.65 Type 2 diabetes mellitus with hyperglycemia; I70.235 Atherosclerosis of native arteries of right leg with ulceration of other part of foot; E11.621 Type 2 diabetes mellitus with foot ulcer; E11.42 Type 2 diabetes mellitus with diabetic polyneuropathy; L97.513 Non-pressure chronic ulcer of other part of right foot with necrosis of muscle
CPT/HCPCS: 73630

== ENCOUNTER → 2017-03-21 | Outpatient (CLI) | payer OTHER | LOC: WOUNDCARE 07:58 | PROVIDERS: ATTEND Surgery | DX: M85.871 Other specified disorders of bone density and structure, right ankle and foot (principal); E11.621 Type 2 diabetes mellitus with foot ulcer; I70.235 Atherosclerosis of native arteries of right leg with ulceration of other part of foot; L97.413 Non-pressure chronic ulcer of right heel and midfoot with necrosis of muscle; L97.513 Non-pressure chronic ulcer of other part of right foot with necrosis of muscle; E11.65 Type 2 diabetes mellitus with hyperglycemia; E11.42 Type 2 diabetes mellitus with diabetic polyneuropathy | CPT/HCPCS: 11042; 11043 ==

== ENCOUNTER 2017-03-30 10:51 | Day surgery (SDC) | payer OTHER ==
[~2017-03-30] VITALS: Ht 188 cm; Wt 117.9 kg
[2017-03-30] VITALS (11 sets, daily range): BP systolic 114–164; BP diastolic 47–90
[2017-03-30] MEDS ORDERED: NS IV 1000 ML 1,000 ML ONE (10:56)
[2017-03-30] MEDS ORDERED: HEParin (CATH LAB) 2,000 ML IV ONE (10:56)
[2017-03-30] MEDS ORDERED: NS IV 1000 ML 1,000 ML IV SCH ×2 (11:06→15:38)
[2017-03-30 11:26] LABS: MEAN PLATELET VOLUME 10.6 FL (7.4-10.4); RED BLOOD COUNT 4.74 10^6/uL (4.35-5.85); RED CELL DISTRIBUTION WIDTH 13.1 % (10.0-14.5); WHITE BLOOD COUNT 4.5 10^3/uL (4.3-11.0)
[2017-03-30 11:36] LABS: PROTHROMBIN TIME PATIENT 12.8 SEC (12.2-14.7)
[2017-03-30 11:47] LABS: ALANINE AMINOTRANSFERASE 16 U/L (0-55); ALBUMIN 4.2 GM/DL (3.2-4.5); ANION GAP 10 MMOL/L (5-14); ASPARTATE AMINO TRANSFERASE 22 U/L (5-34); BILIRUBIN,TOTAL 0.5 MG/DL (0.1-1.0); BLOOD UREA NITROGEN 10 MG/DL (7-18); BUN/CREATININE RATIO 12; CALCIUM 9.3 MG/DL (8.5-10.1); CARBON DIOXIDE 23 MMOL/L (21-32); CHLORIDE 106 MMOL/L (98-107); CHOLESTEROL 243 MG/DL (< 200); CREATININE SERUM 0.84 MG/DL (0.60-1.30); DIRECT LDL 195 MG/DL (1-129); GFR ESTIMATED > 60; GLUCOSE 192 MG/DL (70-105); SODIUM 139 MMOL/L (135-145); TOTAL PROTEIN 8.1 GM/DL (6.4-8.2); TRIGLYCERIDES 114 MG/DL (<150); VLDL CHOLESTEROL 23 MG/DL (5-40)
[2017-03-30 11:49] LABS: POTASSIUM 4.5 MMOL/L (3.6-5.0)
[2017-03-30] MEDS ORDERED: ASPI-983 PO (12:08)
[2017-03-30] MEDS ORDERED: SODI473S7 TOP (12:10)
[2017-03-30] MEDS ORDERED: MIDAZOLAM 5 MG/5 ML (VERSED) VIAL ONE ×2 (12:50→13:51)
[2017-03-30] MEDS ORDERED: fentaNYL INJECTION 100 MCG/2 ML AMP ONE (12:50)
[2017-03-30] MEDS ORDERED: diphenhydrAMINE 50 MG/ML INJ (BENADRYL) ONE (12:50)
[2017-03-30] MEDS ORDERED: HYDROmorphone (DILAUDID) 2 MG/ML VIAL ONE (13:49)
[2017-03-30] MEDS ORDERED: HEParin 1000 UNIT/ML (10ML VIAL) FOR BOLUS ONE (14:20)
[2017-03-30] MEDS ORDERED: CLOPIDOGREL 300 MG (PLAVIX) TABLET PO ONE (15:06)
[2017-03-30] MEDS ORDERED: ASPIRIN 325 MG (5 GR) TABLET ONE (15:15)
--- NOTE | 2017-03-30 15:35 | Cardiac Procedure Note-CS/ASA ---
Pre-Procedure Note Pre-Op Procedure Note H&P Reviewed The H&P was reviewed, patient examined and no changes noted. Date H&P Reviewed: Mar 30, 2017 Time H&P Reviewed: 13:00 Conscious Sedation Pre-Proced Time Reviewed: 13:00 ASA Class: 3 Airway Mallampati Classification: ([place] appropriate class) I. II. III, IV Lungs Heart ASA score ASA 1: a normal healthy patient ASA 2: a patient with a mild systemic disease (mid diabetes, controlled hypertension, obesity ASA 3: a patient with a severe systemic disease that limits activity (angina , COPD, prior Myocardial infarction) ASA 4: a patient with an incapacitating disease that is a constant threat to life (CHF, renal failure) ASA 5: a moribund patient not expected to survive 24 hrs. (ruptured aneurysm) ASA 6: a declared brain patient whose organs are being harvested. For emergent operations, add the letter E after the classification Grade 1 Sedation Plan: Analgesia, Amnesia, Plan communicated to team members, Discussed options with patient/fam, Discussed risks with patient/fam Note The patient is an appropriate candidate to undergo the planned procedure, sedation, and anesthesia. The patient immediately re-assessed prior to indication. Tania BANUELOS MD Mar 30, 2017 3:35 pm
--- NOTE | 2017-03-30 15:38 | Cardiology Post Procedure Note ---
Post-Procedure Note Physician (s)/Dining Service Inspector (s) Physician Tania BANUELOS MD Pre-Procedure Diagnosis Pre-Procedure Diagnosis: Right lower extremity Critical limb ischemia Post-Procedure Note Procedure Start Date: Mar 30, 2017 Procedure Start Time: 13:30 Name of Procedure: Peripheral angiography, EMERGENCY DEPARTMENT MANAGER to the right TP trunk, DP and AT. Findings/Procedure Note Severe, occlusive disease right AT. Severe ostial right DP disease. Moderate to severe to right TP trunk disease. Successful EMERGENCY DEPARTMENT MANAGER to all three vessels. Anesthesia Type: Conscious Sedation Estimated blood loss (mL): 20 Contrast Amount: 190 Post-Procedure Diagnosis Post-operative diagnosis: CLI, successful EMERGENCY DEPARTMENT MANAGER to right DP, TP trunk and AT Tania BANUELOS MD Mar 30, 2017 3:38 pm
[2017-03-30] MEDS ORDERED: ATOR20TA66 PO (15:42)
--- NOTE | 2017-03-30 15:43 | Discharge Inst-Post CATH ---
Discharge Inst-CATH Post Cardiac Cath D/C Inst Follow Up/Plan Follow up with wound clinic. Follow up with Dr Alcala in 2-3 weeks. CARDIAC CATH DISCHARGE INSTRUCTIONS *Hold Metformin for 48 hours post heart cath. ACTIVITY * Go Home directly and rest. * Limit activity of the leg (or wrist if it was used) for 7 days including aerobics, swimming, jogging, bicycling, etc. * Restrict stair-climbing for 7 days if possible, if not, climb up with your non -cath leg, then bring together on the same step. * Avoid lifting, pushing, pulling or excessive movement of the affected extremity for 7 days. * Customary sexual activity may be resumed after 2 days-use caution not to use a position that strains or causes pain to the affected extremity. * No driving for 24 hours. * NO SMOKING. * Avoid straining for bowel movements for 7 days. * Gentle walking on level ground is allowed. * Returning to work will depend on the type of procedure and the results. Your doctor will discuss this with you. CALL YOUR DOCTOR FOR ANY OF THE FOLLOWING: *If bleeding from the puncture site occurs- Apply gentle pressure to site with clean cloth and call your doctor or EMS. * If a knot or lump forms under the skin, increases in size, or causes pain. * If bruising appears to be worsening or moving further down your leg instead of disappearing. * Temperature above 101 F. CARE OF YOUR GROIN INCISION; * Bruising or purple discoloration of the skin near the puncture site is common. * You may shower only, no bathtub bathing for 5 days. Be careful to avoid slipping as your leg may feel stiff. * If a closure device was used on your femoral artery, please see the attached guide regarding care of the device and your leg. * REMOVE the dressing from your groin the next day after your procedure in the shower. CARE OF YOUR WRIST INCISION; * Bruising or purple discoloration of the skin near the puncture site is common. * You may shower. * DO NOT submerge wrist. * Remove dressing in 24 hours. Tania ALCALA MD Mar 30, 2017 3:43 pm
[2017-03-30] MEDS ORDERED: PATIENT MAY USE OWN MEDS, ALL PO SCH (15:45)
[2017-03-31 00:04] VITALS: BP 127/47
--- NOTE | 2017-03-31 15:52 | OPERATIVE REPORT ---
DATE OF SERVICE: 03/30/2017 REFERRING PHYSICIAN: Dr. Lee Cagle. PERFORMING PHYSICIAN: Dr. Cecilia Alcala. INDICATION: Right lower extremity critical limb ischemia with nonhealing ulcer. PREOPERATIVE DIAGNOSIS: Right lower extremity critical limb ischemia with nonhealing ulcer. POSTOPERATIVE DIAGNOSIS: Successful balloon angioplasty of right anterior tibial artery, tibioperoneal trunk and deep peroneal artery. HISTORY: The patient is a 46-year-old gentleman who has history of diabetes. He previously presented to us with a nonhealing ulcer and was found to have severe usoma-idc-bcde disease. Successful balloon angioplasty was performed with significant resolution of the ulcer. However, 3 months later he developed another nonhealing ulcer. Noninvasive vascular evaluation was suspicious for significant ntvqo-pxa-qjtk disease. Therefore he was consented for peripheral angiography and intervention. The patient was already on optimal medical therapy which included aspirin, Plavix and statin. PROCEDURE PERFORMED: 1. Abdominal aortogram with bilateral lower extremity runoff. 2. Selective angiogram of the distal SFA, popliteal artery and below the knee. 3. Balloon angioplasty to the right anterior tibial artery. 4. Balloon angioplasty to the right tibioperoneal trunk. 5. Balloon angioplasty to the right deep peroneal artery. 6. Mynx closure of the left common femoral artery. SPECIMEN: None. ANTICOAGULATION: IV heparin. COMPLICATIONS: None. BLOOD LOSS: 20 mL. CONTRAST: 190 mL of Omnipaque. FLUOROSCOPY TIME: 15.5 minutes. FLUOROSCOPY DOSE: 422 mGy. PROCEDURE DETAILS: The patient was brought to the catheter builder after informed consent was taken. All the risks and complications were explained in detail. He was draped and prepped in the usual sterile fashion. Access was gained in the left common femoral artery with a 6-Cambodian sheath. We advanced a pigtail catheter in the distal abdominal aorta and performed an abdominal aortogram with bilateral lower extremity runoff. We then performed a crossover with a Dacentec wire and the pigtail catheter into the right distal superficial femoral artery. The pigtail catheter was then taken out. The 6-Cambodian sheath was taken out and was exchanged with a long 6-Cambodian x 90 cm sheath. The sheath was advanced into the distal SFA. The wire was taken out and selective angiogram of the distal SFA, popliteal artery and below the knee was performed. Right lower extremity: No significant disease is noted in the distal abdominal aorta, right common iliac artery, external iliac artery, the common femoral artery, distal superficial femoral artery, popliteal artery. Moderate to severe disease is noted in the right tibioperoneal trunk. There is severe stenosis of the ostium of the deep peroneal artery. There are severe tandem occlusive lesions of the anterior tibial artery from the proximal and the mid segment. However, the anterior tibial artery reconstitutes in the distal aspect and supplies the foot. The deep peroneal artery also supplies the foot. The posterior tibial artery is a small vessel and tapers and disappears in the mid calf area. Therefore, the patient has a 2-vessel runoff below the knee in the right lower extremity. Left lower extremity: Normal left common iliac artery, external iliac artery, common femoral artery, superficial femoral artery, popliteal artery. Below the knee disease is difficult visualize because of movement. RECOMMENDATIONS: 1. USABILITY STRATEGIST is recommended to the right anterior tibial artery. 2. USABILITY STRATEGIST is recommended to the right tibioperoneal trunk. 3. USABILITY STRATEGIST is recommended to the proximal deep peroneal artery. VASCULAR INTERVENTION DETAILS: IV heparin was given for anticoagulation. We took an 0.014 grand slam wire and a 2.5 x 200 x 150 Bristol 14 balloon. The tip of the grand slam wire was placed in the mid aspect of the right deep peroneal artery. Balloon inflation was performed for 3 minutes for 14 atmospheres. Afterwards, the balloon was removed and peripheral angiography showed significant improvement in blood flow as well as mild residual stenosis. This was satisfactory results. We then took another grand slam wire and crossed into the anterior tibial artery. There were numerous occlusive segments in the anterior tibial artery. Therefore, with some difficulty with the balloon tip and the grand slam wire, we were able to get into the distal anterior tibial artery. The wire was taken out and through the lumen of the balloon an angiogram was performed which showed that we were intraluminal. We then took another grand slam wire and placed it into the distal anterior tibial artery. A balloon inflation was performed at 14 atmospheres for 3 minutes in the mid aspect segment of the anterior tibial artery. We then took the balloon back and did another inflation at 14 atmospheres for 3 minutes in the proximal segment of anterior tibial artery. Afterwards, the balloon was taken out and an angiogram showed excellent results with no significant residual stenosis and good blood flow to the foot. The wire and the balloon were taken out. The sheath was also taken out to the level of the bifurcation. Another angiogram was performed which showed no damage to the bifurcation. Afterwards, the long sheath was removed and replaced with a short 6-Cambodian sheath. Mynx closure was performed at the end of the procedure. The patient tolerated the procedure well and did not have any complication. IMPRESSION AND CONCLUSION: 1. Successful balloon angioplasty to the right anterior tibial artery, tibioperoneal trunk and deep peroneal artery. 2. Continue aspirin, Plavix and statin. 3. Hopefully the patient will be discharged later today. The patient will follow up in the wound clinic, Dr. Lee Cagle, within the next one week, and follow up with our clinic in 2-3 weeks. Job ID: [id number] DocumentID: [id number] Dictated Date: 03/31/2017 14:27:41 Bottom Finisher Date: 03/31/2017 15:51:28 Dictated By: CECILIA ALCALA MD MTDD
== END 2017-03-30 21:22 | disposition home or self-care (01) ==
LOC: CATH 10:51 → ICU 16:02 → CATH 21:22
PROVIDERS: ATTEND Internal Medicine Interventional Cardiology
DX: L97.919 Non-pressure chronic ulcer of unspecified part of right lower leg with unspecified severity (principal); I70.201 Unspecified atherosclerosis of native arteries of extremities, right leg; E11.622 Type 2 diabetes mellitus with other skin ulcer; Z79.899 Other long term (current) drug therapy; Z79.4 Long term (current) use of insulin; Z98.62 Peripheral vascular angioplasty status
CPT/HCPCS: 36247; 36415; 37228; 37232; 75630; 75774; 80053; 80061; 82962; 85027; 85347; 85610; 85730; 87081; 93005

== ENCOUNTER → 2017-05-01 | Outpatient (CLI) | payer OTHER ==
[~2017-05-01] MED LIST changes: +ASPI-983 PO; +CATHETER FLUSH 10 ML SYR IV PRN; +SODI473S7 TOP
--- NOTE | 2017-05-01 20:10 | Diagnostic Imaging Report ---
Three-phase bone scan. TECHNIQUE: After the administration of 26.0 mCi of technetium 99m-MDP intravenously, three-phase bone scan images are obtained in the flow phase, blood pool and delayed phase images over the feet. INDICATION: Chronic ulcer of the right foot. FINDINGS: There is hyperemia along the lateral aspect of the foot at the metatarsal level. Blood pool images demonstrate moderate increased uptake along the lateral aspect of the foot at the metatarsal level. There is a moderately intense increased uptake on delayed phase imaging within the distal aspect of the fifth metatarsal and proximal aspect of the proximal phalanx of the fifth digit. There is zgmh-[id number] increased uptake along the distal aspect of the second metatarsal also seen. This has lesser specificity since blood pool images and the flow images demonstrate only minimal increased uptake. This however is a site of prominent erosion based on x-ray from 03/19/2017. No more recent x-ray to correlate is available. IMPRESSION: 1. Triphasic increased uptake about the fifth metatarsophalangeal joint suggestive of osteomyelitis. 2. Mild increased uptake along the distal aspect of the second metatarsal which previously showed erosions on bone radiograph from 03/19/2017. This could relate to treated osteomyelitis. New radiograph correlation is recommended. Dictated by: Dictated on workstation # [id number]
== END ==
LOC: CARD 08:20
PROVIDERS: ATTEND Podiatrist Foot & Ankle Surgery
DX: L97.319 Non-pressure chronic ulcer of right ankle with unspecified severity (principal)
CPT/HCPCS: 78315

== ENCOUNTER 2017-05-07 11:04 | Outpatient (CLI) | payer OTHER ==
[~2017-05-07] VITALS: Ht 188 cm; Wt 113.4 kg
[~2017-05-07 11:04] MED LIST changes: +ATOR80TA76 PO; -CATHETER FLUSH 10 ML SYR IV PRN
== END 2017-05-07 12:22 ==
LOC: PREOP 11:04
PROVIDERS: ATTEND Podiatrist Foot & Ankle Surgery
DX: Z01.818 Encounter for other preprocedural examination (principal); M86.671 Other chronic osteomyelitis, right ankle and foot

== ENCOUNTER 2017-05-09 10:56 | Day surgery (SDC) | payer OTHER ==
[~2017-05-09] VITALS: Ht 188 cm; Wt 123.9 kg
[2017-05-09 11:00] VITALS: BP 136/86
[2017-05-09] MEDS ORDERED: SEVOFLURANE (ULTANE) 15 ML INHAL SOLN ONE (11:10)
[2017-05-09] MEDS ORDERED: ONDANSETRON 4 MG/2 ML (SDV) Z0FRAN ONE ×2 (11:10→14:14)
[2017-05-09] MEDS ORDERED: LIDOCAINE PF 2% 5 ML (XYLOCAINE) VIAL ONE (11:10)
[2017-05-09] MEDS ORDERED: proPOfol 200 MG/20 ML (DIPRIVAN) VIAL IV ONE (11:10)
[2017-05-09] MEDS ORDERED: MIDAZOLAM 2 MG/2 ML (VERSED) VIAL ONE (11:11)
[2017-05-09] MEDS ORDERED: fentaNYL INJECTION 100 MCG/2 ML AMP ONE ×2 (11:11→12:51)
[2017-05-09] MEDS ORDERED: ceFAZolin 1 GM/NS 50 ML IVPB IV ONE ×2 (11:15)
[2017-05-09] MEDS ORDERED: CATHETER FLUSH 10 ML SYR IV PRN (11:15)
[2017-05-09] MEDS: LACTATED RINGERS 1,000 ML IV PRN ×2 (11:20→13:25)
[2017-05-09] MEDS ORDERED: BUPIVACAINE 0.5% 30 ML (SENSORCAINE) VIAL ONE (12:19)
[2017-05-09] MEDS ORDERED: LIDOCAINE 1% INJ 20 ML (XYLOCAINE) VIAL ONE (12:19)
[2017-05-09] MEDS ORDERED: VANCOMYCIN 1000 MG/VIAL ONE (12:32)
--- NOTE | 2017-05-09 12:33 | Progress Note-Pre Operative ---
Pre-Operative Progress Note H&P Reviewed The H&P was reviewed, patient examined and no changes noted. Date Seen by Provider: May 09, 2017 Time Seen by Provider: 12:32 Date H&P Reviewed: May 09, 2017 Time H&P Reviewed: 12:32 Pre-Operative Diagnosis: Osteomyelitis of the right 5th metatarsal and possibly the 2nd metatasrsal, DALI MIRZA DPM May 09, 2017 12:33 pm
[2017-05-09] MEDS ORDERED: morphine INJ 10 MG/ML 1ML (SYR OR VIAL) IVP PRN (14:15)
[2017-05-09] MEDS ORDERED: ONDANSETRON 4 MG/2 ML (SDV) Z0FRAN IVP PRN ×2 (14:15→14:30)
--- NOTE | 2017-05-09 14:19 | Progress Note-Post Operative ---
Post-Operative Progess Note Surgeon (s)/Curbstone Setter (s) Surgeon DALI MIRZA DPM Curbstone Setter: None Pre-Operative Diagnosis Osteomyelitis of the right 5th metatarsal and possibly the 2nd metatasrsal, Post-Operative Diagnosis Same Procedure & Operative Findings Date of Procedure 05/09/17 Procedure Performed/Findings Transmetatarsal Amputation of the right foot Anesthesia Type General Estimated Blood Loss Estimated blood loss (mL): Minimal Specimens/Packing Specimens Removed right forefoot DALI MIRZA DPM May 09, 2017 2:18 pm
[2017-05-09] MEDS ORDERED: PROMETHAZINE INJ 25 MG/ML (PHENERGAN) AMP ONE (14:22)
[2017-05-09] MEDS ORDERED: HYDR-3812 PO (14:26)
[2017-05-09] MEDS: PROMETHAZINE INJ 25 MG/ML (PHENERGAN) AMP IVP PRN ×2 (14:32→14:45)
--- NOTE | 2017-05-09 15:08 | Diagnostic Imaging Report ---
INDICATION: Postop foot. COMPARISON: 03/19/2017. FINDINGS: Frontal and lateral radiographic views of the right foot were obtained. Patient is status post interval partial amputation of the right foot at the mid metatarsals. There is overlying soft tissue swelling and soft tissue emphysema. Radiopaque ribbon is also noted and may be on the basis of surgical dressing. No acute fracture or dislocation is identified. Note is made of calcified atherosclerosis greater than expected for patient's age. IMPRESSION: 1. Interval partial amputation of the right foot. 2. Soft tissue swelling and soft tissue emphysema. 3. Radiopaque ribbon. Correlation for patient's dressing is recommended. Dictated by: Dictated on workstation # [id number]
[2017-05-09 16:00] VITALS: BP 104/61
[2017-05-09] MEDS: LACTATED RINGERS 1,000 ML IV SCH ×2 (16:39→23:11)
[2017-05-09] MEDS ORDERED: INFLUENZA TRIvalent 2017-2018 0.5 ML/45 MCG SYR IM ONE (17:30)
[2017-05-09 20:00] VITALS: BP 116/67
[2017-05-09] MEDS: inSUlin (REGULAR) HUMAN 1 UNIT/0.01 ML (CHARGE PER UNIT) SC SCH (20:34)
[2017-05-09] MEDS: HYDROcodone/APAP 5 MG/325 MG (LORTAB) TAB PO PRN (21:09)
--- NOTE | 2017-05-09 21:16 | OPERATIVE REPORT ---
DATE OF SERVICE: 05/09/2017 SURGEON: Yelitza Garcia DPM. PREOPERATIVE DIAGNOSIS: Osteomyelitis, right fifth metatarsal and right second metatarsal. POSTOPERATIVE DIAGNOSIS: Osteomyelitis, right fifth metatarsal and right second metatarsal. PROCEDURE: Transmetatarsal amputation right foot. WOUND CLASS: Contaminated. ANESTHESIA: General. HEMOSTASIS: Pneumatic thigh tourniquet at 300 mmHg. INDICATION: This 46-year-old male presents with a chronic ulceration to the lateral aspect of the right foot. There is nonhealing wound. He had several attempts at conservative therapy and has met with unsatisfactory results and the patient is agreeable to surgical intervention after a bone scan indicated osteomyelitis of the fifth and possibly the second metatarsal. No guarantees were extended to the patient and he is willing to proceed with the procedure. PROCEDURE: The patient was brought back to the operative table, placed in secure supine position. Appropriate time out was performed. A general anesthetic was then induced. The right foot was then prepped and draped in normal sterile manner. The right foot was then elevated and allowed to exsanguinate after which the tourniquet was inflated to 300 mmHg. Attention was then directed to the dorsal aspect of the right second metatarsophalangeal joint where a 2 cm longitudinal linear incision was created and extended down to the second metatarsal head, which was extremely soft and consistent with osteomyelitis. Since he has osteomyelitis of the second and fifth metatarsal as well as a previous amputation of the first metatarsal head, I do not feel that it would be appropriate to leave the third and fourth metatarsal which would be the likely pressure point and future amputation sites for the patient. I thought it was in his best interest to perform a transmetatarsal amputation to reproduce a parabola and allow the patient to ambulate in a more natural gait. Attention was then directed to the dorsal aspect of the right forefoot where a curvilinear incision was created from the surgical neck area of the first metatarsal, dorsal distal and then back to proximal lateral aspect of the surgical neck of the fifth metatarsal. Next a flap was provided inferiorly. The incision was created from the same starting point to the sulcus area along the toes back to the fifth metatarsal lateral aspect. Next, dissection was carried out to the dorsal aspect of the metatarsals where utilizing a power sagittal saw, the orientation was from dorsal distal to plantar proximal to the first, second, third, fourth and fifth metatarsals and attempt to reproduce the natural parabola. No plantar spikes were left behind. The soft tissue was then disarticulated from the foot for the remaining metatarsal heads as well as the remaining digits. Dissection was carried out to the fifth metatarsal head where a rongeur was utilized to take a bone specimen for culture and sensitivity. Swab culture was also taken to the second metatarsal head where there is significant bone erosion noted clinically. Next, dissection was carried out to the flexor extensor tendons and they were cut as proximally as possible. The wound was inspected to the fifth metatarsal area and there was no necrosis or purulent pockets noted. The tissues seemed viable. It should be noted that the amputation included the ulceration site to the fifth metatarsal head area. Power irrigation was then performed with 3 liters of normal saline with 1 gram of vancomycin. The post-flush swab culture was taken. Next, the tourniquet was released and any active bleeders were then cauterized. The plantar flap flushed pink. The wound was flushed once again by hand. Ancillary incision was created to the lateral aspect of the amputation just proximal to the fifth metatarsal amputation site. A quarter inch Ralph drain was then introduced to the plantar flap and out the ancillary incision. The wound was then closed without tension. Closure was then performed with 4-0 Vicryl in a simple interrupted type stitch. The tourniquet was released second time and noting appropriate cap refill time to the remaining flap of the right foot. Postoperative injection consisted of 16 mL of 0.5% Marcaine plain. Postoperative dressing consisted of Betadine soaked Adaptic, sterile 4 x 4, fluffs, Kerlix and Coban wrap. The patient tolerated the anesthesia and procedure well and was transported from the operating room to the recovery area with vital signs stable and vascular status intact to the remaining right forefoot. The patient is to be held overnight for observation and for the possible pulling of the drain tomorrow morning depending on how much exudate and drainage we have. The patient will remain on his current p.o. antibiotic. He was given a prescription for Vicodin as well. He is to follow up in the [facility] in one week period of time or sooner if necessary. Job ID: [id number] DocumentID: [id number] Dictated Date: 05/09/2017 14:36:06 Brick Tender Date: 05/09/2017 21:16:00 Dictated By: SUNNY MORRISSEY
[2017-05-10 00:30] VITALS: BP 137/71
[2017-05-10] MEDS: HYDROcodone/APAP 5 MG/325 MG (LORTAB) TAB PO PRN ×2 (01:41→05:45)
[2017-05-10 04:13] VITALS: BP 126/70
[2017-05-10] MEDS: inSUlin (REGULAR) HUMAN 1 UNIT/0.01 ML (CHARGE PER UNIT) SC SCH (05:23)
[2017-05-10] MEDS: LACTATED RINGERS 1,000 ML IV SCH (05:23)
[2017-05-10 08:00] VITALS: BP 142/75
--- NOTE | 2017-05-10 08:09 | Podiatry Progress Note ---
Standard Progress Note Progress Notes/Assess & Plan Date Seen by Provider: May 10, 2017 Time Seen by Provider: 08:03 Progress/Assessment & Plan Post op day #1. Some pain managed with PO medication. He denies F/C/N/V. Crutch training has not happened. The dressing is intact with no active bleeding once the outer layers were exposed. Good CFT to the plantar flap to the amputation site. There is no proximal streaking. 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 A/P: post op Transmetatarsal Amputation of the right foot. MRSA osteomyelitis Removed drain today. New sterile dressing applied. D/C Keflex and Rx Bactrim DS. He is to be non-weight bearing right foot. Okay to discharge to home. He will follow up in the [facility] on May 18 at 8am or sooner if needed. Final Diagnosis Osteomyelitis right foot S/P Transmetatarsal Amputation right DALI MIRZAM May 10, 2017 08:09
[2017-05-10 10:00] VITALS: BP 138/88
[2017-05-10] MEDS ORDERED: SULF1TAB35 PO (13:20)
== END 2017-05-10 10:00 | disposition home or self-care (01) ==
LOC: SDC 10:56 → 4TH 17:28 → SDC 05-10 10:00
PROVIDERS: ATTEND Podiatrist Foot & Ankle Surgery
DX: M86.671 Other chronic osteomyelitis, right ankle and foot (principal); Z11.2 Encounter for screening for other bacterial diseases; E11.621 Type 2 diabetes mellitus with foot ulcer; I73.9 Peripheral vascular disease, unspecified; L97.519 Non-pressure chronic ulcer of other part of right foot with unspecified severity; Z79.84 Long term (current) use of oral hypoglycemic drugs; Z79.899 Other long term (current) drug therapy; Z79.82 Long term (current) use of aspirin; Z79.1 Long term (current) use of non-steroidal anti-inflammatories (NSAID); Z79.02 Long term (current) use of antithrombotics/antiplatelets
CPT/HCPCS: 73620; 82962; 87070; 87075; 87077; 87081; 87186; 87205